=== PATIENT | female | born 1935 | race Caucasian/White ===

== ENCOUNTER 2018-11-04 15:39 | Observation (INO) | payer MEDICARE, MEDICAID ==
[2018-11-04] MEDS ORDERED: SIMVASTATIN 10 MG PO SCH (20:45)
[2018-11-04] MEDS ORDERED: ROPINIROLE HCL 0.25 MG PO SCH (21:15)
[2018-11-05 07:57] VITALS: BP 127/68
[2018-11-05] MEDS ORDERED: ASPIRIN 325 MG PO SCH (08:00)
[2018-11-05] MEDS ORDERED: CARTIA XT 120 MG PO SCH (08:00)
--- NOTE | 2018-11-05 09:02 | CT ---
DATE OF SERVICE: 11/04/2018 CLINICAL DATA: Mental Status Change Unenhanced brain CT: Multislice acquisition through the brain without IV contrast was performed. Comparison is made to a prior exam dated 04/18/2013 There is diffuse cerebral atrophy. There are periventricular lucencies bilaterally consistent with small vessel ischemic change. There is a subtle lucency in the left basal ganglia not present on the prior CT suspicious for a acute/subacute infarct. No masses or mass effect. No intracranial hemorrhage. No osseous abnormalities. No other significant interval changes from the prior. MTDD
--- NOTE | 2018-11-05 13:04 | PCM.DCSUM1 ---
Discharge Summary - Hospital Course HPI Initial Comments: Mental status change Brief History: Patient admitted 11/04/18 per social welfare clerk request due to patien being a possible vulnerable adult. Mental status change was reported by social welfare clerk and there was concern of patient being safe in the home. Patient had left burner on. After evaluation, patient does not appear to be cognitivley impaired. Patient will be discharged to home. building services coordinator contacted and notified of patient's discharge. Diagnosis: Stroke: No Modified Curtis Scale: No Symptoms at All Modified Curtis Scale Score: 0 - Discharge Data Discharge Date: 11/06/18 Discharge Disposition: Home, Self-Care 01 Condition: Good - Patient Summary/Data Consults: Consultations 11/04/18 15:54 OT Evaluation and Treatment [CONS] Routine Please Evaluate and Treat. OT Reason for Consult: ADL's This query below is only for informational purposes and is not editable. PT Evaluation and Treatment [CONS] Routine Please Evaluate and Treat. PT Reason for Consult: Balance This query below is only for informational purposes and is not editable. - Patient Instructions Diet: Regular Diet as Tolerated Showering/Bathing: May Shower - Discharge Plan Home Medications: Home Meds Aspirin 325 mg PO DAILY 04/23/13 [History] Omeprazole 20 mg PO ACBREAKFAST 04/23/13 [History] Pindolol 10 mg PO BID 04/23/13 [History] fentaNYL [Duragesic] 50 mcg TD Q72H 04/23/13 [History] FLUoxetine [PROzac] 10 mg PO BID 07/07/14 [History] Diltiazem HCl [Diltiazem 12Hr ER] 120 mg PO DAILY 11/04/18 [History] Melatonin 5 mg PO BEDTIME 11/04/18 [History] Simvastatin 10 mg PO QPM 11/04/18 [History] rOPINIRole HCl [Requip] 0.25 mg PO DAILY 11/04/18 [History] Patient Handouts: Fire Safety - Discharge Summary/Plan Comment DC Time >30 min.: No - Patient Data Vitals - Most Recent: Last Vital Signs Temp 97.1 F 11/05/18 07:55 Pulse 68 11/05/18 07:55 Resp 16 11/05/18 07:55 BP 127/68 11/05/18 07:55 Pulse Ox 98 11/05/18 07:55 Weight - Most Recent: 110 lb Lab Results - Last 24 hrs: Laboratory Results - last 24 hr 11/04/18 11/04/18 11/04/18 Range/Units 16:19 16:19 19:11 WBC 8.0 (4.0-11.0) K/uL RBC 4.50 (3.80-5.80) M/uL Hgb 13.4 (11.5-16.5) g/dL Hct 40.2 (37.0-47.0) % MCV 89 (76-96) fL MCH 29.8 (27.0-32.0) pg MCHC 33.3 (31.0-35.0) g/dL RDW 12.6 (11.0-16.0) % Plt Count 300 (150-500) K/uL MPV 9.5 (6.0-10.0) fL Neut % (Auto) 73.5 H (45.0-70.0) % Lymph % (Auto) 16.3 L (20.0-40.0) % [place] % (Auto) 7.6 (3.0-10.0) % Eos % (Auto) 2.0 (1.0-5.0) % Baso % (Auto) 0.6 H (0.0-0.5) % Neut # (Auto) 5.91 (2.00-7.50) K/uL Lymph # (Auto) 1.31 L (1.50-4.00) K/uL [place] # (Auto) 0.61 (0.20-0.80) K/uL Eos # (Auto) 0.16 (0.04-0.40) K/uL Baso # (Auto) 0.05 (0.02-0.10) K/uL Sodium 139 (136-145) mmol/L Potassium 4.3 (3.5-5.1) mmol/L Chloride 102 (98-107) mmol/L Carbon Dioxide 26.8 (21.0-32.0) mmol/L Anion Gap 14.5 (5.0-15.0) mmol/L BUN 12 (8-26) mg/dL Creatinine 0.54 L (0.55-1.02) mg/dL Est Cr Clr Drug Dosing TNP Estimated GFR (MDRD) > 60 (>60) MLS/MIN BUN/Creatinine Ratio 22.2 (6-25) Glucose 117 H (74-100) mg/dL Calcium 8.5 (8.5-10.1) mg/dL Total Bilirubin 0.5 (0.0-1.0) mg/dL AST 23 (15-37) U/L ALT 22 (12-78) U/L Alkaline Phosphatase 76 (46-116) U/L Total Protein 6.6 (6.4-8.2) g/dL Albumin 3.5 (3.4-5.0) g/dL Globulin 3.1 (2.2-4.2) g/dL Albumin/Globulin Ratio 1.1 (0.8-2.0) TSH, Ultra Sensitive 0.793 D (0.358-3.740) uIU/mL Urine Color Yellow Urine Appearance Clear (CLEAR) Urine pH 5.5 (5.0-8.0) Ur Specific [place] 1.025 (1.003-1.030) Urine Protein Negative (NEGATIVE) mg/dL Urine Glucose (UA) Negative (NEGATIVE) mg/dL Urine Ketones Negative (NEGATIVE) mg/dL Urine Occult Blood Negative (NEGATIVE) Urine Nitrite Negative (NEGATIVE) Urine Bilirubin Negative (NEGATIVE) Urine Urobilinogen 0.2 (0.2-1.0) E.U./dL Ur Leukocyte Esterase Negative (NEGATIVE) Urine RBC Not seen /HPF Urine WBC 0-5 H /HPF Ur Squamous Epith Cells Few /HPF DELIO Results - Last 24 hrs: Microbiology 11/04/18 16:37 MRSA Culture - Final Nares, Unspecified NO MRSA ISOLATED Med Orders - Current: Current Medications Aspirin [Aspirin] 325 Mg Enteric Coated Pt Own 325 mg PO DAILY [facility] Last Admin: 11/05/18 07:40 Dose: 325 mg Cartia Xt 120 MgPt (Own) 120 mg PO DAILY [facility] Last Admin: 11/05/18 07:40 Dose: 120 mg (Fluoxetine [Prozac] (10 Mg)*Pt Own Med*) 10 mg PO BID [facility] Last Admin: 11/05/18 07:42 Dose: 10 mg (Melatonin [ Melatonin] 5 Mg)*Pt Own Med* 5 mg PO BEDTIME [facility] Last Admin: 11/04/18 20:51 Dose: 5 mg (Omeprazole [ Omeprazole] 20 Mg)* Pt Own Med* 20 mg PO ACBREAKFAST [facility] Last Admin: 11/05/18 07:20 Dose: 20 mg (Pindolol [Pindolol] (10 Mg)*Pt Own Med*) 10 mg PO BID [facility] Last Admin: 11/05/18 07:41 Dose: 10 mg Ropinirole Hcl [ Requip] 0.25 MgPt Own 0.25 mg PO BEDTIME [facility] Last Admin: 11/04/18 21:00 Dose: 0.25 mg (Simvastatin [ Simvastatin] 10 Mg)* Pt Own Med* 10 mg PO QPM [facility] Last Admin: 11/04/18 20:50 Dose: 10 mg
== END 2018-11-05 13:10 | disposition home or self-care (01) ==
LOC: LB.MS 15:39 → UNDOADMOB 15:39 → LB.MS 15:54
PROVIDERS: ADMIT Nurse Practitioner Family; ATTEND Nurse Practitioner Family
DX: R41.82 Altered mental status, unspecified (principal); Z88.5 Allergy status to narcotic agent; Z88.0 Allergy status to penicillin; Z79.51 Long term (current) use of inhaled steroids; Z79.82 Long term (current) use of aspirin; Z79.899 Other long term (current) drug therapy
CPT/HCPCS: 36415; 70450; 80053; 81001; 84443; 85025; 87070; A9270; G0378

== ENCOUNTER 2018-11-13 13:19 | Inpatient (IN) | payer MEDICARE, MEDICAID ==
--- NOTE | 2018-11-13 14:38 | EDM.PDOC ---
ED HPI GENERAL MEDICAL PROBLEM - General Chief Complaint: Behavioral/Psych Stated Complaint: CONFUSION Time Seen by Provider: 11/13/18 14:15 Source of Information: Reports: Patient, RN, Other (Sarai BENNETT) - History of Present Illness INITIAL COMMENTS - FREE TEXT/NARRATIVE: 83 yr female presents with the county Sarai BENNETT. Pt quit taking her Fentanyl about 5 days ago. She was concerned about taking the strong pain medicine. Her sister told her it is a strong medicine and she shouldn't be taking it. She does take flonase about daily. States she doesn't have her medications set- up and does place them in the room to take them daily. Pt states she is having pain to the right shoulder and would like to have another injection for the pain. States she is seeing hallucinations, people in her apartment, lying in her closet. States they are mean and will spray things in her eyes. States they don't talk to her. DONALD is concerned of her safety in her home and would like to determine if there is any health concerns that could be causing the hallucinations. If no health concerns, then possible termite exterminator care would be needed. - Related Data Allergies Allergy/AdvReac Type Severity Reaction Status Date / Time latex Allergy Unknown Hives Verified 11/13/18 14:02 Penicillins Allergy Cannot Verified 11/13/18 14:02 Remember meperidine HCl [From Demerol] AdvReac Nausea Verified 11/13/18 14:02 tramadol AdvReac Nausea and Verified 11/13/18 14:02 Vomiting Home Meds: Home Meds Aspirin 325 mg PO BID 04/23/13 [History] Omeprazole 20 mg PO ACBREAKFAST 04/23/13 [History] Pindolol 10 mg PO BID 04/23/13 [History] fentaNYL [Duragesic] 50 mcg TD Q72H 04/23/13 [History] FLUoxetine [PROzac] 10 mg PO BID 07/07/14 [History] Diltiazem HCl [Diltiazem 12Hr ER] 120 mg PO DAILY 11/04/18 [History] Melatonin 5 mg PO BEDTIME 11/04/18 [History] Simvastatin 10 mg PO QPM 11/04/18 [History] rOPINIRole HCl [Requip] 0.25 mg PO DAILY 11/04/18 [History] Fluticasone Propionate [Flonase] 1 spray NASBOTH QPM 11/13/18 [History] Mv-Min/Iron/Folic/Calcium/Vitk [Women's Multivitamin Tablet] 1 each PO DAILY [History] diphenhydrAMINE [Benadryl] 25 mg PO Q6H PRN 11/13/18 [History] Past Medical History HEENT History: Reports: Impaired Vision Cardiovascular History: Reports: High Cholesterol, Hypertension, Other (See Below) Other Cardiovascular History: Right carotid stenosis Musculoskeletal History: Reports: Back Pain, Chronic, Osteoarthritis Neurological History: Reports: Headaches, Chronic, Other (See Below) 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 Psychiatric History: Reports: Depression - Past Surgical History HEENT Surgical History: Reports: Visual Other HEENT Surgeries/Procedures: wears glasses Neurological Surgical History: Reports: None Social & Family History - Family History Family Medical History: Noncontributory - Caffeine Use Caffeine Use: Reports: Coffee - Living Situation & Occupation Living situation: Reports: , Other Occupation: Retired ED ROS GENERAL - Review of Systems Review Of Systems: See Below Constitutional: Reports: No Symptoms HEENT: Reports: Vision Change Respiratory: Reports: No Symptoms Cardiovascular: Reports: No Symptoms GI/Abdominal: Reports: No Symptoms : Reports: No Symptoms Musculoskeletal: Reports: Neck Pain, Shoulder Pain Skin: Reports: No Symptoms Neurological: Reports: Confusion. Denies: Dizziness, Headache Psychiatric: Reports: Anxiety, Hallucinations Hematologic/Lymphatic: Reports: No Symptoms Immunologic: Reports: No Symptoms ED EXAM, GENERAL - Physical Exam Exam: See Below Exam Limited By: No Limitations General Appearance: Alert, No Apparent Distress Ears: Hearing Loss Throat/Mouth: Normal Voice, No Airway Compromise, Other (lost bottom denture) Head: Atraumatic, Normocephalic Neck: Supple, Non-Tender Respiratory/Chest: Lungs Clear, Normal Breath Sounds Cardiovascular: Regular Rate, Rhythm, No Edema GI/Abdominal: Normal Bowel Sounds, Soft, Non-Tender, No Distention Extremities: Normal Inspection, Non-Tender, No Pedal Edema Neurological: Alert, Oriented, Normal Cognition Psychiatric: Normal Affect, Normal Mood Skin Exam: Warm, Dry, Normal Color Lymphatic: No Adenopathy Course - Vital Signs Last Recorded V/S: Last Vital Signs Temp 98.1 F 11/13/18 16:47 Pulse 58 L 11/13/18 16:47 Resp 18 04/24/19 16:47 BP 139/68 11/13/18 16:47 Pulse Ox 99 11/13/18 16:47 - Orders/Labs/Meds Orders: Medication Orders Sodium Chloride (Normal Saline) 1,000 mls @ 500 mls/hr IV ASDIRECTED [facility] Stop: 11/13/18 18:29 Last Admin: 11/13/18 16:44 Dose: 500 mls/hr Non-Formulary Medication (Aspirin [Aspirin]) 325 mg PO BID [facility] Non-Formulary Medication (Diltiazem Hcl [Diltiazem 12hr Er]) 120 mg PO DAILY [facility] Non-Formulary Medication (Diphenhydramine [Benadryl]) 25 mg PO Q6H PRN PRN Reason: Allergies Non-Formulary Medication (Fentanyl [Duragesic]) 25 mcg TD Q72H [facility] Non-Formulary Medication (Fluoxetine [Prozac]) 10 mg PO DAILY [facility] Non-Formulary Medication (Fluticasone Propionate [Flonase]) 1 spray NASBOTH QPM [facility] Non-Formulary Medication (Melatonin [Melatonin]) 5 mg PO BEDTIME [facility] Non-Formulary Medication (Mv-Min/Iron/Folic/Calcium/Vitk [Women's Multivitamin Tablet]) 1 each PO DAILY [facility] Non-Formulary Medication (Omeprazole [Omeprazole]) 20 mg PO ACBREAKFAST [facility] Non-Formulary Medication (Pindolol [Pindolol]) 10 mg PO BID [facility] Non-Formulary Medication (Ropinirole Hcl [Requip]) 0.25 mg PO DAILY [facility] Non-Formulary Medication (Simvastatin [Simvastatin]) 10 mg PO QPM [facility] Sodium Chloride (Saline Flush) 10 ml FLUSH ASDIRECTED PRN PRN Reason: Keep Vein Open Labs: Laboratory Tests 11/13/18 11/13/18 11/13/18 Range/Units 14:35 14:35 15:02 WBC 6.7 (4.0-11.0) K/uL RBC 4.46 (3.80-5.80) M/uL Hgb 13.3 (11.5-16.5) g/dL Hct 39.8 (37.0-47.0) % MCV 89 (76-96) fL MCH 29.8 (27.0-32.0) pg MCHC 33.4 (31.0-35.0) g/dL RDW 12.6 (11.0-16.0) % Plt Count 292 (150-500) K/uL MPV 9.8 (6.0-10.0) fL Neut % (Auto) 70.8 H (45.0-70.0) % Lymph % (Auto) 17.7 L (20.0-40.0) % [place] % (Auto) 8.6 (3.0-10.0) % Eos % (Auto) 2.2 (1.0-5.0) % Baso % (Auto) 0.7 H (0.0-0.5) % Neut # (Auto) 4.76 (2.00-7.50) K/uL Lymph # (Auto) 1.19 L (1.50-4.00) K/uL [place] # (Auto) 0.58 (0.20-0.80) K/uL Eos # (Auto) 0.15 (0.04-0.40) K/uL Baso # (Auto) 0.05 (0.02-0.10) K/uL Sodium 140 (136-145) mmol/L Potassium 4.0 (3.5-5.1) mmol/L Chloride 101 (98-107) mmol/L Carbon Dioxide 28.5 (21.0-32.0) mmol/L Anion Gap 14.5 (5.0-15.0) mmol/L BUN 11 (8-26) mg/dL Creatinine 0.60 (0.55-1.02) mg/dL Est Cr Clr Drug Dosing TNP Estimated GFR (MDRD) > 60 (>60) MLS/MIN BUN/Creatinine Ratio 18.3 (6-25) Glucose 140 H (74-100) mg/dL Calcium 8.7 (8.5-10.1) mg/dL Total Bilirubin 0.6 (0.0-1.0) mg/dL AST 27 (15-37) U/L ALT 34 (12-78) U/L Alkaline Phosphatase 84 (46-116) U/L Total Protein 6.8 (6.4-8.2) g/dL Albumin 3.6 (3.4-5.0) g/dL Globulin 3.2 (2.2-4.2) g/dL Albumin/Globulin Ratio 1.1 (0.8-2.0) Urine Color Yellow Urine Appearance Clear (CLEAR) Urine pH 6.0 (5.0-8.0) Ur Specific [place] 1.015 (1.003-1.030) Urine Protein Negative (NEGATIVE) mg/dL Urine Glucose (UA) Negative (NEGATIVE) mg/dL Urine Ketones Negative (NEGATIVE) mg/dL Urine Occult Blood Negative (NEGATIVE) Urine Nitrite Negative (NEGATIVE) Urine Bilirubin Negative (NEGATIVE) Urine Urobilinogen 0.2 (0.2-1.0) E.U./dL Ur Leukocyte Esterase Negative (NEGATIVE) Urine RBC Not seen /HPF Urine WBC Not seen /HPF Ur Squamous Epith Cells Few /HPF Urine Bacteria Not seen /HPF Meds: Medications Generic Name Dose Route Start Last Admin Trade Name Freq PRN Reason Stop Dose Admin Sodium Chloride 1,000 mls @ 500 mls/hr 11/13/18 16:30 11/13/18 16:44 Normal Saline IV 11/13/18 18:29 500 mls/hr ASDIRECTED [facility] Administration Non-Formulary Medication 325 mg 11/13/18 20:00 Aspirin [Aspirin] PO BID [facility] Non-Formulary Medication 120 mg 11/14/18 08:00 Diltiazem Hcl [Diltiazem 12hr Er] PO DAILY [facility] Non-Formulary Medication 25 mg 11/13/18 16:27 Diphenhydramine [Benadryl] PO Q6H PRN Allergies Non-Formulary Medication 25 mcg 11/13/18 16:30 Fentanyl [Duragesic] TD Q72H [facility] Non-Formulary Medication 10 mg 11/14/18 08:00 Fluoxetine [Prozac] PO DAILY [facility] Non-Formulary Medication 1 spray 11/13/18 20:00 Fluticasone Propionate [Flonase] NASBOTH QPM [facility] Non-Formulary Medication 5 mg 11/13/18 20:00 Melatonin [Melatonin] PO BEDTIME [facility] Non-Formulary Medication 1 each 11/14/18 08:00 Mv-Min/Iron/Folic/Calcium/Vitk [Women's Multivitamin Tablet] PO DAILY [facility] Non-Formulary Medication 20 mg 11/14/18 07:00 Omeprazole [Omeprazole] PO ACBREAKFAST [facility] Non-Formulary Medication 10 mg 11/13/18 20:00 Pindolol [Pindolol] PO BID [facility] Non-Formulary Medication 0.25 mg 11/13/18 20:00 Ropinirole Hcl [Requip] PO DAILY [facility] Non-Formulary Medication 10 mg 11/13/18 20:00 Simvastatin [Simvastatin] PO QPM [facility] Sodium Chloride 10 ml 11/13/18 16:27 Saline Flush FLUSH ASDIRECTED PRN Keep Vein Open - Re-Assessments/Exams Free Text/Narrative Re-Assessment/Exam: 11/13/18 16:57 JANIS BENNETT has brought in documentation of [employer] manager of pt calling for assist and misplacing items throughout the apartment complex and hallucinations and calling law enforcement to check on residence. Another documentation of homemakers finding environmental concerns of burnt pots/pans and pt ingesting possibly contaminated, old food/fluids. Pt has misplaced her dentures and can' t find them. SW is concerned pt isn't taking her medication correctly and refusing to have assist with her medications. There is a sugar like substance in her bottle of pills. Pt reports seeing people in her apartment, that aren't there and they don't talk to her, but do spray fluid into her eyes and they don' t stop when asked. Another child sleeps in the closet and makes their bed and she has seen cubs in the cupboard. Pt recently quit taking her Fentanyl patch for at least 5 days. States he sister told her it was a bad medication. The dose for 50 mcg every 3 days. DONALD notes that staff have told her that pt will sometimes have 3 patches on. Pt states she is trying to use up the medicine in the patch. Departure - Departure Time of Disposition: 14:15 Disposition: Refer to Observation Condition: Good Clinical Impression: Shoulder pain, right, Hallucinations, Confusion - Discharge Information *PRESCRIPTION DRUG MONITORING PROGRAM REVIEWED*: Not Applicable *COPY OF PRESCRIPTION DRUG MONITORING REPORT IN PATIENT EJ: Not Applicable - Problem List & Annotations (1) Confusion SNOMED Code(s): 664852660 Code(s): R41.0 - DISORIENTATION, UNSPECIFIED Status: Acute Current Visit : Yes (2) Hallucinations SNOMED Code(s): 3903119 Code(s): R44.3 - HALLUCINATIONS, UNSPECIFIED Status: Acute Current Visit : Yes (3) Shoulder pain, right SNOMED Code(s): 24034616, 69549577 Code(s): M25.511 - PAIN IN RIGHT SHOULDER Status: Acute Current Visit: Yes - Problem List Review Problem List Initiated/Reviewed/Updated: Yes - Assessment/Plan Plan: Will place on observation for this shoulder pain, neck pain, confusion, and hallucinations. will decrease Fentanyl patch to 25mcg, change every 3 day Will decrease Prozac to daily from bid. Continue other medications from home. IV Nacl, fluid bolus of 1 liter. Will monitor for any hallucinations, confusion, possible DT from no Fentanyl patch for 5 days. Monitor pain. Comfort measures as needed.
[2018-11-13] MEDS ORDERED: diphenhydrAMINE 25 MG Cap **OWN MED PO PRN (16:27)
[2018-11-13] MEDS ORDERED: Sodium Chloride 0.9% 10 ML Syringe FLUSH PRN (16:27)
[2018-11-13] MEDS ORDERED: Sodium Chloride 0.9% 1,000 ML IV SCH (16:30)
[2018-11-13] MEDS: FENTANYL 25 MCG TD SCH ×2 (18:41→18:58)
[2018-11-13] MEDS ORDERED: FENTANYL 25 MCG/HR TRDERM SCH (19:00)
[2018-11-13] MEDS ORDERED: Non-Formulary Medication 1 Each (Simvastatin [Simvastatin] 10 MG) PO SCH (20:00)
[2018-11-13] MEDS ORDERED: PINDOLOL 10 MG PO SCH (20:00)
[2018-11-13] MEDS ORDERED: Non-Formulary Medication 1 Each (Melatonin [Melatonin] 5 MG) PO SCH (20:00)
[2018-11-13] MEDS ORDERED: Non-Formulary Medication 1 Each (Fluticasone Propionate [Flonase] 1 SPRAY) NASBOTH SCH (20:00)
[2018-11-13] MEDS ORDERED: Non-Formulary Medication 1 Each (Aspirin [Aspirin] 325 MG) PO SCH (20:00)
[2018-11-13] MEDS ORDERED: ROPINIROLE HCL 0.25 MG PO SCH (20:00)
[2018-11-13] MEDS: Aspirin 325 MG Tab.EC **OWN MED PO SCH (21:08)
[2018-11-13] MEDS: PINDOLOL 10 MG PO SCH (21:09)
[2018-11-13] MEDS: MELATONIN 5 MG PO SCH (21:11)
[2018-11-13] MEDS: ROPINIROLE 0.25 MG PO SCH (21:12)
[2018-11-13] MEDS: Simvastatin 10 MG Tab **OWN MED PO SCH (21:12)
[2018-11-14] MEDS ORDERED: Non-Formulary Medication 1 Each (Omeprazole [Omeprazole] 20 MG) PO SCH (07:00)
[2018-11-14] MEDS ORDERED: DILTIAZEM HCL 120 MG PO SCH (08:00)
[2018-11-14] MEDS ORDERED: VITK PO SCH (08:00)
[2018-11-14] MEDS ORDERED: [UNRECOGNIZED DRUG - OTHER] PO SCH (08:00)
[2018-11-14] MEDS ORDERED: MV MIN PO SCH (08:00)
[2018-11-14] MEDS ORDERED: CALCIUM PO SCH (08:00)
[2018-11-14] MEDS ORDERED: FOLIC PO SCH (08:00)
[2018-11-14] MEDS ORDERED: FLUOXETINE 10 MG PO SCH (08:00)
[2018-11-14] MEDS ORDERED: IRON PO SCH (08:00)
[2018-11-14] MEDS: DILTIAZEM 120 MG PO SCH (08:16)
[2018-11-14] MEDS: FLUOXETINE 10 MG PO SCH (08:17)
[2018-11-14] MEDS: PINDOLOL 10 MG PO SCH ×2 (08:17→20:05)
[2018-11-14] MEDS: Aspirin 325 MG Tab.EC **OWN MED PO SCH ×2 (08:17→19:52)
--- NOTE | 2018-11-14 08:42 | PCM.SN ---
- Free Text/Narrative Note: Pt continues with hallucinations and restless during night and little sleep. Pt is calm and appropriate to talk to. She has several concerns with her apartment and bills and her cat, clothing needs. Consult for PT/OT to evaluate and treat and assist with discharge planning. SW consult for hospital SW to assist with discharge planning.
[2018-11-14] MEDS: MELATONIN 5 MG PO SCH (19:53)
[2018-11-14] MEDS: ROPINIROLE 0.25 MG PO SCH (19:54)
[2018-11-14] MEDS: Simvastatin 10 MG Tab **OWN MED PO SCH (19:54)
[2018-11-15] MEDS: Aspirin 325 MG Tab.EC **OWN MED PO SCH (08:01)
[2018-11-15] MEDS: FLUOXETINE 10 MG PO SCH (08:02)
[2018-11-15] MEDS: DILTIAZEM 120 MG PO SCH (09:00)
[2018-11-15] MEDS: PINDOLOL 10 MG PO SCH (09:00)
--- NOTE | 2018-11-15 12:21 | PCM.HP ---
H&P History of Present Illness - General Date of Service: 11/15/18 Admit Problem/Dx: Admission Diagnosis/Problem Admission Diagnosis/Problem Hallucinations Source of Information: Patient, Old Records, Provider, RN, RN Notes Reviewed History Limitations: Reports: Other (Concerns of dementia, confusion) - History of Present Illness Initial Comments - Free Text/Narative: This is a 83yo F who was placed in observation for multiple concerns. She has been having hallucinations for the past month. She see children and other figures and speaks with them. There are no aggressive tendencies and she has noticed herself that this has been going on. There is some concern that this may be due to her Fentanyl and although she did stop her 75mcg patch for 5 days there was not much improvement. When she was admitted to observation she was restarted on 25mcg. Patient states she does still have hallucinations but they do seem better. Patient plan was to be transferred to [facility] but per their admissions nurse they feel that she does not qualify and that it would be 'fraud ' if they admitted her into inpatient psychiatric services as they do not feel she is psychotic. Patient has been seen by social worker health services many times and has been admitted into observation a few times for similar concerns. There are concerns that her living quarters are unkempt and that food is left for days or longer and she continues to eat those food that appear unsuitable or rotten. The concern is that her judgement is off and she may not be able to make independent decisions herself. She lives alone and does not have family nearby. Her closest relative is her sister who is in [place]. Onset of Symptoms: Reports: Gradual Duration of Symptoms: Reports: Week(s):, Getting Worse Location: Reports: Generalized Right Shoulder Pain Score (Numeric/FACES): 4 - Related Data Allergies/Adverse Reactions: Allergies Allergy/AdvReac Type Severity Reaction Status Date / Time latex Allergy Unknown Hives Verified 11/13/18 14:02 Penicillins Allergy Cannot Verified 11/13/18 14:02 Remember meperidine HCl [From Demerol] AdvReac Nausea Verified 11/13/18 14:02 tramadol AdvReac Nausea and Verified 11/13/18 14:02 Vomiting Home Medications: Home Meds Aspirin 325 mg PO BID 04/23/13 [History] Omeprazole 20 mg PO ACBREAKFAST 10/02/13 [History] Pindolol 10 mg PO BID 04/23/13 [History] fentaNYL [Duragesic] 50 mcg TD Q72H 04/23/13 [History] FLUoxetine [PROzac] 10 mg PO BID 07/07/14 [History] Diltiazem HCl [Diltiazem 12Hr ER] 120 mg PO DAILY 11/04/18 [History] Melatonin 5 mg PO BEDTIME 11/04/18 [History] Simvastatin 10 mg PO QPM 11/04/18 [History] rOPINIRole HCl [Requip] 0.25 mg PO DAILY 11/04/18 [History] Fluticasone Propionate [Flonase] 1 spray NASBOTH QPM 11/13/18 [History] Mv-Min/Iron/Folic/Calcium/Vitk [Women's Multivitamin Tablet] 1 each PO DAILY [History] diphenhydrAMINE [Benadryl] 25 mg PO Q6H PRN 11/13/18 [History] Past Medical History HEENT History: Reports: Impaired Vision Cardiovascular History: Reports: High Cholesterol, Hypertension, Other (See Below) Other Cardiovascular History: Right carotid stenosis Musculoskeletal History: Reports: Back Pain, Chronic, Osteoarthritis Neurological History: Reports: Headaches, Chronic, Other (See Below) 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 Exam - Exam Exam: See Below - Vital Signs Vital Signs: Last Vital Signs Temp 37.0 C 11/15/18 08:45 Pulse 62 11/15/18 09:00 Resp 18 11/15/18 08:45 BP 142/76 H 11/15/18 09:00 Pulse Ox 99 11/15/18 08:45 Weight: 50.077 kg - Exam General: Cooperative HEENT: PERRLA, Conjunctiva Clear, EOMI Neck: Supple, Trachea Midline Lungs: Clear to Auscultation, Normal Respiratory Effort Cardiovascular: Regular Rate, Regular Rhythm GI/Abdominal Exam: Normal Bowel Sounds Back Exam: Other (kyphosis/scoliosis) Extremities: Normal Inspection - Patient Data Result Diagrams: 11/13/18 14:35 11/13/18 14:35 Bony Results Last 24 hrs: Microbiology 11/13/18 Unknown MRSA Surveillance Culture - Final Nasal, Unspecified NO MRSA ISOLATED *Q Meaningful Use (ADM) - VTE Risk Assess *Q Other 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 - Problem List (1) Weakness SNOMED Code(s): 01608469 ICD Code: R53.1 - WEAKNESS Status: Acute Current Visit: Yes (2) Confusion SNOMED Code(s): 118621394 ICD Code: R41.0 - DISORIENTATION, UNSPECIFIED Status: Acute Current Visit : Yes (3) Hallucinations SNOMED Code(s): 1257851 ICD Code: R44.3 - HALLUCINATIONS, UNSPECIFIED Status: Acute Current Visit : Yes (4) Shoulder pain, right SNOMED Code(s): 88127547, 03010358 ICD Code: M25.511 - PAIN IN RIGHT SHOULDER Status: Acute Current Visit: Yes Problem List Initiated/Reviewed/Updated: Yes Orders Last 24hrs: Active Orders 24 hr Category Date Time Status Patient Status [ADT] Routine ADT 11/15/18 12:12 Ordered Oxygen Therapy [RC] PRN Care 11/15/18 12:12 Ordered VTE/DVT Education [RC] Per Unit Routine Care 11/15/18 12:12 Ordered Vital Signs [RC] Q4H Care 11/15/18 12:12 Ordered Medication Orders Aspirin (Ecotrin) 325 mg PO BID [facility] Last Admin: 11/15/18 08:01 Dose: 325 mg Admin: 11/14/18 19:52 Dose: 325 mg Admin: 11/14/18 08:17 Dose: 325 mg Admin: 11/13/18 21:08 Dose: 325 mg Diltiazem HCl (Cardizem Cd) 120 mg PO DAILY [facility] Last Admin: 11/15/18 09:00 Dose: 120 mg Admin: 11/14/18 08:16 Dose: 120 mg Diphenhydramine HCl (Benadryl) 25 mg PO Q6H PRN PRN Reason: Allergies Last Admin: 11/13/18 23:48 Dose: 25 mg Fentanyl (Duragesic) 25 mcg TRDERM Q72H [facility] Last Admin: 11/13/18 18:41 Dose: 25 mcg Fluoxetine HCl (Prozac) 10 mg PO DAILY [facility] Last Admin: 11/15/18 08:02 Dose: 10 mg Admin: 11/14/18 08:17 Dose: 10 mg Fluticasone Propionate (Flonase) 0 gm NASBOTH QPM [facility] Last Admin: 11/14/18 19:52 Dose: 1 spray Admin: 11/13/18 21:08 Dose: 1 spray Non-Formulary Medication (Mv-Min/Iron/Folic/Calcium/Vitk [Women's Multivitamin Tablet]) 1 each PO DAILY [facility] Non-Formulary Medication (Omeprazole [Omeprazole]) 20 mg PO ACBREAKFAST [facility] Melatonin 5mg Tab * (*Own Med) 0 each PO BEDTIME [facility] Last Admin: 11/14/18 19:53 Dose: 1 each Admin: 11/13/18 21:11 Dose: 1 each Pindolol (Pindolol) 10 mg PO BID [facility] Last Admin: 11/15/18 09:00 Dose: 10 mg Admin: 11/14/18 20:05 Dose: 10 mg Admin: 11/14/18 08:17 Dose: 10 mg Admin: 11/13/18 21:09 Dose: 10 mg Ropinirole HCl (Requip) 0.25 mg PO BEDTIME [facility] Last Admin: 11/14/18 19:54 Dose: 0.25 mg Admin: 11/13/18 21:12 Dose: 0.25 mg Simvastatin (Zocor) 10 mg PO QPM [facility] Last Admin: 11/14/18 19:54 Dose: 10 mg Admin: 11/13/18 21:12 Dose: 10 mg Assessment/Plan Comment:: Patient admitted for treatment of hallucinations, PT/OT strengthening and evaluation/management. We will consult for further placement as well.
[2018-11-15] MEDS: QUEtiapine 25 MG Tab PO SCH (20:36)
[2018-11-15] MEDS: Simvastatin 10 MG Tab PO SCH (20:38)
[2018-11-15] MEDS: Aspirin 325 MG Tab.EC PO SCH (20:39)
[2018-11-15] MEDS: rOPINIRole 0.25 MG Tab PO SCH (20:39)
[2018-11-15] MEDS: Pindolol 10 MG Tab PO SCH (20:58)
[2018-11-15] MEDS: MELATONIN 5 MG PO SCH (20:59)
[2018-11-16] MEDS: Diltiazem 120 MG Cap.CD PO SCH (08:07)
[2018-11-16] MEDS: Omeprazole 20 MG Cap.CR PO SCH (08:08)
[2018-11-16] MEDS: Multivitamins with Iron/Calcium/Folic Acid/Minerals Tab PO SCH (08:08)
[2018-11-16] MEDS: FLUoxetine 10 MG Cap PO SCH (08:08)
[2018-11-16] MEDS: Aspirin 325 MG Tab.EC PO SCH ×2 (08:09→19:31)
[2018-11-16] MEDS: Pindolol 10 MG Tab PO SCH ×2 (08:10→19:32)
--- NOTE | 2018-11-16 10:51 | PN ---
DATE OF VISIT: 11/16/2018 SUBJECTIVE: She is currently in the hospital with problems with hallucinations. She has had these hallucinations for about 6 weeks. She has had episodes of forgetfulness as well. There was an attempt to have her placed in a facility at [facility] yesterday, but they did not accept her. Therefore, the patient was started on Seroquel 25 mg at bedtime, first dose was last evening. Nursing staff tells me that she seems to be doing somewhat better. She still has moments of frustration. She is able to get around with standby assist using a cane. She recently scored 20/30 on the mini-mental exam. Nursing staff has no other acute concerns. When entering the room today, the patient was sleeping quietly in her chair. She awoke quickly to verbal stimuli. She is smiley and pleasant. She has no complaints of anything and states that she feels fine today. OBJECTIVE: VITAL SIGNS: Reviewed. Blood pressure is 133/73. LUNGS: Clear. CARDIAC: Heart sounds are distinct without murmurs. SKIN: Warm and dry. ASSESSMENT AND PLAN: We will monitor the patient. We did discuss the possibility of increasing her Seroquel to 25 mg, but she seems to be doing okay right now. Nursing staff will monitor and if things change, I would increase her Seroquel to b.i.d. dosing. CRS/MODL /[id number] MTDD
[2018-11-16] MEDS: QUEtiapine 25 MG Tab PO SCH (19:31)
[2018-11-16] MEDS: rOPINIRole 0.25 MG Tab PO SCH (19:31)
[2018-11-16] MEDS: Simvastatin 10 MG Tab PO SCH (19:32)
[2018-11-16] MEDS: MELATONIN 5 MG PO SCH (19:35)
[2018-11-17] MEDS ORDERED: Acetaminophen 325 MG Tab PO ONE (01:00)
[2018-11-17] MEDS ORDERED: Acetaminophen 500 MG Tab ONE (01:04)
[2018-11-17] MEDS: Omeprazole 20 MG Cap.CR PO SCH (08:45)
[2018-11-17] MEDS: Diltiazem 120 MG Cap.CD PO SCH (08:46)
[2018-11-17] MEDS: Pindolol 10 MG Tab PO SCH ×2 (08:47→20:32)
[2018-11-17] MEDS: Aspirin 325 MG Tab.EC PO SCH ×2 (08:47→20:29)
[2018-11-17] MEDS: FLUoxetine 10 MG Cap PO SCH (08:48)
[2018-11-17] MEDS: Multivitamins with Iron/Calcium/Folic Acid/Minerals Tab PO SCH (08:48)
[2018-11-17] MEDS: Acetaminophen 325 MG Tab PO PRN ×3 (08:51→20:37)
--- NOTE | 2018-11-17 12:55 | PN ---
DATE OF VISIT: 11/17/2018 SUBJECTIVE: The patient has been here for a couple of days with problems with hallucinations. She was started on Seroquel 25 mg at bedtime 2 evenings ago. Nursing staff states that she went through the night quite well. She slept mostly after midnight. She did get Tylenol last evening for shoulder pain. The patient has been doing good this morning. There have not been any reports of hallucinations recently. The patient is concerned about possibly having a carotid artery cleaned out on Sunday in [place]. Nursing staff is unaware of this. Upon entering the room, the patient is sitting in her chair. She is awake. She is smiley and pleasant in nature. She states that she has some shoulder discomfort, but the Tylenol seems to help. 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 OBJECTIVE: GENERAL: The patient is awake and alert, in no obvious distress. LUNGS: Clear with slightly reduced air exchange throughout the lung [place]. CARDIAC: Heart sounds are distinct. I do not hear any murmurs. SKIN: Warm and dry. ASSESSMENT AND PLAN: At this point, I advised the patient that I will pass this on to Dr. Diaz tomorrow morning about her possible endarterectomy procedure. We will keep her medications at the same dose. Yesterday, we were discussing the possibility of increasing the Seroquel to b.i.d., but she is doing well on the current dose, therefore, we will not make any changes. CRS/MODL /[id number]
[2018-11-17] MEDS: MELATONIN 5 MG PO SCH (20:33)
[2018-11-17] MEDS: rOPINIRole 0.25 MG Tab PO SCH (20:34)
[2018-11-17] MEDS: QUEtiapine 25 MG Tab PO SCH (20:35)
[2018-11-17] MEDS: Simvastatin 10 MG Tab PO SCH (20:35)
[2018-11-17] MEDS: diphenhydrAMINE 25 MG Cap PO PRN (20:36)
[2018-11-18] MEDS: Omeprazole 20 MG Cap.CR PO SCH (07:53)
[2018-11-18] MEDS: FLUoxetine 10 MG Cap PO SCH (07:56)
[2018-11-18] MEDS: Multivitamins with Iron/Calcium/Folic Acid/Minerals Tab PO SCH (07:56)
[2018-11-18] MEDS: Aspirin 325 MG Tab.EC PO SCH ×2 (07:56→20:20)
[2018-11-18] MEDS: Diltiazem 120 MG Cap.CD PO SCH (08:10)
[2018-11-18] MEDS: Pindolol 10 MG Tab PO SCH ×2 (08:11→20:23)
[2018-11-18] MEDS: Acetaminophen 325 MG Tab PO PRN ×2 (15:08→22:05)
--- NOTE | 2018-11-18 17:03 | PCM.PN ---
- General Info Date of Service: 11/18/18 Subjective Update: Patient states she is doing better and feels that the voices and visual hallucinations are not as prominent. Patient denies any other concerns today. Functional Status: Reports: Tolerating Diet - Review of Systems General: Reports: Weakness HEENT: Reports: Glasses Pulmonary: Reports: No Symptoms Cardiovascular: Reports: No Symptoms Gastrointestinal: Reports: No Symptoms Genitourinary: Reports: No Symptoms Musculoskeletal: Reports: No Symptoms Skin: Reports: No Symptoms Neurological: Reports: Weakness Psychiatric: Reports: Hallucinations - Patient Data Vitals - Most Recent: Last Vital Signs Temp 36.6 C 11/18/18 08:00 Pulse 62 11/18/18 08:11 Resp 18 11/18/18 08:00 BP 140/74 11/18/18 08:11 Pulse Ox 98 11/18/18 08:00 Weight - Most Recent: 50.077 kg Med Orders - Current: Current Medications Acetaminophen (Tylenol) 650 mg PO Q4H PRN PRN Reason: Pain Last Admin: 11/18/18 15:08 Dose: 650 mg Aspirin (Ecotrin) 325 mg PO BID [facility] Last Admin: 11/18/18 07:56 Dose: 325 mg Diltiazem HCl (Cardizem Cd) 120 mg PO DAILY [facility] Last Admin: 11/18/18 08:10 Dose: 120 mg Diphenhydramine HCl (Benadryl) 25 mg PO Q6H PRN PRN Reason: Allergies Last Admin: 11/17/18 20:36 Dose: 25 mg Fentanyl (Duragesic) 25 mcg TRDERM Q72H [facility] Last Admin: 11/16/18 19:29 Dose: 25 mcg Fluoxetine HCl (Prozac) 10 mg PO DAILY [facility] Last Admin: 11/18/18 07:56 Dose: 10 mg Fluticasone Propionate (Flonase) 0 gm NASBOTH QPM [facility] Last Admin: 11/17/18 20:30 Dose: 1 spray Multivitamins/Minerals (Thera M Plus) 1 tab PO DAILY [facility] Last Admin: 11/18/18 07:56 Dose: 1 tab Omeprazole (Omeprazole) 20 mg PO ACBREAKFAST [facility] Last Admin: 11/18/18 07:53 Dose: 20 mg Melatonin 5mg Tab * (*Own Med) 0 each PO BEDTIME [facility] Last Admin: 11/17/18 20:33 Dose: 1 each Pindolol (Pindolol) 10 mg PO BID [facility] Last Admin: 11/18/18 08:11 Dose: 10 mg Quetiapine Fumarate (Seroquel) 25 mg PO BEDTIME [facility] Last Admin: 11/17/18 20:35 Dose: 25 mg Ropinirole HCl (Requip) 0.25 mg PO BEDTIME [facility] Last Admin: 11/17/18 20:34 Dose: 0.25 mg Senna/Docusate Sodium (Senna Plus) 1 tab PO BEDTIME PRN PRN Reason: Constipation Last Admin: 11/16/18 21:09 Dose: 1 tab Simvastatin (Zocor) 10 mg PO QPM [facility] Last Admin: 11/17/18 20:35 Dose: 10 mg Discontinued Medications Acetaminophen (Tylenol Extra Strength) Confirm Administered Dose 1,000 mg .ROUTE .STK-MED ONE Stop: 11/17/18 01:05 Last Admin: 11/17/18 07:04 Dose: Not Given Acetaminophen (Tylenol) 1,000 mg PO NOW ONE Stop: 11/17/18 01:01 Last Admin: 11/17/18 01:00 Dose: 1,000 mg Aspirin (Ecotrin) 325 mg PO BID [facility] Last Admin: 11/15/18 08:01 Dose: 325 mg Diltiazem HCl (Cardizem Cd) 120 mg PO DAILY [facility] Last Admin: 11/15/18 09:00 Dose: 120 mg Diphenhydramine HCl (Benadryl) 25 mg PO Q6H PRN PRN Reason: Allergies Last Admin: 11/13/18 23:48 Dose: 25 mg Fentanyl (Duragesic) 25 mcg TRDERM Q72H [facility] Last Admin: 11/13/18 18:41 Dose: 25 mcg Fluoxetine HCl (Prozac) 10 mg PO DAILY [facility] Last Admin: 11/15/18 08:02 Dose: 10 mg Fluticasone Propionate (Flonase) 0 gm NASBOTH QPM [facility] Last Admin: 11/14/18 19:52 Dose: 1 spray Sodium Chloride (Normal Saline) 1,000 mls @ 500 mls/hr IV ASDIRECTED [facility] Stop: 11/13/18 18:29 Last Admin: 11/13/18 16:44 Dose: 500 mls/hr Non-Formulary Medication (Aspirin [Aspirin]) 325 mg PO BID [facility] Non-Formulary Medication (Diltiazem Hcl [Diltiazem 12hr Er]) 120 mg PO DAILY [facility] Non-Formulary Medication (Fentanyl [Duragesic]) 25 mcg TD Q72H [facility] Last Admin: 11/13/18 18:58 Dose: Not Given Non-Formulary Medication (Fluoxetine [Prozac]) 10 mg PO DAILY [facility] Non-Formulary Medication (Fluticasone Propionate [Flonase]) 1 spray NASBOTH QPM [facility] Non-Formulary Medication (Melatonin [Melatonin]) 5 mg PO BEDTIME [facility] Non-Formulary Medication (Omeprazole [Omeprazole]) 20 mg PO ACBREAKFAST [facility] Non-Formulary Medication (Pindolol [Pindolol]) 10 mg PO BID [facility] Non-Formulary Medication (Ropinirole Hcl [Requip]) 0.25 mg PO DAILY [facility] Non-Formulary Medication (Simvastatin [Simvastatin]) 10 mg PO QPM [facility] Pindolol (Pindolol) 10 mg PO BID [facility] Last Admin: 11/15/18 09:00 Dose: 10 mg Ropinirole HCl (Requip) 0.25 mg PO BEDTIME [facility] Last Admin: 11/14/18 19:54 Dose: 0.25 mg Simvastatin (Zocor) 10 mg PO QPM [facility] Last Admin: 11/14/18 19:54 Dose: 10 mg Sodium Chloride (Saline Flush) 10 ml FLUSH ASDIRECTED PRN PRN Reason: Keep Vein Open - Exam General: Alert, Cooperative, No Acute Distress HEENT: Pupils Equal, Pupils Reactive, EOMI Neck: Supple Lungs: Clear to Auscultation, Normal Respiratory Effort Cardiovascular: Regular Rate, Regular Rhythm GI/Abdominal Exam: Normal Bowel Sounds Extremities: Normal Inspection Peripheral Pulses: 2+: Dorsalis Pedis (L), Dorsalis Pedis (R) Skin: Warm, Dry, Intact Neurological: No New Focal Deficit Psy/Mental Status: Alert, Normal Affect, Normal Mood, Hallucinations - Problem List & Annotations (1) Weakness SNOMED Code(s): 48915496 Code(s): R53.1 - WEAKNESS Status: Acute Current Visit: Yes (2) Confusion SNOMED Code(s): 889521251 Code(s): R41.0 - DISORIENTATION, UNSPECIFIED Status: Acute Current Visit : Yes (3) Hallucinations SNOMED Code(s): 5485063 Code(s): R44.3 - HALLUCINATIONS, UNSPECIFIED Status: Acute Current Visit : Yes (4) Shoulder pain, right SNOMED Code(s): 03601024, 83113087 Code(s): M25.511 - PAIN IN RIGHT SHOULDER Status: Acute Current Visit: Yes - Problem List Review Problem List Initiated/Reviewed/Updated: Yes - Plan Plan:: Patient admitted for treatment of hallucinations, PT/OT strengthening and evaluation/management. We will consult for further placement as well. Patient will be increased to Seroquel BID for treatment of hallucinations. Patient would like to try to alleviate all hallucinations if possible. Patient to be monitored for any other symptoms and recheck in am.
[2018-11-18] MEDS: Simvastatin 10 MG Tab PO SCH (20:24)
[2018-11-18] MEDS: MELATONIN 5 MG PO SCH (22:01)
[2018-11-18] MEDS: rOPINIRole 0.25 MG Tab PO SCH (22:02)
[2018-11-18] MEDS: QUEtiapine 25 MG Tab PO SCH (22:02)
[2018-11-18] MEDS: diphenhydrAMINE 25 MG Cap PO PRN (22:06)
[2018-11-19] MEDS: Omeprazole 20 MG Cap.CR PO SCH (08:03)
[2018-11-19] MEDS: Diltiazem 120 MG Cap.CD PO SCH (08:03)
[2018-11-19] MEDS: FLUoxetine 10 MG Cap PO SCH (08:03)
[2018-11-19] MEDS: Multivitamins with Iron/Calcium/Folic Acid/Minerals Tab PO SCH (08:03)
[2018-11-19] MEDS: QUEtiapine 25 MG Tab PO SCH (08:03)
[2018-11-19] MEDS: Aspirin 325 MG Tab.EC PO SCH (08:03)
[2018-11-19 08:04] VITALS: BP 140/79
[2018-11-19] MEDS: Pindolol 10 MG Tab PO SCH (08:04)
--- NOTE | 2018-11-19 13:37 | PCM.DCSUM1 ---
Discharge Summary - Discharge Data Discharge Date: 11/19/18 Discharge Disposition: DC/Tfer W/I Hosp To [facility] Condition: Good - Discharge Diagnosis/Problem(s) (1) Weakness SNOMED Code(s): 14265405 ICD Code: R53.1 - WEAKNESS Status: Acute Current Visit: Yes (2) Confusion SNOMED Code(s): 093448633 ICD Code: R41.0 - DISORIENTATION, UNSPECIFIED Status: Acute Current Visit : Yes (3) Hallucinations SNOMED Code(s): 8610504 ICD Code: R44.3 - HALLUCINATIONS, UNSPECIFIED Status: Acute Current Visit : Yes (4) Shoulder pain, right SNOMED Code(s): 94760161, 73451395 ICD Code: M25.511 - PAIN IN RIGHT SHOULDER Status: Acute Current Visit: Yes - Patient Summary/Data Consults: Consultations 11/14/18 08:33 Consult to Occupational Therapy [OT Evaluation and Treatment] [CONS] Routine Please Evaluate and Treat. OT Reason for Consult: evaluate and treat Special Instructions: Mini mental and safety evaluation, strengthening and exercise This query below is only for informational purposes and is not editable. Admission Diagnosis/Problem: Shoulder pain 11/14/18 08:35 Consult to Physical Therapy [PT Evaluation and Treatment] [CONS] Routine Please Evaluate and Treat. PT Reason for Consult: evaluate and treat Special Instructions: strengthening and exercise This query below is only for informational purposes and is not editable. Admission Diagnosis/Problem: Shoulder pain 11/14/18 08:36 Consult to Case Management/Control Manager [CONS] Routine Comment: Physician Instructions: Service(s) to be Consulted: Control Manager Reason for Consult: assist with placement, discharge planning Case Management Specialty/Control Manager: Bank Vault Custodian Special Instructions: Hospital SW consult requested - Patient Instructions Diet: Usual Diet as Tolerated Activity: As Tolerated Driving: Do Not Drive - Discharge Plan *PRESCRIPTION DRUG MONITORING PROGRAM REVIEWED*: Not Applicable *COPY OF PRESCRIPTION DRUG MONITORING REPORT IN PATIENT EJ: Not Applicable Home Medications: Home Meds Omeprazole 20 mg PO ACBREAKFAST 04/23/13 [History] Pindolol 10 mg PO BID 04/23/13 [History] fentaNYL [Duragesic] 25 mcg TD Q72H 04/23/13 [History] FLUoxetine [PROzac] 10 mg PO BID 07/07/14 [History] Diltiazem HCl [Diltiazem 12Hr ER] 120 mg PO DAILY 11/04/18 [History] Melatonin 5 mg PO BEDTIME 11/04/18 [History] Simvastatin 10 mg PO QPM 11/04/18 [History] rOPINIRole HCl [Requip] 0.25 mg PO DAILY 11/04/18 [History] Fluticasone Propionate [Flonase] 1 spray NASBOTH QPM 11/13/18 [History] Mv-Min/Iron/Folic/Calcium/Vitk [Women's Multivitamin Tablet] 1 each PO DAILY [History] diphenhydrAMINE [Benadryl] 25 mg PO Q6H PRN 11/13/18 [History] Acetaminophen [Tylenol Arthritis] 650 mg PO Q4H PRN 11/18/18 [History] QUEtiapine Fumarate [Seroquel] 25 mg PO BEDTIME 11/18/18 [History] Sennosides/Docusate Sodium [Senna-Docusate Sodium Tablet] 1 each PO BEDTIME PRN 11/18/18 [History] Acetaminophen [Tylenol] 650 mg PO Q4H PRN tablet 11/19/18 [Rx] Aspirin [Ecotrin] 325 mg PO BID tab.ec 11/19/18 [Rx] QUEtiapine [SEROquel] 25 mg PO BID tablet 11/19/18 [Rx] Forms: ED Department Discharge Referrals: PCP,None [Primary Care Provider] - - Discharge Summary/Plan Comment DC Time >30 min.: Yes Discharge Summary/Plan Comment: Counseled on rehabilitation for weakness. Discussed close monitoring for Hallucinations and management. Patient will require placement as she is not safe for home. Continue current adjustment of Seroquel at 25mg bid and monitor for side effects. We will adjust accordingly. - Patient Data Vitals - Most Recent: Last Vital Signs Temp 36.6 C 11/19/18 08:00 Pulse 60 11/19/18 08:04 Resp 18 11/19/18 08:00 BP 140/79 11/19/18 08:04 Pulse Ox 100 11/19/18 08:00 Weight - Most Recent: 50.077 kg Med Orders - Current: Current Medications Acetaminophen (Tylenol) 650 mg PO Q4H PRN PRN Reason: Pain Last Admin: 11/18/18 22:05 Dose: 650 mg Aspirin (Ecotrin) 325 mg PO BID [facility] Last Admin: 11/19/18 08:03 Dose: 325 mg Diltiazem HCl (Cardizem Cd) 120 mg PO DAILY [facility] Last Admin: 11/19/18 08:03 Dose: 120 mg Diphenhydramine HCl (Benadryl) 25 mg PO Q6H PRN PRN Reason: Allergies Last Admin: 11/18/18 22:06 Dose: 25 mg Fentanyl (Duragesic) 25 mcg TRDERM Q72H [facility] Last Admin: 11/16/18 19:29 Dose: 25 mcg Fluoxetine HCl (Prozac) 10 mg PO DAILY [facility] Last Admin: 11/19/18 08:03 Dose: 10 mg Fluticasone Propionate (Flonase) 0 gm NASBOTH QPM [facility] Last Admin: 11/18/18 20:21 Dose: 1 spray Multivitamins/Minerals (Thera M Plus) 1 tab PO DAILY [facility] Last Admin: 11/19/18 08:03 Dose: 1 tab Omeprazole (Omeprazole) 20 mg PO ACBREAKFAST [facility] Last Admin: 11/19/18 08:03 Dose: 20 mg Melatonin 5mg Tab * (*Own Med) 0 each PO BEDTIME [facility] Last Admin: 11/18/18 22:01 Dose: 1 each Pindolol (Pindolol) 10 mg PO BID [facility] Last Admin: 11/19/18 08:04 Dose: 10 mg Quetiapine Fumarate (Seroquel) 25 mg PO BID [facility] Last Admin: 11/19/18 08:03 Dose: 25 mg Ropinirole HCl (Requip) 0.25 mg PO BEDTIME [facility] Last Admin: 11/18/18 22:02 Dose: 0.25 mg Senna/Docusate Sodium (Senna Plus) 1 tab PO BEDTIME PRN PRN Reason: Constipation Last Admin: 11/16/18 21:09 Dose: 1 tab Simvastatin (Zocor) 10 mg PO QPM [facility] Last Admin: 11/18/18 20:24 Dose: 10 mg Discontinued Medications Acetaminophen (Tylenol Extra Strength) Confirm Administered Dose 1,000 mg .ROUTE .STK-MED ONE Stop: 11/17/18 01:05 Last Admin: 11/17/18 07:04 Dose: Not Given Acetaminophen (Tylenol) 1,000 mg PO NOW ONE Stop: 04/28/19 01:01 Last Admin: 11/17/18 01:00 Dose: 1,000 mg Aspirin (Ecotrin) 325 mg PO BID [facility] Last Admin: 11/15/18 08:01 Dose: 325 mg Diltiazem HCl (Cardizem Cd) 120 mg PO DAILY [facility] Last Admin: 11/15/18 09:00 Dose: 120 mg Diphenhydramine HCl (Benadryl) 25 mg PO Q6H PRN PRN Reason: Allergies Last Admin: 11/13/18 23:48 Dose: 25 mg Fentanyl (Duragesic) 25 mcg TRDERM Q72H [facility] Last Admin: 11/13/18 18:41 Dose: 25 mcg Fluoxetine HCl (Prozac) 10 mg PO DAILY [facility] Last Admin: 11/15/18 08:02 Dose: 10 mg Fluticasone Propionate (Flonase) 0 gm NASBOTH QPM [facility] Last Admin: 11/14/18 19:52 Dose: 1 spray Sodium Chloride (Normal Saline) 1,000 mls @ 500 mls/hr IV ASDIRECTED [facility] Stop: 11/13/18 18:29 Last Admin: 11/13/18 16:44 Dose: 500 mls/hr Non-Formulary Medication (Aspirin [Aspirin]) 325 mg PO BID [facility] Non-Formulary Medication (Diltiazem Hcl [Diltiazem 12hr Er]) 120 mg PO DAILY [facility] Non-Formulary Medication (Fentanyl [Duragesic]) 25 mcg TD Q72H [facility] Last Admin: 11/13/18 18:58 Dose: Not Given Non-Formulary Medication (Fluoxetine [Prozac]) 10 mg PO DAILY [facility] Non-Formulary Medication (Fluticasone Propionate [Flonase]) 1 spray NASBOTH QPM [facility] Non-Formulary Medication (Melatonin [Melatonin]) 5 mg PO BEDTIME [facility] Non-Formulary Medication (Omeprazole [Omeprazole]) 20 mg PO ACBREAKFAST [facility] Non-Formulary Medication (Pindolol [Pindolol]) 10 mg PO BID [facility] Non-Formulary Medication (Ropinirole Hcl [Requip]) 0.25 mg PO DAILY [facility] Non-Formulary Medication (Simvastatin [Simvastatin]) 10 mg PO QPM [facility] Pindolol (Pindolol) 10 mg PO BID [facility] Last Admin: 11/15/18 09:00 Dose: 10 mg Quetiapine Fumarate (Seroquel) 25 mg PO BEDTIME [facility] Last Admin: 11/17/18 20:35 Dose: 25 mg Ropinirole HCl (Requip) 0.25 mg PO BEDTIME [facility] Last Admin: 11/14/18 19:54 Dose: 0.25 mg Simvastatin (Zocor) 10 mg PO QPM [facility] Last Admin: 11/14/18 19:54 Dose: 10 mg Sodium Chloride (Saline Flush) 10 ml FLUSH ASDIRECTED PRN PRN Reason: Keep Vein Open
== END 2018-11-19 13:36 | disposition swing bed (61) | DRG 880 ==
LOC: LB.ED 13:19 → LB.MS 15:30 → UNDOADMOB 15:30 → LB.MS 16:23 → OBSVTOIN 11-15 12:11
PROVIDERS: ADMIT Nurse Practitioner Family; ATTEND Nurse Practitioner Family
DX: R44.0 Auditory hallucinations (principal); R44.1 Visual hallucinations; R41.0 Disorientation, unspecified; R53.1 Weakness; M25.511 Pain in right shoulder; H54.7 Unspecified visual loss; E78.00 Pure hypercholesterolemia, unspecified; I10 Essential (primary) hypertension; I65.21 Occlusion and stenosis of right carotid artery; M54.9 Dorsalgia, unspecified; M19.90 Unspecified osteoarthritis, unspecified site; F32.9 Major depressive disorder, single episode, unspecified; G89.29 Other chronic pain; R51 Headache; F41.9 Anxiety disorder, unspecified; M54.2 Cervicalgia; T40.4X6A Underdosing of other synthetic narcotics, initial encounter; Z91.128 Patient's intentional underdosing of medication regimen for other reason; Z79.82 Long term (current) use of aspirin; Z88.0 Allergy status to penicillin; Z88.8 Allergy status to other drugs, medicaments and biological substances; Z86.73 Personal history of transient ischemic attack (TIA), and cerebral infarction without residual deficits; Z91.040 Latex allergy status; Z79.899 Other long term (current) drug therapy
CPT/HCPCS: 36415; 80053; 81001; 85025; 96360; 96361; 97110-GP; 97161-GP; 97165-GO; 97530-GO; 97530-GP; 97535-GO; 99284-25; A9270-GY; J7030

== ENCOUNTER 2018-11-18 13:18 | Inpatient (IN) | payer MEDICARE, MEDICAID ==
[2018-11-19] MEDS ORDERED: Tuberculin, PPD 5 Units/0.1 ML 1 ML MDV IDERM ONE (13:37)
[2018-11-19] MEDS ORDERED: Acetaminophen 650 MG Tab.ER PO PRN (13:38)
--- NOTE | 2018-11-19 13:44 | PCM.HP ---
H&P History of Present Illness - General Date of Service: 11/19/18 Admit Problem/Dx: Admission Diagnosis/Problem Admission Diagnosis/Problem Weakness Source of Information: Patient, Old Records, RN, RN Notes Reviewed History Limitations: Reports: No Limitations - History of Present Illness Initial Comments - Free Text/Narative: This is an 83yo F placed in swing bed for strengthening and hallucination management and care. She has had hallucinations for the past year but later corrected saying it has been present for the past month. She states the recent start of Seroquel has been helping a little. She does feel very weak but overall in good spirits without concerns. She has been to the ER and in the hospital multiple times for the same concerns as well as health concerns. There is concern that the patient is eating foods that are days old or longer (they have been sitting out on the counter for days). She is having difficulty doing the regular daily activities and will be evaluated further by PT/OT. Onset of Symptoms: Reports: Gradual Duration of Symptoms: Reports: Week(s):, Getting Worse Location: Reports: Generalized Right Shoulder Pain Score (Numeric/FACES): 6 - Related Data Allergies/Adverse Reactions: Allergies Allergy/AdvReac Type Severity Reaction Status Date / Time latex Allergy Unknown Hives Verified 11/18/18 14:57 Penicillins Allergy Cannot Verified 11/18/18 14:57 Remember meperidine HCl [From Demerol] AdvReac Nausea Verified 11/18/18 14:57 tramadol AdvReac Nausea and Verified 11/18/18 14:57 Vomiting Home Medications: Home Meds Omeprazole 20 mg PO ACBREAKFAST 04/23/13 [History] Pindolol 10 mg PO BID 04/23/13 [History] Diltiazem HCl [Diltiazem 12Hr ER] 120 mg PO DAILY 11/04/18 [History] Melatonin 5 mg PO BEDTIME 11/04/18 [History] Simvastatin 10 mg PO QPM 11/04/18 [History] rOPINIRole HCl [Requip] 0.25 mg PO DAILY 11/04/18 [History] Fluticasone Propionate [Flonase] 1 spray NASBOTH QPM 11/13/18 [History] Mv-Min/Iron/Folic/Calcium/Vitk [Women's Multivitamin Tablet] 1 each PO DAILY [History] diphenhydrAMINE [Benadryl] 25 mg PO Q6H PRN 11/13/18 [History] Sennosides/Docusate Sodium [Senna-Docusate Sodium Tablet] 1 each PO BEDTIME PRN 11/18/18 [History] Acetaminophen [Tylenol] 650 mg PO Q4H PRN tablet 11/19/18 [Rx] Aspirin [Ecotrin] 325 mg PO BID tab.ec 11/19/18 [Rx] Acetaminophen [Tylenol] 650 mg PO Q4H PRN tablet 11/27/18 [Rx] Aspirin [Ecotrin] 325 mg PO BID tab.ec 11/27/18 [Rx] FLUoxetine [PROzac] 10 mg PO DAILY #60 tablet 11/27/18 [Rx] QUEtiapine [SEROquel] 25 mg PO BID #120 tablet 11/27/18 [Rx] fentaNYL [Duragesic] 12 mcg TRDERM Q72H #10 patch 11/27/18 [Rx] rOPINIRole [Requip] 0.25 mg PO BEDTIME tablet 11/27/18 [Rx] Past Medical History HEENT History: Reports: Impaired Vision Cardiovascular History: Reports: High Cholesterol, Hypertension, Other (See Below) Other Cardiovascular History: Right carotid stenosis Musculoskeletal History: Reports: Back Pain, Chronic, Osteoarthritis Neurological History: Reports: Headaches, Chronic, Other (See Below) 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 Exam - Exam Exam: See Below - Exam General: Alert, Oriented, Cooperative HEENT: PERRLA, Conjunctiva Clear, EACs Clear, EOMI Neck: Supple, Trachea Midline Lungs: Clear to Auscultation, Normal Respiratory Effort Cardiovascular: Regular Rate, Regular Rhythm GI/Abdominal Exam: Normal Bowel Sounds Back Exam: Other (history of scoliosis and kyphosis) Extremities: Normal Inspection Skin: Warm, Dry, Intact Neuro Extensive - Mental Status: Alert, Oriented x3, Normal Mood/Affect, Normal Cognition, Memory Intact Neuro Extensive - Motor, Sensory, Reflexes: CN II-XII Intact, Normal Gait, Normal Reflexes Psychiatric: Hallucinations - Problem List (1) Confusion SNOMED Code(s): 343972175 ICD Code: R41.0 - DISORIENTATION, UNSPECIFIED Status: Suspected Priority : High (2) Hallucinations SNOMED Code(s): 3081106 ICD Code: R44.3 - HALLUCINATIONS, UNSPECIFIED Status: Acute Priority: High (3) Weakness SNOMED Code(s): 72851456 ICD Code: R53.1 - WEAKNESS Status: Chronic Priority: High Problem List Initiated/Reviewed/Updated: Yes Orders Last 24hrs: Active Orders 24 hr Category Date Time Status Patient Status [ADT] Routine ADT 11/19/18 13:37 Active Consult to Miller Apprentice [CONS] Routine Cons 11/19/18 13:37 Active Consult to Home Health [CONS] Routine Cons 11/19/18 13:37 Active Consult to Infection Prevention [CONS] Routine Cons 11/19/18 13:37 Active Consult to Wound Care Services [CONS] Routine Cons 11/19/18 13:37 Active OT Evaluation and Treatment [CONS] Routine Cons 11/19/18 13:37 Active PT Evaluation and Treatment [CONS] Routine Cons 11/19/18 13:37 Active Acetaminophen [Tylenol Arthritis Pain] Med 11/19/18 13:38 Ordered 650 mg PO Q4H PRN Diltiazem HCl [Diltiazem 12Hr ER] Med 11/20/18 08:00 Ordered 120 mg PO DAILY Docusate Sodium/Sennosides [Senna Plus] Med 11/19/18 13:38 Ordered DOSE tab PO BEDTIME PRN FLUoxetine [PROzac] Med 11/19/18 20:00 Ordered 10 mg PO BID Fluticasone Propionate [Flonase] Med 11/19/18 20:00 Ordered 1 spray NASBOTH QPM Melatonin [Melatonin] Med 11/19/18 20:00 Ordered 5 mg PO BEDTIME Mv-Min/Iron/Folic/Calcium/Vitk [Women's Multivitamin Med 11/20/18 08:00 Ordered Tablet] 1 each PO DAILY Omeprazole Med 11/20/18 07:00 Ordered 20 mg PO ACBREAKFAST Pindolol Med 11/19/18 20:00 Ordered 10 mg PO BID QUEtiapine [SEROquel] Med 11/19/18 20:00 Ordered 25 mg PO BID Simvastatin [Zocor] Med 11/19/18 20:00 Ordered 10 mg PO QPM Tuberculin, PPD [Aplisol] Med 11/19/18 13:37 Once 5 unit IDERM ONETIME ONE diphenhydrAMINE [Benadryl] Med 11/19/18 13:38 Ordered 25 mg PO Q6H PRN rOPINIRole [Requip] Med 11/20/18 08:00 Ordered 0.25 mg PO DAILY Medication Orders Acetaminophen (Tylenol Arthritis Pain) 650 mg PO Q4H PRN PRN Reason: Pain Diphenhydramine HCl (Benadryl) 25 mg PO Q6H PRN PRN Reason: Allergies Fluticasone Propionate (Flonase) gm NASBOTH QPM [facility] Non-Formulary Medication (Diltiazem Hcl [Diltiazem 12hr Er]) 120 mg PO DAILY [facility] Non-Formulary Medication (Fluoxetine [Prozac]) 10 mg PO BID [facility] Non-Formulary Medication (Melatonin [Melatonin]) 5 mg PO BEDTIME [facility] Non-Formulary Medication (Mv-Min/Iron/Folic/Calcium/Vitk [Women's Multivitamin Tablet]) 1 each PO DAILY [facility] Omeprazole (Omeprazole) 20 mg PO ACBREAKFAST [facility] Pindolol (Pindolol) 10 mg PO BID [facility] Senna/Docusate Sodium (Senna Plus) tab PO BEDTIME PRN PRN Reason: Constipation Tuberculin PPD (Aplisol) 5 unit IDERM ONETIME [facility] Stop: 11/19/18 13:38 Assessment/Plan Comment:: Patient to be admitted for swing bed admission and further close management of hallucinations and monitoring of symptoms. Patient will continue PT/OT as well. We will f/u medication dosing and effectiveness in the next few days.
[2018-11-19] MEDS ORDERED: MELATONIN 5 MG PO SCH (20:00)
[2018-11-19] MEDS: Melatonin 3 MG Tab PO SCH (20:57)
[2018-11-19] MEDS: Simvastatin 10 MG Tab PO SCH (20:58)
[2018-11-19] MEDS: Aspirin 325 MG Tab.EC PO SCH (20:58)
[2018-11-19] MEDS: QUEtiapine 25 MG Tab PO SCH (20:58)
[2018-11-19] MEDS: diphenhydrAMINE 25 MG Cap PO PRN (20:58)
[2018-11-19] MEDS: Fluticasone Propionate Nasal Spray 16 GM Bottle NASBOTH SCH (20:59)
[2018-11-19] MEDS: Pindolol 10 MG Tab PO SCH (21:00)
[2018-11-19] MEDS: fentaNYL 12 MCG/HR Transdermal Patch TRDERM SCH (21:19)
[2018-11-20] MEDS: Multivitamins with Iron/Calcium/Folic Acid/Minerals Tab PO SCH (07:43)
[2018-11-20] MEDS: Omeprazole 20 MG Cap.CR PO SCH (07:43)
[2018-11-20] MEDS: QUEtiapine 25 MG Tab PO SCH ×2 (07:43→20:55)
[2018-11-20] MEDS: Diltiazem 120 MG Cap.CD PO SCH (07:43)
[2018-11-20] MEDS: Pindolol 10 MG Tab PO SCH ×2 (07:44→20:58)
[2018-11-20] MEDS: Aspirin 325 MG Tab.EC PO SCH ×2 (07:44→20:56)
[2018-11-20] MEDS: FLUoxetine 10 MG Cap PO SCH (07:44)
[2018-11-20] MEDS ORDERED: rOPINIRole 0.25 MG Tab PO SCH ×2 (08:00→20:00)
[2018-11-20] MEDS: Melatonin 3 MG Tab PO SCH (20:55)
[2018-11-20] MEDS: Simvastatin 10 MG Tab PO SCH (20:55)
[2018-11-20] MEDS: rOPINIRole 0.25 MG Tab PO SCH (20:57)
[2018-11-20] MEDS: Fluticasone Propionate Nasal Spray 16 GM Bottle NASBOTH SCH (20:58)
[2018-11-21] MEDS: Aspirin 325 MG Tab.EC PO SCH ×2 (09:20→21:34)
[2018-11-21] MEDS: Multivitamins with Iron/Calcium/Folic Acid/Minerals Tab PO SCH (09:20)
[2018-11-21] MEDS: Omeprazole 20 MG Cap.CR PO SCH (09:20)
[2018-11-21] MEDS: QUEtiapine 25 MG Tab PO SCH ×2 (09:21→21:35)
[2018-11-21] MEDS: FLUoxetine 10 MG Cap PO SCH (09:21)
[2018-11-21] MEDS: Diltiazem 120 MG Cap.CD PO SCH (09:21)
[2018-11-21] MEDS: Pindolol 10 MG Tab PO SCH ×2 (09:24→21:35)
[2018-11-21] MEDS ORDERED: Acetaminophen 325 MG Tab PO PRN (09:40)
[2018-11-21] MEDS ORDERED: Aspirin 325 MG Tab.EC PO SCH (20:00)
[2018-11-21] MEDS: Acetaminophen 325 MG Tab PO PRN (21:33)
[2018-11-21] MEDS: Simvastatin 10 MG Tab PO SCH (21:34)
[2018-11-21] MEDS: Melatonin 3 MG Tab PO SCH (21:34)
[2018-11-21] MEDS: rOPINIRole 0.25 MG Tab PO SCH (21:34)
[2018-11-21] MEDS: Fluticasone Propionate Nasal Spray 16 GM Bottle NASBOTH SCH (21:34)
[2018-11-22] MEDS: Omeprazole 20 MG Cap.CR PO SCH (06:21)
[2018-11-22] MEDS: Diltiazem 120 MG Cap.CD PO SCH (07:24)
[2018-11-22] MEDS: Pindolol 10 MG Tab PO SCH ×2 (07:24→23:16)
[2018-11-22] MEDS: Aspirin 325 MG Tab.EC PO SCH ×2 (07:24→23:06)
[2018-11-22] MEDS: QUEtiapine 25 MG Tab PO SCH ×2 (07:25→23:05)
[2018-11-22] MEDS: Multivitamins with Iron/Calcium/Folic Acid/Minerals Tab PO SCH (07:25)
[2018-11-22] MEDS: FLUoxetine 10 MG Cap PO SCH (07:27)
[2018-11-22] MEDS: Acetaminophen 325 MG Tab PO PRN (12:50)
[2018-11-22] MEDS: Melatonin 3 MG Tab PO SCH (23:05)
[2018-11-22] MEDS: rOPINIRole 0.25 MG Tab PO SCH (23:06)
[2018-11-22] MEDS: Simvastatin 10 MG Tab PO SCH (23:06)
[2018-11-22] MEDS: Fluticasone Propionate Nasal Spray 16 GM Bottle NASBOTH SCH (23:07)
[2018-11-22] MEDS: Remove Patch*FENTANYL TRDERM SCH (23:16)
[2018-11-22] MEDS: fentaNYL 12 MCG/HR Transdermal Patch TRDERM SCH (23:17)
[2018-11-23] MEDS: Diltiazem 120 MG Cap.CD PO SCH (09:21)
[2018-11-23] MEDS: QUEtiapine 25 MG Tab PO SCH ×2 (09:22→22:09)
[2018-11-23] MEDS: Multivitamins with Iron/Calcium/Folic Acid/Minerals Tab PO SCH (09:22)
[2018-11-23] MEDS: Aspirin 325 MG Tab.EC PO SCH ×2 (09:23→22:07)
[2018-11-23] MEDS: FLUoxetine 10 MG Cap PO SCH (09:25)
[2018-11-23] MEDS: Pindolol 10 MG Tab PO SCH ×2 (09:28→22:08)
[2018-11-23] MEDS: Omeprazole 20 MG Cap.CR PO SCH (09:32)
--- NOTE | 2018-11-23 17:47 | PCM.SN ---
- Free Text/Narrative Note: Discussion with patient regarding care and safety. Patient adamantly refuses for consideration of care center. She also refuses consideration of assisted living. Discussed the benefits of both and that I do not feel that she is safe at home alone. Patient states she will try at home and then if she cannot do it then she will consider the assisted living center. Discussed in detail the options of care center and assisted living and safety. Patient understands the risks and continues to refuse going to the care center or assisted living.
[2018-11-23] MEDS: Acetaminophen 325 MG Tab PO PRN (19:29)
[2018-11-23] MEDS: rOPINIRole 0.25 MG Tab PO SCH (22:07)
[2018-11-23] MEDS: Simvastatin 10 MG Tab PO SCH (22:08)
[2018-11-23] MEDS: Melatonin 3 MG Tab PO SCH (22:09)
[2018-11-23] MEDS: Fluticasone Propionate Nasal Spray 16 GM Bottle NASBOTH SCH (22:14)
[2018-11-24] MEDS: Acetaminophen 325 MG Tab PO PRN ×2 (05:40→21:59)
[2018-11-24] MEDS: Omeprazole 20 MG Cap.CR PO SCH ×2 (05:41→07:00)
[2018-11-24] MEDS: Diltiazem 120 MG Cap.CD PO SCH (07:30)
[2018-11-24] MEDS: Aspirin 325 MG Tab.EC PO SCH ×2 (07:31→22:00)
[2018-11-24] MEDS: Pindolol 10 MG Tab PO SCH ×2 (07:31→22:01)
[2018-11-24] MEDS: FLUoxetine 10 MG Cap PO SCH (07:32)
[2018-11-24] MEDS: QUEtiapine 25 MG Tab PO SCH ×2 (07:32→21:59)
[2018-11-24] MEDS: Multivitamins with Iron/Calcium/Folic Acid/Minerals Tab PO SCH (07:33)
[2018-11-24] MEDS: Melatonin 3 MG Tab PO SCH (21:59)
[2018-11-24] MEDS: rOPINIRole 0.25 MG Tab PO SCH (21:59)
[2018-11-24] MEDS: Simvastatin 10 MG Tab PO SCH (21:59)
[2018-11-24] MEDS: Fluticasone Propionate Nasal Spray 16 GM Bottle NASBOTH SCH (22:00)
[2018-11-25] MEDS: Omeprazole 20 MG Cap.CR PO SCH (06:00)
[2018-11-25] MEDS: Pindolol 10 MG Tab PO SCH ×2 (07:33→20:04)
[2018-11-25] MEDS: QUEtiapine 25 MG Tab PO SCH ×2 (07:34→20:00)
[2018-11-25] MEDS: Aspirin 325 MG Tab.EC PO SCH ×2 (07:34→19:57)
[2018-11-25] MEDS: FLUoxetine 10 MG Cap PO SCH (07:34)
[2018-11-25] MEDS: Multivitamins with Iron/Calcium/Folic Acid/Minerals Tab PO SCH (07:34)
[2018-11-25] MEDS: Diltiazem 120 MG Cap.CD PO SCH (07:34)
[2018-11-25] MEDS: Acetaminophen 325 MG Tab PO PRN ×2 (07:36→19:58)
[2018-11-25] MEDS: Simvastatin 10 MG Tab PO SCH (19:58)
[2018-11-25] MEDS: rOPINIRole 0.25 MG Tab PO SCH (19:58)
[2018-11-25] MEDS: diphenhydrAMINE 25 MG Cap PO PRN (20:00)
[2018-11-25] MEDS: Melatonin 3 MG Tab PO SCH (20:00)
[2018-11-25] MEDS: Fluticasone Propionate Nasal Spray 16 GM Bottle NASBOTH SCH (20:02)
[2018-11-25] MEDS: Remove Patch*FENTANYL TRDERM SCH (20:03)
[2018-11-25] MEDS: fentaNYL 12 MCG/HR Transdermal Patch TRDERM SCH (20:07)
[2018-11-26] MEDS: Diltiazem 120 MG Cap.CD PO SCH (07:48)
[2018-11-26] MEDS: Omeprazole 20 MG Cap.CR PO SCH ×2 (07:53→19:45)
[2018-11-26] MEDS: Aspirin 325 MG Tab.EC PO SCH ×2 (07:54→20:55)
[2018-11-26] MEDS: Pindolol 10 MG Tab PO SCH ×2 (07:54→20:55)
[2018-11-26] MEDS: FLUoxetine 10 MG Cap PO SCH (07:55)
[2018-11-26] MEDS: Multivitamins with Iron/Calcium/Folic Acid/Minerals Tab PO SCH (07:55)
[2018-11-26] MEDS: QUEtiapine 25 MG Tab PO SCH ×2 (07:56→20:55)
[2018-11-26] MEDS: Acetaminophen 325 MG Tab PO PRN (16:39)
[2018-11-26] MEDS: Melatonin 3 MG Tab PO SCH (20:55)
[2018-11-26] MEDS: Simvastatin 10 MG Tab PO SCH (20:55)
[2018-11-26] MEDS: rOPINIRole 0.25 MG Tab PO SCH (20:56)
[2018-11-26] MEDS: Fluticasone Propionate Nasal Spray 16 GM Bottle NASBOTH SCH (20:56)
[2018-11-26] MEDS: diphenhydrAMINE 25 MG Cap PO PRN (23:45)
[2018-11-27] MEDS: Pindolol 10 MG Tab PO SCH (07:58)
[2018-11-27] MEDS: FLUoxetine 10 MG Cap PO SCH (07:59)
[2018-11-27] MEDS: Multivitamins with Iron/Calcium/Folic Acid/Minerals Tab PO SCH (07:59)
[2018-11-27] MEDS: QUEtiapine 25 MG Tab PO SCH (07:59)
[2018-11-27] MEDS: Omeprazole 20 MG Cap.CR PO SCH (07:59)
[2018-11-27] MEDS: Aspirin 325 MG Tab.EC PO SCH (07:59)
[2018-11-27] MEDS: Diltiazem 120 MG Cap.CD PO SCH (07:59)
[2018-11-27 08:01] VITALS: BP 161/82
--- NOTE | 2018-11-27 14:49 | PCM.DCSUM1 ---
Discharge Summary - Discharge Data Discharge Date: 11/27/18 Discharge Disposition: Home, Self-Care 01 Condition: Good - Discharge Diagnosis/Problem(s) (1) Confusion SNOMED Code(s): 712164690 ICD Code: R41.0 - DISORIENTATION, UNSPECIFIED Status: Suspected Priority : High (2) Hallucinations SNOMED Code(s): 6923445 ICD Code: R44.3 - HALLUCINATIONS, UNSPECIFIED Status: Acute Priority: High (3) Weakness SNOMED Code(s): 91301145 ICD Code: R53.1 - WEAKNESS Status: Chronic Priority: High - Patient Summary/Data Consults: Consultations 11/19/18 13:37 Consult to Technical Advisor [CONS] Routine Comment: Physician Instructions: Quantity: Consult to Home Health [CONS] Routine Comment: Physician Instructions: Consult to Infection Prevention [CONS] Routine Comment: Physician Instructions: Consult to Wound Care Services [CONS] Routine Comment: Physician Instructions: OT Evaluation and Treatment [CONS] Routine Please Evaluate and Treat. OT Reason for Consult: ADL's This query below is only for informational purposes and is not editable. Admission Diagnosis/Problem: Weakness PT Evaluation and Treatment [CONS] Routine Please Evaluate and Treat. PT Reason for Consult: Ambulation This query below is only for informational purposes and is not editable. Admission Diagnosis/Problem: Weakness - Patient Instructions Diet: Usual Diet as Tolerated Driving: Do Not Drive Showering/Bathing: May Shower - Discharge Plan Prescriptions/Med Rec: fentaNYL [Duragesic] 12 mcg TRDERM Q72H #10 patch FLUoxetine [PROzac] 10 mg PO DAILY #60 tablet QUEtiapine [SEROquel] 25 mg PO BID #120 tablet Home Medications: Home Meds Omeprazole 20 mg PO ACBREAKFAST 04/23/13 [History] Pindolol 10 mg PO BID 04/23/13 [History] Diltiazem HCl [Diltiazem 12Hr ER] 120 mg PO DAILY 11/04/18 [History] Melatonin 5 mg PO BEDTIME 11/04/18 [History] Simvastatin 10 mg PO QPM 11/04/18 [History] rOPINIRole HCl [Requip] 0.25 mg PO DAILY 11/04/18 [History] Fluticasone Propionate [Flonase] 1 spray NASBOTH QPM 11/13/18 [History] Mv-Min/Iron/Folic/Calcium/Vitk [Women's Multivitamin Tablet] 1 each PO DAILY [History] diphenhydrAMINE [Benadryl] 25 mg PO Q6H PRN 11/13/18 [History] Sennosides/Docusate Sodium [Senna-Docusate Sodium Tablet] 1 each PO BEDTIME PRN 11/18/18 [History] Acetaminophen [Tylenol] 650 mg PO Q4H PRN tablet 11/19/18 [Rx] Aspirin [Ecotrin] 325 mg PO BID tab.ec 11/19/18 [Rx] Acetaminophen [Tylenol] 650 mg PO Q4H PRN tablet 11/27/18 [Rx] Aspirin [Ecotrin] 325 mg PO BID tab.ec 11/27/18 [Rx] FLUoxetine [PROzac] 10 mg PO DAILY #60 tablet 11/27/18 [Rx] QUEtiapine [SEROquel] 25 mg PO BID #120 tablet 11/27/18 [Rx] fentaNYL [Duragesic] 12 mcg TRDERM Q72H #10 patch 11/27/18 [Rx] rOPINIRole [Requip] 0.25 mg PO BEDTIME tablet 11/27/18 [Rx] Patient Handouts: Fall Prevention in the Home, Adult, [id number], Quetiapine tablets, What You Need to Know About Personal Safety, Adult - Discharge Summary/Plan Comment DC Time >30 min.: Yes Discharge Summary/Plan Comment: Counseled on home care, discussion of care center vs assisted living. Patient refuses either and would only accept follow up from outreach and education social worker or home health for checks. She states if she is unable to care for herself again she will consider the care center. Patient follow up setup and f/u in clinic the next week. Patient has seen improvement with hallucinations both visual and auditory with the use of seroquel. She denies any side effects and agrees with continuing this medication. Patient Fentanyl adjusted to 12mcg daily. Patient to continue on prozac daily from BID. - Patient Data Vitals - Most Recent: Last Vital Signs Temp 36.9 C 11/27/18 08:00 Pulse 65 11/27/18 08:00 Resp 12 11/26/18 10:00 BP 161/82 H 11/27/18 08:00 Pulse Ox 98 11/27/18 08:00 Weight - Most Recent: 50.349 kg Med Orders - Current: Current Medications Discontinued Medications Acetaminophen (Tylenol Arthritis Pain) 650 mg PO Q4H PRN PRN Reason: Pain Acetaminophen (Tylenol) 650 mg PO Q4H PRN PRN Reason: Pain Last Admin: 11/26/18 16:39 Dose: 650 mg Acetaminophen (Tylenol) 650 mg PO Q4H PRN PRN Reason: Pain Aspirin (Ecotrin) 325 mg PO BID [facility] Last Admin: 11/27/18 07:59 Dose: 325 mg Aspirin (Ecotrin) 325 mg PO BID [facility] Diltiazem HCl (Cardizem Cd) 120 mg PO DAILY [facility] Last Admin: 11/27/18 07:59 Dose: 120 mg Diphenhydramine HCl (Benadryl) 25 mg PO Q6H PRN PRN Reason: Allergies Last Admin: 11/26/18 23:45 Dose: 25 mg Fentanyl (Duragesic) 12 mcg TRDERM Q72H [facility] Last Admin: 11/25/18 20:07 Dose: 12 mcg Fluoxetine HCl (Prozac) 10 mg PO DAILY [facility] Last Admin: 11/27/18 07:59 Dose: 10 mg Fluticasone Propionate (Flonase) 0 gm NASBOTH QPM [facility] Last Admin: 11/26/18 20:56 Dose: 1 spray Melatonin (Melatonin) 6 mg PO BEDTIME [facility] Last Admin: 11/26/18 20:55 Dose: 6 mg Miscellaneous Information (Remove Patch) 1 ea TRDERM Q72H [facility] Last Admin: 11/25/18 20:03 Dose: 1 ea Multivitamins/Minerals (Thera M Plus) 1 tab PO DAILY [facility] Last Admin: 11/27/18 07:59 Dose: 1 tab Melatonin 5 Mg (Own Med) 0 mg PO BEDTIME [facility] Omeprazole (Omeprazole) 20 mg PO ACBREAKFAST [facility] Last Admin: 11/27/18 07:59 Dose: 20 mg Pindolol (Pindolol) 10 mg PO BID [facility] Last Admin: 11/27/18 07:58 Dose: 10 mg Quetiapine Fumarate (Seroquel) 25 mg PO BID [facility] Last Admin: 11/27/18 07:59 Dose: 25 mg Ropinirole HCl (Requip) 0.25 mg PO BEDTIME [facility] Ropinirole HCl (Requip) 0.25 mg PO BEDTIME [facility] Last Admin: 11/26/18 20:56 Dose: 0.25 mg Senna/Docusate Sodium (Senna Plus) 1 tab PO BEDTIME PRN PRN Reason: Constipation Simvastatin (Zocor) 10 mg PO QPM [facility] Last Admin: 11/26/18 20:55 Dose: 10 mg Tuberculin PPD (Aplisol) 5 unit IDERM ONETIME ONE Stop: 11/19/18 13:38 Last Admin: 11/19/18 17:59 Dose: 5 unit Tuberculin PPD (Aplisol) 5 unit IDERM ONETIME ONE Stop: 12/03/18 13:11
[2018-12-03] MEDS ORDERED: Tuberculin, PPD 5 Units/0.1 ML 1 ML MDV IDERM ONE (13:10)
== END 2018-11-27 12:35 | disposition home or self-care (01) | DRG 948 ==
LOC: LB.MS 11-19 13:37
PROVIDERS: ADMIT Family Medicine; ATTEND Family Medicine
DX: R53.1 Weakness (principal); R44.0 Auditory hallucinations; Z66 Do not resuscitate; R44.1 Visual hallucinations; I10 Essential (primary) hypertension; R41.0 Disorientation, unspecified; T43.595D Adverse effect of other antipsychotics and neuroleptics, subsequent encounter; F32.9 Major depressive disorder, single episode, unspecified; M19.90 Unspecified osteoarthritis, unspecified site; M54.9 Dorsalgia, unspecified; G89.29 Other chronic pain; H54.7 Unspecified visual loss; Z79.82 Long term (current) use of aspirin; Z91.040 Latex allergy status; Z88.0 Allergy status to penicillin; Z88.8 Allergy status to other drugs, medicaments and biological substances; Z11.1 Encounter for screening for respiratory tuberculosis; R51 Headache
CPT/HCPCS: 86580; 97110-GP; 97116-GP; 97164-GP; 97530-GO; 97530-GP; 97535-GO; A9270-GY

== ENCOUNTER 2018-12-06 13:12 | Inpatient (IN) | payer MEDICARE, MEDICAID ==
--- NOTE | 2018-12-06 14:44 | EDM.PDOC ---
ED HPI GENERAL MEDICAL PROBLEM - General Time Seen by Provider: 12/06/18 13:45 Source of Information: Reports: Patient, Other (derrick worker well service and Home health nurse) History Limitations: Reports: No Limitations - History of Present Illness INITIAL COMMENTS - FREE TEXT/NARRATIVE: Pt is a 83 year old female who presents to the emergency room with her social service assistant and home health nurse. Apparently patient has been having hallucinations for past 2 months. Pt claims that there are several people that she can see in her room. The figures whisper and talk to each other, but she cannot understand them. It happens every day and all the time. Pt claims that they follow her to her doctors visits and also other places she visit. Sometimes she can hear the figures whisper behind her, and when she turns to see, there is no one there. Pt claims that they do not tell hurt to hurt herself or others. According to social service assistant. pt has been getting paranoid and wakes up at night and turns off the fire alarm. Also call police and wakes up other residents of the apparent. According to home health nurse, pt's home is a mess, there are things scattered everywhere in the house. Also patient is not eating well or cooking her meals. Appears to be very disorganized. Pt was seen for the same problem 2 wks ago and was started on seroquel 25mg BID , and the home health nurse claims that it has not made any difference in her behavior. And her hallucinations have been getting worse. Onset: Other Duration: Week(s): (2 months), Getting Worse Severity: Severe Improves with: Reports: None Worsens with: Reports: None Associated Symptoms: Denies: Confusion, Chest Pain, Cough, Diaphoresis, Fever/ Chills, Headaches, Loss of Appetite, Malaise, Nausea/Vomiting, Rash, Seizure, Shortness of Breath, Syncope, Weakness - Related Data Allergies Allergy/AdvReac Type Severity Reaction Status Date / Time latex Allergy Unknown Hives Verified 11/18/18 14:57 Penicillins Allergy Cannot Verified 11/18/18 14:57 Remember meperidine HCl [From Demerol] AdvReac Nausea Verified 11/18/18 14:57 tramadol AdvReac Nausea and Verified 11/18/18 14:57 Vomiting Home Meds: Home Meds Pindolol 10 mg PO BID 10/02/13 [History] Diltiazem HCl [Diltiazem 12Hr ER] 120 mg PO DAILY 11/04/18 [History] Fluticasone Propionate [Flonase] 1 spray NASBOTH QPM 11/13/18 [History] Mv-Min/Iron/Folic/Calcium/Vitk [Women's Multivitamin Tablet] 1 each PO DAILY [History] FLUoxetine [PROzac] 10 mg PO DAILY #60 tablet 11/27/18 [Rx] QUEtiapine [SEROquel] 25 mg PO BID #120 tablet 11/27/18 [Rx] rOPINIRole [Requip] 0.25 mg PO BEDTIME tablet 11/27/18 [Rx] Acetaminophen [Acetaminophen Extra Strength] 500 mg PO Q4HR PRN 12/06/18 [ History] Aspirin [Halfprin] 81 mg PO DAILY 12/06/18 [History] Cyanocobalamin (Vitamin B-12) [Vitamin B-12] 1,000 mcg PO DAILY 12/06/18 [ History] Melatonin 3 mg PO BEDTIME 12/06/18 [History] Omeprazole 20 mg PO DAILY PRN 12/06/18 [History] atorvaSTATin [Lipitor] 40 mg PO BEDTIME 12/06/18 [History] Past Medical History HEENT History: Reports: Impaired Vision Cardiovascular History: Reports: High Cholesterol, Hypertension, Other (See Below) Other Cardiovascular History: Right carotid stenosis Musculoskeletal History: Reports: Back Pain, Chronic, Osteoarthritis Neurological History: Reports: Headaches, Chronic, Other (See Below) 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 Psychiatric History: Reports: Depression - Past Surgical History HEENT Surgical History: Reports: Visual Other HEENT Surgeries/Procedures: wears glasses Neurological Surgical History: Reports: None Social & Family History - Family History Family Medical History: Noncontributory - Caffeine Use Caffeine Use: Reports: Coffee - Living Situation & Occupation Living situation: Reports: , Other Occupation: Retired ED ROS GENERAL - Review of Systems Review Of Systems: See Below Constitutional: Denies: Fever, Chills, Malaise, Weakness HEENT: Denies: Rhinitis, Throat Pain Respiratory: Denies: Cough, Sputum Cardiovascular: Denies: Chest Pain, Lightheadedness GI/Abdominal: Denies: Nausea, Vomiting : Denies: Dysuria, Frequency Musculoskeletal: Denies: Joint Pain, Joint Swelling Skin: Denies: Jaundice, Pruritis, Rash, Erythema Neurological: Denies: Confusion, Headache, Numbness, Tingling, Weakness Psychiatric: Reports: Depression, Hallucinations. Denies: Agitation, Anxiety, Confusion, Cravings, Homicidal Ideation, Suicidal Ideation ED EXAM, GENERAL - Physical Exam Exam: See Below Exam Limited By: No Limitations General Appearance: Alert, No Apparent Distress, Thin Eye Exam: Bilateral Eye: EOMI, PERRL Ears: Normal External Exam, Normal Canal, Hearing Grossly Normal, Normal TMs Ear Exam: Bilateral Ear: Auricle Normal, Canal Normal, TM normal Nose: Normal Inspection, Normal Mucosa, No Blood Throat/Mouth: Normal Inspection, Normal Lips, Normal Teeth, Normal Gums, Normal Oropharynx, Normal Voice, No Airway Compromise Head: Atraumatic, Normocephalic Neck: Normal Inspection, Supple, Non-Tender, Full Range of Motion Respiratory/Chest: No Respiratory Distress, Lungs Clear, Normal Breath Sounds, No Accessory Muscle Use, Chest Non-Tender Cardiovascular: Normal Peripheral Pulses, Regular Rate, Rhythm, No Edema, No Gallop, No JVD, No Murmur, No Rub Extremities: Normal Inspection, Normal Range of Motion, Non-Tender, Normal Capillary Refill, No Pedal Edema Neurological: Alert, Oriented, CN II-XII Intact, Normal Cognition, Normal Gait, Normal Reflexes, No Motor/Sensory Deficits Psychiatric: Normal Mood, Other (pt describes her visual and auditory episdoes very clearly in the emergency room.). No: Anxious, Depressed Mood, Flat Affect , Tearful Course - Vital Signs Text/Narrative:: 83 year old female who has had psychotic episodes with deterioration in her general conditions over the past 2 months. She has been having visual and auditory hallucinations. She has been very disorganized and shabby at home. Has been frequently calling the law enforcement and social service to help her. The symptoms have progressive got worse. Her CBC, CMP, TSH, UA and Urine drug screen are negative. CT head show age related white matter loss. I have contacted Dr. Ly( psychiatrist in [place]) and discussed with him. Pt needs inpatient care per him. Apparently we have tried calling [facility], [facility], [facility], [facility], [facility], [facility], [facility] and [facility]. Also the reports have been faxed to the facilities, we have not heard back form any of the facilities. I have discussed with Dr. Ly and his recommendation was to stop Seroquel and start her on Haldol 5mg twice daily for her hallucination. Plan is to admit patient for observation, and will continue to try for placement. Last Recorded V/S: Last Vital Signs Temp 98 F 12/06/18 14:51 Pulse 85 12/06/18 14:51 Resp 16 12/06/18 14:51 BP 149/82 H 12/06/18 14:51 Pulse Ox 100 12/06/18 14:51 - Orders/Labs/Meds Orders: Active Orders 24 hr Category Date Time Status Head wo Cont [CT] Stat Exams 12/06/18 14:42 Taken Labs: Laboratory Tests 12/06/18 12/06/18 12/06/18 Range/Units 14:12 14:20 14:20 WBC 8.3 D (4.0-11.0) K/uL RBC 4.40 (3.80-5.80) M/uL Hgb 12.9 (11.5-16.5) g/dL Hct 39.8 (37.0-47.0) % MCV 91 (76-96) fL MCH 29.3 (27.0-32.0) pg MCHC 32.4 (31.0-35.0) g/dL RDW 13.4 (11.0-16.0) % Plt Count 248 (150-500) K/uL MPV 9.7 (6.0-10.0) fL Neut % (Auto) 81.1 H (45.0-70.0) % Lymph % (Auto) 9.0 L (20.0-40.0) % [place] % (Auto) 8.0 (3.0-10.0) % Eos % (Auto) 1.4 (1.0-5.0) % Baso % (Auto) 0.5 (0.0-0.5) % Neut # (Auto) 6.73 (2.00-7.50) K/uL Lymph # (Auto) 0.75 L (1.50-4.00) K/uL [place] # (Auto) 0.66 (0.20-0.80) K/uL Eos # (Auto) 0.12 (0.04-0.40) K/uL Baso # (Auto) 0.04 (0.02-0.10) K/uL Sodium 139 (136-145) mmol/L Potassium 3.8 (3.5-5.1) mmol/L Chloride 103 (98-107) mmol/L Carbon Dioxide 27.3 (21.0-32.0) mmol/L Anion Gap 12.5 (5.0-15.0) mmol/L BUN 17 D (8-26) mg/dL Creatinine 0.53 L (0.55-1.02) mg/dL Est Cr Clr Drug Dosing TNP Estimated GFR (MDRD) > 60 (>60) MLS/MIN BUN/Creatinine Ratio 32.1 H (6-25) Glucose 97 D (74-100) mg/dL Calcium 8.3 L (8.5-10.1) mg/dL Total Bilirubin 0.7 (0.0-1.0) mg/dL AST 20 (15-37) U/L ALT 22 (12-78) U/L Alkaline Phosphatase 78 (46-116) U/L Total Protein 6.7 (6.4-8.2) g/dL Albumin 3.5 (3.4-5.0) g/dL Globulin 3.2 (2.2-4.2) g/dL Albumin/Globulin Ratio 1.1 (0.8-2.0) TSH, Ultra Sensitive (0.358-3.740) uIU/mL Urine Color Yellow Urine Appearance Clear (CLEAR) Urine pH 7.0 (5.0-8.0) Ur Specific [place] 1.015 (1.003-1.030) Urine Protein Negative (NEGATIVE) mg/dL Urine Glucose (UA) Negative (NEGATIVE) mg/dL Urine Ketones Negative (NEGATIVE) mg/dL Urine Occult Blood Negative (NEGATIVE) Urine Nitrite Negative (NEGATIVE) Urine Bilirubin Negative (NEGATIVE) Urine Urobilinogen 0.2 (0.2-1.0) E.U./dL Ur Leukocyte Esterase Negative (NEGATIVE) Urine RBC Not seen /HPF Urine WBC Not seen /HPF Ur Squamous Epith Cells Few /HPF Urine Opiates Screen (NEGATIVE) Ur Oxycodone Screen (NEGATIVE) Urine Methadone Screen (NEGATIVE) Ur Barbiturates Screen (NEGATIVE) Ur Tricyclics Screen (NEGATIVE) Ur Phencyclidine Scrn (NEGATIVE) Ur Amphetamine Screen (NEGATIVE) U Methamphetamines Scrn (NEGATIVE) Urine MDMA Screen (NEGATIVE) U Benzodiazepines Scrn (NEGATIVE) U Cocaine Metab Screen (NEGATIVE) U Marijuana (THC) Screen (NEGATIVE) 12/06/18 12/06/18 Range/Units 14:20 15:35 WBC (4.0-11.0) K/uL RBC (3.80-5.80) M/uL Hgb (11.5-16.5) g/dL Hct (37.0-47.0) % MCV (76-96) fL MCH (27.0-32.0) pg MCHC (31.0-35.0) g/dL RDW (11.0-16.0) % Plt Count (150-500) K/uL MPV (6.0-10.0) fL Neut % (Auto) (45.0-70.0) % Lymph % (Auto) (20.0-40.0) % [place] % (Auto) (3.0-10.0) % Eos % (Auto) (1.0-5.0) % Baso % (Auto) (0.0-0.5) % Neut # (Auto) (2.00-7.50) K/uL Lymph # (Auto) (1.50-4.00) K/uL [place] # (Auto) (0.20-0.80) K/uL Eos # (Auto) (0.04-0.40) K/uL Baso # (Auto) (0.02-0.10) K/uL Sodium (136-145) mmol/L Potassium (3.5-5.1) mmol/L Chloride (98-107) mmol/L Carbon Dioxide (21.0-32.0) mmol/L Anion Gap (5.0-15.0) mmol/L BUN (8-26) mg/dL Creatinine (0.55-1.02) mg/dL Est Cr Clr Drug Dosing Estimated GFR (MDRD) (>60) MLS/MIN BUN/Creatinine Ratio (6-25) Glucose (74-100) mg/dL Calcium (8.5-10.1) mg/dL Total Bilirubin (0.0-1.0) mg/dL AST (15-37) U/L ALT (12-78) U/L Alkaline Phosphatase (46-116) U/L Total Protein (6.4-8.2) g/dL Albumin (3.4-5.0) g/dL Globulin (2.2-4.2) g/dL Albumin/Globulin Ratio (0.8-2.0) TSH, Ultra Sensitive 1.000 (0.358-3.740) uIU/mL Urine Color Urine Appearance (CLEAR) Urine pH (5.0-8.0) Ur Specific [place] (1.003-1.030) Urine Protein (NEGATIVE) mg/dL Urine Glucose (UA) (NEGATIVE) mg/dL Urine Ketones (NEGATIVE) mg/dL Urine Occult Blood (NEGATIVE) Urine Nitrite (NEGATIVE) Urine Bilirubin (NEGATIVE) Urine Urobilinogen (0.2-1.0) E.U./dL Ur Leukocyte Esterase (NEGATIVE) Urine RBC /HPF Urine WBC /HPF Ur Squamous Epith Cells /HPF Urine Opiates Screen Negative (NEGATIVE) Ur Oxycodone Screen Negative (NEGATIVE) Urine Methadone Screen Negative (NEGATIVE) Ur Barbiturates Screen Negative (NEGATIVE) Ur Tricyclics Screen Negative (NEGATIVE) Ur Phencyclidine Scrn Negative (NEGATIVE) Ur Amphetamine Screen Negative (NEGATIVE) U Methamphetamines Scrn Negative (NEGATIVE) Urine MDMA Screen Negative (NEGATIVE) U Benzodiazepines Scrn Negative (NEGATIVE) U Cocaine Metab Screen Negative (NEGATIVE) U Marijuana (THC) Screen Negative (NEGATIVE) Departure - Departure Time of Disposition: 20:10 Disposition: Refer to Observation Condition: Fair Clinical Impression: Hallucinations - Discharge Information *PRESCRIPTION DRUG MONITORING PROGRAM REVIEWED*: Not Applicable *COPY OF PRESCRIPTION DRUG MONITORING REPORT IN PATIENT EJ: Not Applicable - Problem List & Annotations (1) Hallucinations SNOMED Code(s): 9949576 Code(s): R44.3 - HALLUCINATIONS, UNSPECIFIED Status: Acute Priority: High Current Visit: Yes - Problem List Review Problem List Initiated/Reviewed/Updated: Yes - My Orders Last 24 Hours: My Active Orders 12/06/18 14:42 Head wo Cont [CT] Stat - Assessment/Plan Last 24 Hours: My Active Orders 12/06/18 14:42 Head wo Cont [CT] Stat Assessment:: Hallucination visual and auditory Plan: 83 year old female who has had psychotic episodes with deterioration in her general conditions over the past 2 months. She has been having visual and auditory hallucinations. She has been very disorganized and shabby at home. Has been frequently calling the law enforcement and social service to help her. The symptoms have progressive got worse. Her CBC, CMP, TSH, UA and Urine drug screen are negative. CT head show age related white matter loss. I have contacted Dr. Ly( psychiatrist in [place]) and discussed with him. Pt needs inpatient care per him. Apparently we have tried calling [facility], [facility], [facility], [facility], [place], [facility], [facility] and [place]. Also the reports have been faxed to the facilities, we have not heard back form any of the facilities. I have discussed with Dr. Ly and his recommendation was to stop Seroquel and start her on Haldol 5mg twice daily for her hallucination. Plan is to admit patient for observation, and will continue to try for placement.
[2018-12-06] MEDS ORDERED: Omeprazole 20 MG Cap.CR PO PRN (20:49)
[2018-12-06] MEDS: Haloperidol 1 MG Tab PO SCH (21:47)
[2018-12-07] MEDS: Acetaminophen 500 MG Tab PO PRN (03:51)
[2018-12-07] MEDS ORDERED: Haloperidol 1 MG Tab PO SCH (08:00)
[2018-12-07] MEDS: FLUOXETINE 10 MG PO SCH (14:52)
[2018-12-07] MEDS: Cyanocobalamin (Vitamin B12) 1,000 MCG Tab PO SCH (14:52)
[2018-12-07] MEDS: DILTIAZEM HCL 120 MG PO SCH (14:52)
[2018-12-07] MEDS: Aspirin 81 MG Tab.EC PO SCH (14:54)
[2018-12-07] MEDS: IRON PO SCH (14:55)
[2018-12-07] MEDS: CALCIUM PO SCH (14:55)
[2018-12-07] MEDS: FOLIC PO SCH (14:55)
[2018-12-07] MEDS: VITK PO SCH (14:55)
[2018-12-07] MEDS: MV MIN PO SCH (14:55)
[2018-12-07] MEDS: [UNRECOGNIZED DRUG - OTHER] PO SCH (14:55)
[2018-12-07] MEDS: Pindolol 10 MG Tab PO SCH ×2 (14:57→21:43)
[2018-12-07] MEDS: Haloperidol 1 MG Tab PO SCH ×2 (15:00→21:37)
[2018-12-07] MEDS ORDERED: Haloperidol 0.5 MG Tab ONE ×2 (15:00→21:20)
[2018-12-07] MEDS: rOPINIRole 0.25 MG Tab PO SCH (21:37)
[2018-12-07] MEDS: atorvaSTATin 40 MG Tab PO SCH (21:42)
[2018-12-07] MEDS: Melatonin 3 MG Tab PO SCH (21:43)
[2018-12-07] MEDS: Fluticasone Propionate Nasal Spray 16 GM Bottle NASBOTH SCH (21:44)
[2018-12-08] MEDS: DILTIAZEM HCL 120 MG PO SCH (09:06)
[2018-12-08] MEDS: FLUOXETINE 10 MG PO SCH (09:06)
[2018-12-08] MEDS: VITK PO SCH (09:07)
[2018-12-08] MEDS: CALCIUM PO SCH (09:07)
[2018-12-08] MEDS: FOLIC PO SCH (09:07)
[2018-12-08] MEDS: IRON PO SCH (09:07)
[2018-12-08] MEDS: Aspirin 81 MG Tab.EC PO SCH (09:07)
[2018-12-08] MEDS: MV MIN PO SCH (09:07)
[2018-12-08] MEDS: [UNRECOGNIZED DRUG - OTHER] PO SCH (09:07)
[2018-12-08] MEDS: Pindolol 10 MG Tab PO SCH ×2 (09:08→20:52)
[2018-12-08] MEDS: Haloperidol 1 MG Tab PO SCH ×4 (09:13→20:52)
[2018-12-08] MEDS: Cyanocobalamin (Vitamin B12) 1,000 MCG Tab PO SCH (09:15)
[2018-12-08] MEDS: Acetaminophen 500 MG Tab PO PRN (09:16)
--- NOTE | 2018-12-08 10:46 | PCM.PN ---
- General Info Date of Service: 12/07/18 Subjective Update: Pt has been feeding well , has had one dose of haldol 5mg last evening. Pt is alert and oriented. Claims that she could not sleep last night at all. Was agitated. Pt still has been seeing figure in her room and they continue to whisper to her. Per staff, patient is very pleasant and does not get aggressive and agitation much. - Review of Systems General: Denies: Fever, Weakness HEENT: Denies: Sinus Congestion, Sore Throat Pulmonary: Denies: Sputum, Hemoptysis Cardiovascular: Denies: Chest Pain, Lightheadedness Gastrointestinal: Denies: Nausea, Vomiting Genitourinary: Denies: Burning, Urgency, Retention Musculoskeletal: Denies: Joint Pain, Joint Swelling Neurological: Denies: Confusion, Dizziness, Headache, Numbness, Tingling Psychiatric: Reports: Depression, Hallucinations. Denies: Confusion, Anxiety, Cravings, Suicidal Ideation - Patient Data Vitals - Most Recent: Last Vital Signs Temp 98.9 F 12/07/18 18:57 Pulse 72 12/08/18 09:08 Resp 17 12/07/18 18:57 BP 132/74 12/08/18 09:08 Pulse Ox 100 12/07/18 12:44 Weight - Most Recent: 51.71 kg Med Orders - Current: Current Medications Acetaminophen (Tylenol Extra Strength) 500 mg PO Q4HR PRN PRN Reason: Pain Last Admin: 12/08/18 09:16 Dose: 500 mg Aspirin (Halfprin) 81 mg PO DAILY [facility] Last Admin: 12/08/18 09:07 Dose: 81 mg Atorvastatin Calcium (Lipitor) 40 mg PO BEDTIME [facility] Last Admin: 12/07/18 21:42 Dose: 40 mg Cyanocobalamin (Vitamin B12) 1,000 mcg PO DAILY [facility] Last Admin: 12/08/18 09:15 Dose: 1,000 mcg Fluticasone Propionate (Flonase) 0 gm NASBOTH QPM [facility] Last Admin: 12/07/18 21:44 Dose: Not Given Haloperidol (Haldol) 5 mg PO Q12HR [facility] Last Admin: 12/08/18 09:13 Dose: 5 mg Melatonin (Melatonin) 3 mg PO BEDTIME [facility] Last Admin: 12/07/18 21:43 Dose: 3 mg Non-Formulary Medication (Diltiazem Hcl [Diltiazem 12hr Er]) 120 mg PO DAILY [facility] Last Admin: 12/08/18 09:06 Dose: 120 mg Non-Formulary Medication (Fluoxetine [Prozac]) 10 mg PO DAILY [facility] Last Admin: 12/08/18 09:06 Dose: 10 mg Non-Formulary Medication (Mv-Min/Iron/Folic/Calcium/Vitk [Women's Multivitamin Tablet]) 1 each PO DAILY [facility] Last Admin: 12/08/18 09:07 Dose: 1 each Omeprazole (Omeprazole) 20 mg PO DAILY PRN PRN Reason: Gas Pindolol (Pindolol) 10 mg PO BID [facility] Last Admin: 12/08/18 09:08 Dose: 10 mg Ropinirole HCl (Requip) 0.25 mg PO BEDTIME [facility] Last Admin: 12/07/18 21:37 Dose: 0.25 mg Discontinued Medications Haloperidol (Haldol) 5 mg PO Q12HR [facility] Haloperidol (Haldol) Confirm Administered Dose 5 mg .ROUTE .STK-MED ONE Stop: 12/07/18 15:01 Last Admin: 12/07/18 15:04 Dose: Not Given Haloperidol (Haldol) Confirm Administered Dose 5 mg .ROUTE .STK-MED ONE Stop: 12/07/18 21:21 Last Admin: 12/07/18 21:44 Dose: Not Given - Exam General: Alert, Oriented, Cooperative HEENT: Pupils Equal, Pupils Reactive, EOMI, Mucous Membr. Moist/[place] Neck: Supple Lungs: Clear to Auscultation, Normal Respiratory Effort Cardiovascular: Regular Rate, Regular Rhythm GI/Abdominal Exam: Normal Bowel Sounds, Soft, Non-Tender, No Organomegaly, No Distention, No Abnormal Bruit, No Mass, Pelvis Stable Neurological: No New Focal Deficit Psy/Mental Status: Alert, Normal Mood, Hallucinations. No: Anxious, Depressed, Suicidal Ideation, Homicidal Ideation - Problem List & Annotations (1) Hallucinations SNOMED Code(s): 5866566 Code(s): R44.3 - HALLUCINATIONS, UNSPECIFIED Status: Acute Priority: High Current Visit: Yes - Problem List Review Problem List Initiated/Reviewed/Updated: Yes - My Orders Last 24 Hours: My Active Orders 12/07/18 20:00 Fluticasone Propionate [Flonase] 0 gm NASBOTH QPM Melatonin 3 mg PO BEDTIME atorvaSTATin [Lipitor] 40 mg PO BEDTIME rOPINIRole [Requip] 0.25 mg PO BEDTIME - Assessment Assessment:: Visual and auditory hallucinations - Plan Plan:: Apparently pt has only had one dose of haldol now. Has not had any changes in her psychotic symptoms. Has not slept well. Has been feeding well. Very co- operative with staff. We have tried every possible psych facility in the area. Some facility do not accept geriatric patients, some place have no beds and some places ask for neuro evaluation. Will continue to monitor and try some more psych facilities . will continue to try for inpatient psych placement and continue haldol for now.
--- NOTE | 2018-12-08 10:55 | CRLCT ---
DATE OF SERVICE: 12/06/18 CLINICAL DATA: hallucinations UNENHANCED BRAIN CT: Multi slice acquisition through the brain without IV contrast was performed. Comparison is made to a prior exam dated 11/04/2018. There is diffuse cerebral atrophy. There are periventricular lucencies bilaterally, consistent with small vessel ischemic change. No masses or mass effect. No intracranial hemorrhage. No evidence of acute or subacute infarct. No change from the prior exam. IMPRESSION: No acute intracranial abnormalities. [id number] [facility]
--- NOTE | 2018-12-08 16:23 | PCM.PN ---
- General Info Date of Service: 12/08/18 Subjective Update: Pt claims she cannot sleep well at night. She blames it on her haldol. Pt claims she can still see the figure in her room, she points to them standing in group of 4 and whispering. She cannot understand what they say. She has been feeding well. No sedation from Haldol. No extrapyramidal symptoms noted. Functional Status: Reports: Tolerating Diet, Ambulating, Urinating - Review of Systems General: Denies: Weakness, Fatigue, Malaise HEENT: Denies: Ear Pain, Sore Throat Pulmonary: Denies: Cough, Sputum Cardiovascular: Denies: Chest Pain, Lightheadedness Gastrointestinal: Denies: Abdominal Pain, Nausea, Vomiting Genitourinary: Denies: Frequency, Urgency Musculoskeletal: Denies: Joint Pain, Joint Swelling Skin: Denies: Bruising, Pruritis, Rash Neurological: Denies: Confusion, Dizziness, Headache Psychiatric: Reports: Depression, Hallucinations. Denies: Confusion, Anxiety, Agitation, Cravings, Suicidal Ideation, Homicidal Ideation - Patient Data Vitals - Most Recent: Last Vital Signs Temp 98.1 F 12/08/18 12:00 Pulse 72 12/08/18 12:00 Resp 17 12/08/18 12:00 BP 132/74 12/08/18 12:00 Pulse Ox 100 12/08/18 12:00 Weight - Most Recent: 51.71 kg Bony Results Last 24 Hours: Microbiology 12/07/18 Unknown MRSA Surveillance Culture - Final Nose, Unspecified NO MRSA ISOLATED Med Orders - Current: Current Medications Acetaminophen (Tylenol Extra Strength) 500 mg PO Q4HR PRN PRN Reason: Pain Last Admin: 12/08/18 09:16 Dose: 500 mg Aspirin (Halfprin) 81 mg PO DAILY [facility] Last Admin: 12/08/18 09:07 Dose: 81 mg Atorvastatin Calcium (Lipitor) 40 mg PO BEDTIME [facility] Last Admin: 12/07/18 21:42 Dose: 40 mg Cyanocobalamin (Vitamin B12) 1,000 mcg PO DAILY [facility] Last Admin: 12/08/18 09:15 Dose: 1,000 mcg Fluticasone Propionate (Flonase) 0 gm NASBOTH QPM [facility] Last Admin: 12/07/18 21:44 Dose: Not Given Haloperidol (Haldol) 10 mg PO Q12HR [facility] Last Admin: 12/08/18 11:55 Dose: Not Given Melatonin (Melatonin) 3 mg PO BEDTIME [facility] Last Admin: 12/07/18 21:43 Dose: 3 mg Non-Formulary Medication (Diltiazem Hcl [Diltiazem 12hr Er]) 120 mg PO DAILY [facility] Last Admin: 12/08/18 09:06 Dose: 120 mg Non-Formulary Medication (Fluoxetine [Prozac]) 10 mg PO DAILY [facility] Last Admin: 12/08/18 09:06 Dose: 10 mg Non-Formulary Medication (Mv-Min/Iron/Folic/Calcium/Vitk [Women's Multivitamin Tablet]) 1 each PO DAILY [facility] Last Admin: 12/08/18 09:07 Dose: 1 each Omeprazole (Omeprazole) 20 mg PO DAILY PRN PRN Reason: Gas Pindolol (Pindolol) 10 mg PO BID [facility] Last Admin: 12/08/18 09:08 Dose: 10 mg Ropinirole HCl (Requip) 0.25 mg PO BEDTIME [facility] Last Admin: 12/07/18 21:37 Dose: 0.25 mg Discontinued Medications Haloperidol (Haldol) 5 mg PO Q12HR [facility] Haloperidol (Haldol) 5 mg PO Q12HR [facility] Last Admin: 12/08/18 11:00 Dose: 5 mg Haloperidol (Haldol) Confirm Administered Dose 5 mg .ROUTE .STK-MED ONE Stop: 12/07/18 15:01 Last Admin: 12/07/18 15:04 Dose: Not Given Haloperidol (Haldol) Confirm Administered Dose 5 mg .ROUTE .STK-MED ONE Stop: 12/07/18 21:21 Last Admin: 12/07/18 21:44 Dose: Not Given - Exam General: Alert, Oriented HEENT: Pupils Equal, Pupils Reactive, EOMI, Mucous Membr. Moist/[place] Neck: Supple Lungs: Clear to Auscultation, Normal Respiratory Effort Cardiovascular: Regular Rate, Regular Rhythm GI/Abdominal Exam: Normal Bowel Sounds, Soft, Non-Tender, No Organomegaly, No Distention, No Abnormal Bruit, No Mass, Pelvis Stable Psy/Mental Status: Alert, Normal Mood, Hallucinations. No: Anxious, Suicidal Ideation, Homicidal Ideation, Withdrawal Symptoms - Problem List & Annotations (1) Hallucinations SNOMED Code(s): 4121261 Code(s): R44.3 - HALLUCINATIONS, UNSPECIFIED Status: Acute Priority: High Current Visit: Yes - Problem List Review Problem List Initiated/Reviewed/Updated: Yes - My Orders Last 24 Hours: My Active Orders 12/07/18 20:00 Fluticasone Propionate [Flonase] 0 gm NASBOTH QPM Melatonin 3 mg PO BEDTIME atorvaSTATin [Lipitor] 40 mg PO BEDTIME rOPINIRole [Requip] 0.25 mg PO BEDTIME 12/08/18 10:00 Haloperidol [Haldol] 10 mg PO Q12HR - Assessment Assessment:: Visual and auditory hallucinations - Plan Plan:: Apparently pt has only had one dose of haldol now. Has not had any changes in her psychotic symptoms. Has not slept well. Has been feeding well. Very co- operative with staff. We have tried every possible psych facility in the area. Some facility do not accept geriatric patients, some place have no beds and some places ask for neuro evaluation. Will continue to monitor and try some more psych facilities . will continue to try for inpatient psych placement and continue haldol for now. 12/08/18 : pt hs been on 3 doses of haldol. She still claims has difficulty falling asleep. Still continues to have visual and auditory hallucinations. Have tried most of the inpatient psych facilities and not able to get patient in. I did contact Dr. Ly again, His recommendation was to increase Haldol to 10mg BID and monitor for extrapyramidal symptoms and also to keep the patient well hydrated. Dr. Ly will do telepsych consult tomorrow morning.
[2018-12-08] MEDS ORDERED: Haloperidol 0.5 MG Tab ONE (19:18)
[2018-12-08] MEDS: atorvaSTATin 40 MG Tab PO SCH (20:50)
[2018-12-08] MEDS: Melatonin 3 MG Tab PO SCH (20:52)
[2018-12-08] MEDS: rOPINIRole 0.25 MG Tab PO SCH (20:52)
[2018-12-08] MEDS: Fluticasone Propionate Nasal Spray 16 GM Bottle NASBOTH SCH (20:54)
[2018-12-09] MEDS: DILTIAZEM HCL 120 MG PO SCH (08:10)
[2018-12-09] MEDS: VITK PO SCH (08:11)
[2018-12-09] MEDS: IRON PO SCH (08:11)
[2018-12-09] MEDS: FLUOXETINE 10 MG PO SCH (08:11)
[2018-12-09] MEDS: [UNRECOGNIZED DRUG - OTHER] PO SCH (08:11)
[2018-12-09] MEDS: Aspirin 81 MG Tab.EC PO SCH (08:11)
[2018-12-09] MEDS: FOLIC PO SCH (08:11)
[2018-12-09] MEDS: MV MIN PO SCH (08:11)
[2018-12-09] MEDS: Pindolol 10 MG Tab PO SCH ×2 (08:11→20:16)
[2018-12-09] MEDS: CALCIUM PO SCH (08:11)
[2018-12-09] MEDS: Cyanocobalamin (Vitamin B12) 1,000 MCG Tab PO SCH (08:12)
[2018-12-09] MEDS: Haloperidol 1 MG Tab PO SCH ×2 (08:29→20:14)
--- NOTE | 2018-12-09 16:27 | PCM.PN ---
- General Info Date of Service: 12/09/18 Subjective Update: Pt has been slightly drowsy, but she ahs been arousable and also has been feeding well and answers verbal commands appropriately. Pt claims that she still has been seeing the figures in the room, but they do not talk much now and are just standing. Has been on haldol 10mg BID. Has been eating and drinking well.Pt did sleep well last night. Functional Status: Reports: Tolerating Diet, Ambulating, Urinating - Review of Systems General: Denies: Fever, Weakness HEENT: Denies: Headaches, Sore Throat, Rhinitis Pulmonary: Denies: Cough, Sputum Cardiovascular: Denies: Chest Pain, Lightheadedness Gastrointestinal: Denies: Abdominal Pain, Nausea, Vomiting Genitourinary: Denies: Frequency, Urgency, Retention Musculoskeletal: Denies: Joint Pain, Joint Swelling Neurological: Denies: Confusion, Dizziness, Headache Psychiatric: Reports: Hallucinations. Denies: Confusion, Depression, Mood Lability, Agitation, Suicidal Ideation - Patient Data Vitals - Most Recent: Last Vital Signs Temp 97.3 F 12/09/18 08:00 Pulse 73 12/09/18 08:11 Resp 18 12/09/18 08:00 BP 140/83 12/09/18 08:11 Pulse Ox 99 12/09/18 08:00 Weight - Most Recent: 52.06 kg Med Orders - Current: Current Medications Acetaminophen (Tylenol Extra Strength) 500 mg PO Q4HR PRN PRN Reason: Pain Last Admin: 12/08/18 09:16 Dose: 500 mg Aspirin (Halfprin) 81 mg PO DAILY REPLACED BY [facility] Last Admin: 12/09/18 08:11 Dose: 81 mg Atorvastatin Calcium (Lipitor) 40 mg PO BEDTIME REPLACED BY [facility] Last Admin: 12/08/18 20:50 Dose: 40 mg Cyanocobalamin (Vitamin B12) 1,000 mcg PO DAILY REPLACED BY [facility] Last Admin: 12/09/18 08:12 Dose: 1,000 mcg Fluticasone Propionate (Flonase) 0 gm NASBOTH QPM REPLACED BY [facility] Last Admin: 12/08/18 20:54 Dose: Not Given Haloperidol (Haldol) 5 mg PO QAM ONE Stop: 12/10/18 08:01 Melatonin (Melatonin) 3 mg PO BEDTIME REPLACED BY [facility] Last Admin: 12/08/18 20:52 Dose: 3 mg Non-Formulary Medication (Diltiazem Hcl [Diltiazem 12hr Er]) 120 mg PO DAILY REPLACED BY [facility] Last Admin: 12/09/18 08:10 Dose: 120 mg Non-Formulary Medication (Fluoxetine [Prozac]) 10 mg PO DAILY REPLACED BY [facility] Last Admin: 12/09/18 08:11 Dose: 10 mg Non-Formulary Medication (Mv-Min/Iron/Folic/Calcium/Vitk [Women's Multivitamin Tablet]) 1 each PO DAILY REPLACED BY [facility] Last Admin: 12/09/18 08:11 Dose: 1 each Haloperidol 5mg (Tablets) 2 each PO BID REPLACED BY [facility] Omeprazole (Omeprazole) 20 mg PO DAILY PRN PRN Reason: Gas Pindolol (Pindolol) 10 mg PO BID REPLACED BY [facility] Last Admin: 12/09/18 08:11 Dose: 10 mg Ropinirole HCl (Requip) 0.25 mg PO BEDTIME REPLACED BY [facility] Last Admin: 12/08/18 20:52 Dose: 0.25 mg Discontinued Medications Haloperidol (Haldol) 5 mg PO Q12HR REPLACED BY [facility] Haloperidol (Haldol) 5 mg PO Q12HR REPLACED BY [facility] Last Admin: 12/08/18 11:00 Dose: 5 mg Haloperidol (Haldol) Confirm Administered Dose 5 mg .ROUTE .STK-MED ONE Stop: 12/07/18 15:01 Last Admin: 12/07/18 15:04 Dose: Not Given Haloperidol (Haldol) Confirm Administered Dose 5 mg .ROUTE .STK-MED ONE Stop: 12/07/18 21:21 Last Admin: 12/07/18 21:44 Dose: Not Given Haloperidol (Haldol) 10 mg PO Q12HR REPLACED BY [facility] Last Admin: 12/09/18 08:29 Dose: 10 mg Haloperidol (Haldol) Confirm Administered Dose 10 mg .ROUTE .STK-MED ONE Stop: 12/08/18 19:19 Last Admin: 12/08/18 20:51 Dose: 10 mg - Exam General: Alert, Oriented HEENT: Pupils Equal, Pupils Reactive, EOMI, Mucous Membr. Moist/[place] Neck: Supple Lungs: Clear to Auscultation, Normal Respiratory Effort Cardiovascular: Regular Rate, Regular Rhythm Extremities: Normal Inspection, Normal Range of Motion, Non-Tender, No Pedal Edema, Normal Capillary Refill Neurological: No New Focal Deficit Psy/Mental Status: Alert, Normal Mood, Hallucinations. No: Depressed, Agitated , Suicidal Ideation, Homicidal Ideation - Problem List & Annotations (1) Hallucinations SNOMED Code(s): 5986443 Code(s): R44.3 - HALLUCINATIONS, UNSPECIFIED Status: Acute Priority: High Current Visit: Yes - Problem List Review Problem List Initiated/Reviewed/Updated: Yes - My Orders Last 24 Hours: My Active Orders 12/09/18 16:18 Patient Status [ADT] Routine 12/09/18 20:00 Haloperidol [Haldol] 15 mg PO BEDTIME Non-Formulary Medication [NF Drug] 2 each PO BID 12/10/18 08:00 Haloperidol [Haldol] 5 mg PO QAM ONE - Assessment Assessment:: Visual and auditory hallucinations - Plan Plan:: Apparently pt has only had one dose of haldol now. Has not had any changes in her psychotic symptoms. Has not slept well. Has been feeding well. Very co- operative with staff. We have tried every possible psych facility in the area. Some facility do not accept geriatric patients, some place have no beds and some places ask for neuro evaluation. Will continue to monitor and try some more psych facilities . will continue to try for inpatient psych placement and continue haldol for now. 12/08/18 : pt hs been on 3 doses of haldol. She still claims has difficulty falling asleep. Still continues to have visual and auditory hallucinations. Have tried most of the inpatient psych facilities and not able to get patient in. I did contact Dr. Ly again, His recommendation was to increase Haldol to 10mg BID and monitor for extrapyramidal symptoms and also to keep the patient well hydrated. Dr. Ly will do telepsych consult tomorrow morning. 12/09/18 Pt appears a little sedated today, but she has been eating her meals and also has shahla watching television. She still continue to have hallucination, but better. Pt did have Telepsych evaluation done by Dr. Ly. does feel Haldol is helping with her psychosis. Plan is to have Haldol 5mg in the morning and 15mg at bedtime starting tonight and monitor her behavior. His recommendation was to continue to find a inpatient psych facility to accept patient, meanwhile will try to manage her here until we have placement. will have consult this . I have changed patient to full admit. changed her Haldol dosing. Will reassess in am.
[2018-12-09] MEDS: HALOPERIDOL 5 MG PO SCH (20:14)
[2018-12-09] MEDS: Melatonin 3 MG Tab PO SCH (20:15)
[2018-12-09] MEDS: atorvaSTATin 40 MG Tab PO SCH (20:15)
[2018-12-09] MEDS: rOPINIRole 0.25 MG Tab PO SCH (20:16)
[2018-12-09] MEDS: Fluticasone Propionate Nasal Spray 16 GM Bottle NASBOTH SCH (20:19)
[2018-12-10] MEDS ORDERED: Haloperidol 1 MG Tab PO ONE (08:00)
[2018-12-10] MEDS: DILTIAZEM HCL 120 MG PO SCH (08:26)
[2018-12-10] MEDS: FLUOXETINE 10 MG PO SCH (08:27)
[2018-12-10] MEDS: Haloperidol 1 MG Tab PO SCH ×2 (08:27→20:57)
[2018-12-10] MEDS: FOLIC PO SCH (08:28)
[2018-12-10] MEDS: Cyanocobalamin (Vitamin B12) 1,000 MCG Tab PO SCH (08:28)
[2018-12-10] MEDS: IRON PO SCH (08:28)
[2018-12-10] MEDS: MV MIN PO SCH (08:28)
[2018-12-10] MEDS: Pindolol 10 MG Tab PO SCH ×2 (08:28→20:58)
[2018-12-10] MEDS: [UNRECOGNIZED DRUG - OTHER] PO SCH (08:28)
[2018-12-10] MEDS: VITK PO SCH (08:28)
[2018-12-10] MEDS: Aspirin 81 MG Tab.EC PO SCH (08:28)
[2018-12-10] MEDS: CALCIUM PO SCH (08:28)
[2018-12-10] MEDS: Fluticasone Propionate Nasal Spray 16 GM Bottle NASBOTH SCH (20:56)
[2018-12-10] MEDS: Melatonin 3 MG Tab PO SCH (20:56)
[2018-12-10] MEDS: atorvaSTATin 40 MG Tab PO SCH (20:57)
[2018-12-10] MEDS: rOPINIRole 0.25 MG Tab PO SCH (20:59)
--- NOTE | 2018-12-10 21:18 | PCM.PN ---
- General Info Date of Service: 12/10/18 Subjective Update: Pt did lseep well last . She is alert and oriented. answers questions appropriately. She claims that she still sees the figure but they dont whisper much. She does feels tired and sleepy. has been feeding well. Pt is on haldol 5mg in am and 15mg at bedtime. Functional Status: Reports: Tolerating Diet, Ambulating, Urinating - Review of Systems General: Denies: Fever, Weakness, Malaise HEENT: Denies: Sinus Congestion, Rhinitis Pulmonary: Denies: Sputum, Hemoptysis Cardiovascular: Denies: Chest Pain, Lightheadedness Gastrointestinal: Denies: Abdominal Pain, Nausea, Vomiting Genitourinary: Denies: Dysuria, Frequency Musculoskeletal: Denies: Joint Pain, Joint Swelling Skin: Denies: Bruising, Pruritis, Rash Neurological: Denies: Confusion, Dizziness, Headache, Numbness Psychiatric: Reports: Hallucinations. Denies: Confusion, Depression, Mood Lability, Suicidal Ideation - Patient Data Vitals - Most Recent: Last Vital Signs Temp 97.8 F 12/10/18 09:00 Pulse 70 12/10/18 20:58 Resp 18 12/10/18 09:00 BP 108/62 12/10/18 20:58 Pulse Ox 98 12/10/18 09:00 Weight - Most Recent: 52.163 kg Med Orders - Current: Current Medications Acetaminophen (Tylenol Extra Strength) 500 mg PO Q4HR PRN PRN Reason: Pain Last Admin: 12/08/18 09:16 Dose: 500 mg Aspirin (Halfprin) 81 mg PO DAILY [facility] Last Admin: 12/10/18 08:28 Dose: 81 mg Atorvastatin Calcium (Lipitor) 40 mg PO BEDTIME [facility] Last Admin: 12/10/18 20:57 Dose: 40 mg Cyanocobalamin (Vitamin B12) 1,000 mcg PO DAILY [facility] Last Admin: 12/10/18 08:28 Dose: 1,000 mcg Fluticasone Propionate (Flonase) 0 gm NASBOTH QPM [facility] Last Admin: 12/10/18 20:56 Dose: 1 spray Haloperidol (Haldol) 15 mg PO BEDTIME [facility] Last Admin: 12/10/18 20:57 Dose: 15 mg Haloperidol (Haldol) 5 mg PO QAM [facility] Last Admin: 12/10/18 08:27 Dose: 5 mg Melatonin (Melatonin) 3 mg PO BEDTIME [facility] Last Admin: 12/10/18 20:56 Dose: 3 mg Non-Formulary Medication (Diltiazem Hcl [Diltiazem 12hr Er]) 120 mg PO DAILY [facility] Last Admin: 12/10/18 08:26 Dose: 120 mg Non-Formulary Medication (Fluoxetine [Prozac]) 10 mg PO DAILY [facility] Last Admin: 12/10/18 08:27 Dose: 10 mg Non-Formulary Medication (Mv-Min/Iron/Folic/Calcium/Vitk [Women's Multivitamin Tablet]) 1 each PO DAILY [facility] Last Admin: 12/10/18 08:28 Dose: 1 each Omeprazole (Omeprazole) 20 mg PO DAILY PRN PRN Reason: Gas Pindolol (Pindolol) 10 mg PO BID [facility] Last Admin: 12/10/18 20:58 Dose: 10 mg Ropinirole HCl (Requip) 0.25 mg PO BEDTIME [facility] Last Admin: 12/10/18 20:59 Dose: 0.25 mg Discontinued Medications Haloperidol (Haldol) 5 mg PO Q12HR [facility] Haloperidol (Haldol) 5 mg PO Q12HR [facility] Last Admin: 12/08/18 11:00 Dose: 5 mg Haloperidol (Haldol) Confirm Administered Dose 5 mg .ROUTE .STK-MED ONE Stop: 12/07/18 15:01 Last Admin: 12/07/18 15:04 Dose: Not Given Haloperidol (Haldol) Confirm Administered Dose 5 mg .ROUTE .STK-MED ONE Stop: 12/07/18 21:21 Last Admin: 12/07/18 21:44 Dose: Not Given Haloperidol (Haldol) 10 mg PO Q12HR [facility] Last Admin: 12/09/18 08:29 Dose: 10 mg Haloperidol (Haldol) Confirm Administered Dose 10 mg .ROUTE .STK-MED ONE Stop: 12/08/18 19:19 Last Admin: 12/08/18 20:51 Dose: 10 mg Haloperidol (Haldol) 5 mg PO QAM ONE Stop: 12/10/18 08:01 Haloperidol 5mg (Tablets) 2 each PO BID [facility] Last Admin: 12/09/18 20:14 Dose: 2 each - Exam General: Alert, Oriented HEENT: Pupils Equal, Pupils Reactive, EOMI, Mucous Membr. Moist/[place] Neck: Supple Lungs: Clear to Auscultation, Normal Respiratory Effort Cardiovascular: Regular Rate, Regular Rhythm Extremities: Normal Inspection, Normal Range of Motion, Non-Tender, No Pedal Edema, Normal Capillary Refill Neurological: No New Focal Deficit Psy/Mental Status: Alert, Normal Mood, Hallucinations - Problem List & Annotations (1) Hallucinations SNOMED Code(s): 1556331 Code(s): R44.3 - HALLUCINATIONS, UNSPECIFIED Status: Acute Priority: High Current Visit: Yes - Problem List Review Problem List Initiated/Reviewed/Updated: Yes - My Orders Last 24 Hours: My Active Orders 12/10/18 08:00 Haloperidol [Haldol] 5 mg PO QAM - Assessment Assessment:: Visual and auditory hallucinations - Plan Plan:: Apparently pt has only had one dose of haldol now. Has not had any changes in her psychotic symptoms. Has not slept well. Has been feeding well. Very co- operative with staff. We have tried every possible psych facility in the area. Some facility do not accept geriatric patients, some place have no beds and some places ask for neuro evaluation. Will continue to monitor and try some more psych facilities . will continue to try for inpatient psych placement and continue haldol for now. 12/08/18 : pt hs been on 3 doses of haldol. She still claims has difficulty falling asleep. Still continues to have visual and auditory hallucinations. Have tried most of the inpatient psych facilities and not able to get patient in. I did contact Dr. Ly again, His recommendation was to increase Haldol to 10mg BID and monitor for extrapyramidal symptoms and also to keep the patient well hydrated. Dr. Ly will do telepsych consult tomorrow morning. 12/09/18 Pt appears a little sedated today, but she has been eating her meals and also has shahla watching television. She still continue to have hallucination, but better. Pt did have Telepsych evaluation done by Dr. Ly. does feel Haldol is helping with her psychosis. Plan is to have Haldol 5mg in the morning and 15mg at bedtime starting tonight and monitor her behavior. His recommendation was to continue to find a inpatient psych facility to accept patient, meanwhile will try to manage her here until we have placement. will have consult this . I have changed patient to full admit. changed her Haldol dosing. Will reassess in am. 12/10/18 Pt appears slightly sedated, but she is awake , has taken a walk and does feed herself. she still sees figures. But not bothering her . Pt is very coherent in her taught process and speech. I did go over patient recent lab work one at [facility]. She does have 99% right carotid stenosis, and has patent left carotid. She has been scheduled for right carotid endarterectomy. I am starting to think that her hallucinations might have some organic cause. This might be related to some ischemic changes from the decreased blood flow to the frontal lobe. This is my assumption, will discuss it with Dr. Gates in the morning and see if we can have the surgery scheduled with her on going hallucinations.
[2018-12-11] MEDS: Acetaminophen 500 MG Tab PO PRN (07:04)
--- NOTE | 2018-12-11 08:08 | CONS ---
DATE OF CONSULTATION: 12/09/2018 Site where the services are provided to are [facility] in [place], [place]. Site where the services are provided from, our offices in [facility]. Length of service for this 60-minute inpatient telemedicine event is 60 minutes. IDENTIFICATION: The patient is an 83-year-old female, who was admitted to the inpatient med/surg unit at [facility] in [place], [place]. She is seen for psychiatric evaluation per the request of staff attending, Dr. Doe, and his treatment team. CHIEF COMPLAINT: "They call it hallucinations. It was not getting any better. It was getting worse." HISTORY OF PRESENT ILLNESS: The patient is an 83-year-old female, who was admitted to the inpatient med/surg unit at [facility] in [place], [place], on December 06, 2018, secondary to increased hallucinations and paranoia that had been going on for 2 months. Evidently, the patient had been starting to see people in her house, and it was pretty disturbing for her to the point where she actually has not been able to care for herself effectively. She was brought in and treated and then discharged, but then she came in again this weekend and situation had deteriorated, and when staff had tried to find a bed for the patient for the purposes of transferring her to inpatient psychiatry, they were unsuccessful in this endeavor and, therefore, elected to admit the patient to the med/surg unit at their facility. On interview, the patient is alert and oriented x3, but she is endorsing visual and auditory hallucinations, as well as some tactile hallucinations where she was primarily "seeing people" who have been disturbing her at her house and now also a little bit at the hospital, noting "they are there", when I asked if they are at the hospital bothering her. She denies that she is suicidal or homicidal. She denies any illicit substance use or excessive alcohol abuse complicating her clinical picture. She denies any previous issues with these types of events prior to about 2 months ago, but she does note "I tend to worry over things" in general. She does endorse history of anxiety and has possible depression too. She does want these psychotic events to go away, and she reports that she would feel much better if that was the case, but again is ciera for safety while on the unit. She states she has been having trouble sleeping, but "once I get to sleep" the people that she sees generally leave her alone, but when she wakes up, "they are usually there" pretty quickly. She states that she had a stroke recently, and it is consistent with about the time she started having these events. Otherwise, she states she has been pretty healthy overall. MEDICATIONS AT THE TIME OF ADMISSION: Seroquel to help with the psychotic symptoms; however, this medication is ineffective apparently and so she was started on Haldol on admission and staff is reporting this medication seems to be having a somewhat positive effect as she is complaining less about the hallucinations as she has been on the unit and the Haldol has been raised, so she is currently at 10 mg b.i.d. after being started at 5 b.i.d. over the weekend. ALLERGIES: 1. LATEX. 2. PENICILLIN. 3. DEMEROL. 4. TRAMADOL. PAST MEDICAL HISTORY: 1. Status post stroke. 2. 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 REVIEW OF SYSTEMS: Aside from neuro and ocular, all other major organ systems are negative at this point in time for acute difficulties or complications. FAMILY PSYCHIATRIC AND CD HISTORY: The patient denies. PAST PSYCHIATRIC AND CD HISTORY: The patient denies any previous psychiatric hospitalizations or chemical dependency treatments. She denies any previous suicide attempts, self injurious behaviors, or eating disorder history. She does not report any previous psychiatric medication history prior to the Seroquel. SOCIAL HISTORY: The patient was born and raised in [place], [place]. She is the second of 4 siblings, having 3 other sisters, 2 of whom are . She lives by herself in an apartment in [place]. She had been x1 for about 59 years, but her back in 2012 secondary to liver cancer. The couple had no children. The patient has no biological children. 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 Again, she is living by herself in [place]. She does try to stay active, when she is feeling better, and will go out to such activities as Bible study, and she is an [employer] L[employer]. MENTAL STATUS EXAM: The patient is an 83-year-old, pleasant white female in no apparent distress. Speech is regular in rate and rhythm. The patient is cognitively oriented x3. Psychomotor activities are within normal limits. There are no abnormal motor movements or tics observed. Gait and station are not observed, as the patient is seated for the purposes of the inpatient psychiatric consultation. Mood is anxious and "worried" over the psychotic issues. Affect is cooperative overall for the purposes of the inpatient telemedicine event. There is no behavioral or stated evidence of acute suicidal or homicidal ideation. Thought processes are significant for visual hallucinations, [id number] auditory hallucinations, and tactile hallucinations, as well as paranoid themes. Thought processes are organized. There are no acute manic symptoms or loose associations evident. Judgment and insight do appear impaired secondary to the patient's frequency and intensity of the psychotic symptoms. Motivation for help is good. Vitals, 128/73, 66, 18, and 98 degrees. IMPRESSION: [place] I: 1. Psychosis, not otherwise specified, F29. 2. Rule out delusional disorder secondary to neurological event, such as the stroke the patient may have had a few months ago. [place] II: None. [place] III: 1. Status post stroke earlier in 2019. 2. Issues with vision in right eye. [place] IV: Severe. [place] V: 55. PLAN: 1. Discontinue Seroquel, as staff has already done, as this medication appears ineffective. 2. Would continue the Haldol and change dosing and time from 10 mg b.i.d. to 5 mg q.a.m. and 15 mg at bedtime to minimize daytime sedation, as the patient is complaining of a little bit of grogginess throughout the day at this point in time. 3. Pastoral guidance if this service is available at the facility, while the patient remains inpatient status. 4. Would recommend continuing the patient on inpatient status at this point in time, given the severity and frequency of her psychotic symptoms. The patient certainly meets the criteria for inpatient admission. I think it is justifiable to keep her on the inpatient status at the [facility] until her psychotic symptoms can resolve or would be much better controlled, especially as staff has tried to transfer this patient to inpatient psychiatric facilities, and there are no facilities that are available at this point in time. Also, it appears justifiable, as the patient is calm and cooperative and is not posing imminent danger to others or even to herself in the controlled setting. She is volunteering that she does want to get better; however, it would be unwise to discharge her back to the community at this point in time, given the severity, intensity, and frequency of her psychotic symptoms, which are preventing her from caring for herself in a private setting. 5. We will continue to follow up with the patient on an as-needed basis while she remains on the inpatient med/surg unit at [facility] in [place], [place]. 6. We will follow up with the patient sooner if there are any complications in the interim. 7. Crisis plan is in place. ELLIE/KAR /[id number]
[2018-12-11] MEDS ORDERED: Diltiazem 120 MG Cap.CD ONE (08:30)
[2018-12-11] MEDS: Pindolol 10 MG Tab PO SCH ×2 (08:36→22:06)
[2018-12-11] MEDS: Aspirin 81 MG Tab.EC PO SCH (08:36)
[2018-12-11] MEDS: Cyanocobalamin (Vitamin B12) 1,000 MCG Tab PO SCH (08:36)
[2018-12-11] MEDS: DILTIAZEM HCL 120 MG PO SCH (08:36)
[2018-12-11] MEDS: FLUOXETINE 10 MG PO SCH (08:37)
[2018-12-11] MEDS: FOLIC PO SCH (08:38)
[2018-12-11] MEDS: MV MIN PO SCH (08:38)
[2018-12-11] MEDS: CALCIUM PO SCH (08:38)
[2018-12-11] MEDS: VITK PO SCH (08:38)
[2018-12-11] MEDS: IRON PO SCH (08:38)
[2018-12-11] MEDS: [UNRECOGNIZED DRUG - OTHER] PO SCH (08:38)
[2018-12-11] MEDS: Haloperidol 1 MG Tab PO SCH (10:24)
--- NOTE | 2018-12-11 17:22 | PCM.PN ---
- General Info Date of Service: 12/11/18 Subjective Update: Pt is alert and claims that she has been tired today morning. Pt claims that feel sleepy. She still sees the figure, but calims they are quite. HAs been feeding well. Functional Status: Reports: Pain Controlled, Tolerating Diet, Ambulating, Urinating - Review of Systems General: Denies: Fever, Weakness HEENT: Denies: Headaches, Sinus Congestion Pulmonary: Denies: Shortness of Breath, Cough, Sputum Cardiovascular: Denies: Chest Pain, Palpitations Gastrointestinal: Denies: Abdominal Pain, Nausea, Vomiting Genitourinary: Denies: Dysuria, Burning Skin: Denies: Bruising, Pruritis, Rash Neurological: Denies: Dizziness, Headache, Numbness, Tingling Psychiatric: Reports: Hallucinations. Denies: Confusion, Depression, Suicidal Ideation - Patient Data Vitals - Most Recent: Last Vital Signs Temp 97.9 F 12/11/18 09:00 Pulse 79 12/11/18 09:00 Resp 16 12/11/18 09:00 BP 128/61 12/11/18 09:00 Pulse Ox 99 12/11/18 09:00 Weight - Most Recent: 52.163 kg Med Orders - Current: Current Medications Acetaminophen (Tylenol Extra Strength) 500 mg PO Q4HR PRN PRN Reason: Pain Last Admin: 12/11/18 07:04 Dose: 500 mg Aspirin (Halfprin) 81 mg PO DAILY [facility] Last Admin: 12/11/18 08:36 Dose: 81 mg Atorvastatin Calcium (Lipitor) 40 mg PO BEDTIME [facility] Last Admin: 12/10/18 20:57 Dose: 40 mg Cyanocobalamin (Vitamin B12) 1,000 mcg PO DAILY [facility] Last Admin: 12/11/18 08:36 Dose: 1,000 mcg Diltiazem HCl (Cardizem Cd) 120 mg PO DAILY [facility] Fluoxetine HCl (Prozac) 10 mg PO DAILY [facility] Fluticasone Propionate (Flonase) 0 gm NASBOTH QPM [facility] Last Admin: 12/10/18 20:56 Dose: 1 spray Melatonin (Melatonin) 3 mg PO BEDTIME [facility] Last Admin: 12/10/18 20:56 Dose: 3 mg Multivitamins/Minerals (Thera M Plus) 1 tab PO DAILY [facility] Halperidol 5mg (Tablets) 1 each PO DAILY [facility] Halperidol 5mg (Tablets) 3 each PO BEDTIME [facility] Omeprazole (Omeprazole) 20 mg PO DAILY PRN PRN Reason: Gas Pindolol (Pindolol) 10 mg PO BID [facility] Last Admin: 12/11/18 08:36 Dose: 10 mg Ropinirole HCl (Requip) 0.25 mg PO BEDTIME [facility] Last Admin: 12/10/18 20:59 Dose: 0.25 mg Discontinued Medications Diltiazem HCl (Cardizem Cd) Confirm Administered Dose 120 mg .ROUTE .[employer] ONE Stop: 12/11/18 08:31 Last Admin: 12/11/18 08:38 Dose: Not Given Haloperidol (Haldol) 5 mg PO Q12HR [facility] Haloperidol (Haldol) 5 mg PO Q12HR [facility] Last Admin: 12/08/18 11:00 Dose: 5 mg Haloperidol (Haldol) Confirm Administered Dose 5 mg .ROUTE .[employer] ONE Stop: 12/07/18 15:01 Last Admin: 12/07/18 15:04 Dose: Not Given Haloperidol (Haldol) Confirm Administered Dose 5 mg .ROUTE .[employer]-MED ONE Stop: 12/07/18 21:21 Last Admin: 12/07/18 21:44 Dose: Not Given Haloperidol (Haldol) 10 mg PO Q12HR [facility] Last Admin: 12/09/18 08:29 Dose: 10 mg Haloperidol (Haldol) Confirm Administered Dose 10 mg .ROUTE .[employer] ONE Stop: 12/08/18 19:19 Last Admin: 12/08/18 20:51 Dose: 10 mg Haloperidol (Haldol) 5 mg PO QAM ONE Stop: 12/10/18 08:01 Haloperidol (Haldol) 15 mg PO BEDTIME [facility] Last Admin: 12/10/18 20:57 Dose: 15 mg Haloperidol (Haldol) 5 mg PO QAM [facility] Last Admin: 12/11/18 10:24 Dose: Not Given Non-Formulary Medication (Diltiazem Hcl [Diltiazem 12hr Er]) 120 mg PO DAILY [facility] Last Admin: 12/11/18 08:36 Dose: 120 mg Non-Formulary Medication (Fluoxetine [Prozac]) 10 mg PO DAILY [facility] Last Admin: 12/11/18 08:37 Dose: 10 mg Non-Formulary Medication (Mv-Min/Iron/Folic/Calcium/Vitk [Women's Multivitamin Tablet]) 1 each PO DAILY [facility] Last Admin: 12/11/18 08:38 Dose: 1 each Haloperidol 5mg (Tablets) 2 each PO BID [facility] Last Admin: 12/09/18 20:14 Dose: 2 each - Exam General: Alert, Oriented HEENT: Pupils Equal, Pupils Reactive, EOMI, Mucous Membr. Moist/[place] Neck: Supple Lungs: Clear to Auscultation, Normal Respiratory Effort Cardiovascular: Regular Rate, Regular Rhythm Extremities: Normal Inspection, Normal Range of Motion, Non-Tender, No Pedal Edema, Normal Capillary Refill Skin: Warm, Intact Psy/Mental Status: Alert, Normal Mood, Hallucinations - Problem List & Annotations (1) Hallucinations SNOMED Code(s): 7857048 Code(s): R44.3 - HALLUCINATIONS, UNSPECIFIED Status: Acute Priority: High Current Visit: Yes - Problem List Review Problem List Initiated/Reviewed/Updated: Yes - My Orders Last 24 Hours: My Active Orders 12/11/18 20:00 Non-Formulary Medication [NF Drug] 3 each PO BEDTIME 12/12/18 08:00 Diltiazem [Cardizem CD] 120 mg PO DAILY FLUoxetine [PROzac] 10 mg PO DAILY Multivitamins w-Iron/Ca/FA/Min [Thera M Plus] 1 tab PO DAILY Non-Formulary Medication [NF Drug] 1 each PO DAILY - Assessment Assessment:: Visual and auditory hallucinations - Plan Plan:: Apparently pt has only had one dose of haldol now. Has not had any changes in her psychotic symptoms. Has not slept well. Has been feeding well. Very co- operative with staff. We have tried every possible psych facility in the area. Some facility do not accept geriatric patients, some place have no beds and some places ask for neuro evaluation. Will continue to monitor and try some more psych facilities . will continue to try for inpatient psych placement and continue haldol for now. 12/08/18 : pt hs been on 3 doses of haldol. She still claims has difficulty falling asleep. Still continues to have visual and auditory hallucinations. Have tried most of the inpatient psych facilities and not able to get patient in. I did contact Dr. Ly again, His recommendation was to increase Haldol to 10mg BID and monitor for extrapyramidal symptoms and also to keep the patient well hydrated. Dr. Ly will do telepsych consult tomorrow morning. 12/09/18 Pt appears a little sedated today, but she has been eating her meals and also has shahla watching television. She still continue to have hallucination, but better. Pt did have Telepsych evaluation done by Dr. Ly. does feel Haldol is helping with her psychosis. Plan is to have Haldol 5mg in the morning and 15mg at bedtime starting tonight and monitor her behavior. His recommendation was to continue to find a inpatient psych facility to accept patient, meanwhile will try to manage her here until we have placement. will have consult this . I have changed patient to full admit. changed her Haldol dosing. Will reassess in am. 12/10/18 Pt appears slightly sedated, but she is awake , has taken a walk and does feed herself. she still sees figures. But not bothering her . Pt is very coherent in her taught process and speech. I did go over patient recent lab work one at [facility]. She does have 99% right carotid stenosis, and has patent left carotid. She has been scheduled for right carotid endarterectomy. I am starting to think that her hallucinations might have some organic cause. This might be related to some ischemic changes from the decreased blood flow to the frontal lobe. This is my assumption, will discuss it with Dr. Gates in the morning and see if we can have the surgery scheduled with her on going hallucinations. 12/11/18 Pt appears stable. She si very groggy today morning. We did hold her morning dose. If she gets alert through the day and walk and improves will give her evening dose. I tired Dr. Gates, and left message for him. Will contact Dr. Rendon her surgeon in [place].
[2018-12-11] MEDS ORDERED: HALOPERIDOL 5 MG PO SCH (20:00)
[2018-12-11] MEDS: Melatonin 3 MG Tab PO SCH (22:06)
[2018-12-11] MEDS: rOPINIRole 0.25 MG Tab PO SCH (22:06)
[2018-12-11] MEDS: atorvaSTATin 40 MG Tab PO SCH (22:06)
[2018-12-11] MEDS: HALOPERIDOL 5 MG PO SCH (22:07)
[2018-12-11] MEDS: Fluticasone Propionate Nasal Spray 16 GM Bottle NASBOTH SCH (22:08)
[2018-12-12] MEDS: Acetaminophen 500 MG Tab PO PRN ×2 (03:51→21:10)
[2018-12-12] MEDS ORDERED: diphenhydrAMINE 25 MG Cap ONE (04:26)
[2018-12-12] MEDS: HALOPERIDOL 5 MG PO SCH ×3 (09:23→21:54)
[2018-12-12] MEDS: Cyanocobalamin (Vitamin B12) 1,000 MCG Tab PO SCH (09:31)
[2018-12-12] MEDS: Diltiazem 120 MG Cap.CD PO SCH (09:31)
[2018-12-12] MEDS: FLUoxetine 10 MG Cap PO SCH (09:31)
[2018-12-12] MEDS: Multivitamins with Iron/Calcium/Folic Acid/Minerals Tab PO SCH (09:31)
[2018-12-12] MEDS: Aspirin 81 MG Tab.EC PO SCH (09:31)
[2018-12-12] MEDS: Pindolol 10 MG Tab PO SCH ×2 (09:33→21:15)
--- NOTE | 2018-12-12 11:57 | PCM.PN ---
- General Info Date of Service: 12/12/18 Subjective Update: Pt is awake and alert, sitting at her bedside after breakfast. Pt claims that Haldol is making her have muscle stiffness. She prefers not to take Haldol as it has not been helping with her hallucinations. She claims she feels tired. No headache, no nausea. She still see figure in the room and claims they are 3 on them in the room. Functional Status: Reports: Pain Controlled, Tolerating Diet, Ambulating, Urinating - Review of Systems General: Reports: Weakness. Denies: Fever, Chills HEENT: Denies: Ear Pain, Sore Throat, Rhinitis Pulmonary: Denies: Shortness of Breath, Cough, Sputum, Hemoptysis Cardiovascular: Denies: Chest Pain, Lightheadedness Gastrointestinal: Denies: Abdominal Pain, Nausea, Vomiting Musculoskeletal: Denies: Joint Pain, Joint Swelling Skin: Denies: Bruising, Pruritis, Rash Neurological: Denies: Confusion, Dizziness, Headache, Numbness, Tingling Psychiatric: Reports: Hallucinations. Denies: Confusion, Depression, Suicidal Ideation - Patient Data Vitals - Most Recent: Last Vital Signs Temp 98.4 F 12/12/18 09:18 Pulse 73 12/12/18 09:33 Resp 16 12/12/18 09:18 BP 116/73 12/12/18 09:33 Pulse Ox 99 12/12/18 09:18 Weight - Most Recent: 52.163 kg I&O - Last 24 Hours: Intake & Output 12/11/18 12/12/18 12/12/18 22:59 06:59 14:59 Intake Total 350 Balance 350 Med Orders - Current: Current Medications Acetaminophen (Tylenol Extra Strength) 500 mg PO Q4HR PRN PRN Reason: Pain Last Admin: 12/12/18 03:51 Dose: 500 mg Aspirin (Halfprin) 81 mg PO DAILY [facility] Last Admin: 12/12/18 09:31 Dose: 81 mg Atorvastatin Calcium (Lipitor) 40 mg PO BEDTIME [facility] Last Admin: 12/11/18 22:06 Dose: 40 mg Cyanocobalamin (Vitamin B12) 1,000 mcg PO DAILY [facility] Last Admin: 12/12/18 09:31 Dose: 1,000 mcg Diltiazem HCl (Cardizem Cd) 120 mg PO DAILY [facility] Last Admin: 12/12/18 09:31 Dose: 120 mg Fluoxetine HCl (Prozac) 10 mg PO DAILY [facility] Last Admin: 12/12/18 09:31 Dose: 10 mg Fluticasone Propionate (Flonase) 0 gm NASBOTH QPM [facility] Last Admin: 12/11/18 22:08 Dose: 1 spray Haloperidol (Haldol) 5 mg PO BEDTIME [facility] Melatonin (Melatonin) 3 mg PO BEDTIME [facility] Last Admin: 12/11/18 22:06 Dose: 3 mg Multivitamins/Minerals (Thera M Plus) 1 tab PO DAILY [facility] Last Admin: 12/12/18 09:31 Dose: 1 tab Halperidol 5mg (Tablets) 1 each PO DAILY [facility] Last Admin: 12/12/18 09:23 Dose: Not Given Halperidol 5mg (Tablets) 3 each PO BEDTIME [facility] Last Admin: 12/11/18 23:32 Dose: Not Given Omeprazole (Omeprazole) 20 mg PO DAILY PRN PRN Reason: Gas Pindolol (Pindolol) 10 mg PO BID [facility] Last Admin: 12/12/18 09:33 Dose: 10 mg Ropinirole HCl (Requip) 0.25 mg PO BEDTIME [facility] Last Admin: 12/11/18 22:06 Dose: 0.25 mg Discontinued Medications Diltiazem HCl (Cardizem Cd) Confirm Administered Dose 120 mg .ROUTE .[employer] ONE Stop: 12/11/18 08:31 Last Admin: 12/11/18 08:38 Dose: Not Given Diphenhydramine HCl (Benadryl) Confirm Administered Dose 25 mg .ROUTE .[employer]-MED ONE Stop: 12/12/18 04:27 Last Admin: 12/12/18 04:30 Dose: 25 mg Haloperidol (Haldol) 5 mg PO Q12HR [facility] Haloperidol (Haldol) 5 mg PO Q12HR [facility] Last Admin: 12/08/18 11:00 Dose: 5 mg Haloperidol (Haldol) Confirm Administered Dose 5 mg .ROUTE .[employer] ONE Stop: 12/07/18 15:01 Last Admin: 12/07/18 15:04 Dose: Not Given Haloperidol (Haldol) Confirm Administered Dose 5 mg .ROUTE .[employer] ONE Stop: 12/07/18 21:21 Last Admin: 12/07/18 21:44 Dose: Not Given Haloperidol (Haldol) 10 mg PO Q12HR [facility] Last Admin: 12/09/18 08:29 Dose: 10 mg Haloperidol (Haldol) Confirm Administered Dose 10 mg .ROUTE .[employer]MED ONE Stop: 12/08/18 19:19 Last Admin: 12/08/18 20:51 Dose: 10 mg Haloperidol (Haldol) 5 mg PO QAM ONE Stop: 12/10/18 08:01 Haloperidol (Haldol) 15 mg PO BEDTIME [facility] Last Admin: 12/10/18 20:57 Dose: 15 mg Haloperidol (Haldol) 5 mg PO QAM [facility] Last Admin: 12/11/18 10:24 Dose: Not Given Non-Formulary Medication (Diltiazem Hcl [Diltiazem 12hr Er]) 120 mg PO DAILY [facility] Last Admin: 12/11/18 08:36 Dose: 120 mg Non-Formulary Medication (Fluoxetine [Prozac]) 10 mg PO DAILY [facility] Last Admin: 12/11/18 08:37 Dose: 10 mg Non-Formulary Medication (Mv-Min/Iron/Folic/Calcium/Vitk [Women's Multivitamin Tablet]) 1 each PO DAILY [facility] Last Admin: 12/11/18 08:38 Dose: 1 each Haloperidol 5mg (Tablets) 2 each PO BID [facility] Last Admin: 12/11/18 22:07 Dose: 2 each - Exam General: Alert, Oriented, Cooperative HEENT: Pupils Equal, Pupils Reactive, EOMI, Mucous Membr. Moist/[place] Neck: Supple Lungs: Clear to Auscultation, Normal Respiratory Effort Cardiovascular: Regular Rate, Regular Rhythm GI/Abdominal Exam: Normal Bowel Sounds, Soft, Non-Tender, No Organomegaly, No Distention, No Abnormal Bruit, No Mass, Pelvis Stable Extremities: Normal Inspection, Normal Range of Motion, Non-Tender, No Pedal Edema, Normal Capillary Refill Skin: Warm, Intact Psy/Mental Status: Alert, Hallucinations. No: Suicidal Ideation, Withdrawal Symptoms - Problem List & Annotations (1) Hallucinations SNOMED Code(s): 9977868 Code(s): R44.3 - HALLUCINATIONS, UNSPECIFIED Status: Acute Priority: High Current Visit: Yes - Problem List Review Problem List Initiated/Reviewed/Updated: Yes - My Orders Last 24 Hours: My Active Orders 12/11/18 20:00 Non-Formulary Medication [NF Drug] 3 each PO BEDTIME 12/12/18 08:00 Diltiazem [Cardizem CD] 120 mg PO DAILY FLUoxetine [PROzac] 10 mg PO DAILY Multivitamins w-Iron/Ca/FA/Min [Thera M Plus] 1 tab PO DAILY Non-Formulary Medication [NF Drug] 1 each PO DAILY 12/12/18 20:00 Haloperidol [Haldol] 5 mg PO BEDTIME - Assessment Assessment:: Visual and auditory hallucinations - Plan Plan:: Apparently pt has only had one dose of haldol now. Has not had any changes in her psychotic symptoms. Has not slept well. Has been feeding well. Very co- operative with staff. We have tried every possible psych facility in the area. Some facility do not accept geriatric patients, some place have no beds and some places ask for neuro evaluation. Will continue to monitor and try some more psych facilities . will continue to try for inpatient psych placement and continue haldol for now. 12/08/18 : pt hs been on 3 doses of haldol. She still claims has difficulty falling asleep. Still continues to have visual and auditory hallucinations. Have tried most of the inpatient psych facilities and not able to get patient in. I did contact Dr. Ly again, His recommendation was to increase Haldol to 10mg BID and monitor for extrapyramidal symptoms and also to keep the patient well hydrated. Dr. Ly will do telepsych consult tomorrow morning. 12/09/18 Pt appears a little sedated today, but she has been eating her meals and also has shahla watching television. She still continue to have hallucination, but better. Pt did have Telepsych evaluation done by Dr. Ly. does feel Haldol is helping with her psychosis. Plan is to have Haldol 5mg in the morning and 15mg at bedtime starting tonight and monitor her behavior. His recommendation was to continue to find a inpatient psych facility to accept patient, meanwhile will try to manage her here until we have placement. will have consult this . I have changed patient to full admit. changed her Haldol dosing. Will reassess in am. 12/10/18 Pt appears slightly sedated, but she is awake , has taken a walk and does feed herself. she still sees figures. But not bothering her . Pt is very coherent in her taught process and speech. I did go over patient recent lab work one at [facility]. She does have 99% right carotid stenosis, and has patent left carotid. She has been scheduled for right carotid endarterectomy. I am starting to think that her hallucinations might have some organic cause. This might be related to some ischemic changes from the decreased blood flow to the frontal lobe. This is my assumption, will discuss it with Dr. Gates in the morning and see if we can have the surgery scheduled with her on going hallucinations. 12/11/18 Pt appears stable. She si very groggy today morning. We did hold her morning dose. If she gets alert through the day and walk and improves will give her evening dose. I tired Dr. Gates, and left message for him. Will contact Dr. Rendon her surgeon in [place]. 12/12/18 Pt is alert and oriented times 3. She is concerned about Haldol, she claims it make her slow and also feel muscle stiffness. She still is able to go for walk. At this point she is on haldol 5mg BID.Pt is not interested in taking it any more as she feels it has not made big difference in her hallucinations. She prefers to go ahead with her right carotid endarterectomy. I have spoken to Dr. Gates last evening. today morning I have discussed patient with Dr. Rendon's nurse. Pt should be okay to go ahead with the surgery after discussion with his nurse Shahida. She has been scheduled for right Carotid end arterectomy on . Dr. Ly should be evaluating patient today. Also Dr. Ly will be communicating with Dr. Rendon. I do not see any contraindication for surgery, considering that pt's is very coherent and is not delusional in her taught. I do not think patient is safe to go home considering the input that was given from [facility] social media marketing specialist and her home health nurse.But she is not having delusional taughts, severe agitation or aggressive behavior pattern for the time I have evaluated patient, that would make it hard to have the surgical procedure done.
[2018-12-12] MEDS ORDERED: Haloperidol 0.5 MG Tab PO SCH (20:00)
[2018-12-12] MEDS: Melatonin 3 MG Tab PO SCH (21:10)
[2018-12-12] MEDS: atorvaSTATin 40 MG Tab PO SCH (21:10)
[2018-12-12] MEDS: rOPINIRole 0.25 MG Tab PO SCH (21:11)
[2018-12-12] MEDS: Fluticasone Propionate Nasal Spray 16 GM Bottle NASBOTH SCH (21:12)
[2018-12-13] MEDS: Diltiazem 120 MG Cap.CD PO SCH (07:57)
[2018-12-13] MEDS: Aspirin 81 MG Tab.EC PO SCH (07:58)
[2018-12-13] MEDS: Pindolol 10 MG Tab PO SCH (07:59)
[2018-12-13] MEDS: Cyanocobalamin (Vitamin B12) 1,000 MCG Tab PO SCH (07:59)
[2018-12-13] MEDS: FLUoxetine 10 MG Cap PO SCH (07:59)
[2018-12-13] MEDS: Multivitamins with Iron/Calcium/Folic Acid/Minerals Tab PO SCH (07:59)
[2018-12-13 08:00] VITALS: BP 138/71
[2018-12-13] MEDS: Acetaminophen 500 MG Tab PO PRN (08:18)
[2018-12-13] MEDS: HALOPERIDOL 5 MG PO SCH (08:24)
--- NOTE | 2018-12-13 18:06 | PCM.DCSUM1 ---
Discharge Summary - Hospital Course Free Text/Narrative:: Pt presented to emergency room on 12/06/18 with 2 months hisotry of hallucinations. Admitted for observation while waiting for inpatient psych care facilty acceptance. Daily progress and plan is as below: 12/07/18 Apparently pt has only had one dose of haldol now. Has not had any changes in her psychotic symptoms. Has not slept well. Has been feeding well. Very co- operative with staff. We have tried every possible psych facility in the area. Some facility do not accept geriatric patients, some place have no beds and some places ask for neuro evaluation. Will continue to monitor and try some more psych facilities . will continue to try for inpatient psych placement and continue haldol for now. 12/08/18 : pt hs been on 3 doses of haldol. She still claims has difficulty falling asleep. Still continues to have visual and auditory hallucinations. Have tried most of the inpatient psych facilities and not able to get patient in. I did contact Dr. Ly again, His recommendation was to increase Haldol to 10mg BID and monitor for extrapyramidal symptoms and also to keep the patient well hydrated. Dr. Ly will do telepsych consult tomorrow morning. 12/09/18 Pt appears a little sedated today, but she has been eating her meals and also has shahla watching television. She still continue to have hallucination, but better. Pt did have Telepsych evaluation done by Dr. Ly. does feel Haldol is helping with her psychosis. Plan is to have Haldol 5mg in the morning and 15mg at bedtime starting tonight and monitor her behavior. His recommendation was to continue to find a inpatient psych facility to accept patient, meanwhile will try to manage her here until we have placement. will have consult this . I have changed patient to full admit. changed her Haldol dosing. Will reassess in am. 12/10/18 Pt appears slightly sedated, but she is awake , has taken a walk and does feed herself. she still sees figures. But not bothering her . Pt is very coherent in her taught process and speech. I did go over patient recent lab work one at [facility]. She does have 99% right carotid stenosis, and has patent left carotid. She has been scheduled for right carotid endarterectomy. I am starting to think that her hallucinations might have some organic cause. This might be related to some ischemic changes from the decreased blood flow to the frontal lobe. This is my assumption, will discuss it with Dr. Gates in the morning and see if we can have the surgery scheduled with her on going hallucinations. 12/11/18 Pt appears stable. She si very groggy today morning. We did hold her morning dose. If she gets alert through the day and walk and improves will give her evening dose. I tired Dr. Gates, and left message for him. Will contact Dr. Rendon her surgeon in Am. 12/12/18 Pt is alert and oriented times 3. She is concerned about Haldol, she claims it make her slow and also feel muscle stiffness. She still is able to go for walk. At this point she is on haldol 5mg BID.Pt is not interested in taking it any more as she feels it has not made big difference in her hallucinations. She prefers to go ahead with her right carotid endarterectomy. I have spoken to Dr. Gates last evening. today morning I have discussed patient with Dr. Rendon's nurse. Pt should be okay to go ahead with the surgery after discussion with his nurse Shahida. She has been scheduled for right Carotid end arterectomy on . Dr. Ly should be evaluating patient today. Also Dr. Ly will be communicating with Dr. Rendon. I do not see any contraindication for surgery, considering that pt's is very coherent and is not delusional in her taught. I do not think patient is safe to go home considering the input that was given from the [facility] social services and her home health nurse.But she is not having delusional taughts, severe agitation or aggressive behavior pattern for the time I have evaluated patient, that would make it hard to have the surgical procedure done. 12/13/18 Pt still continues to see figures in her room. Pt refuses to take haldol as she feels it slows her down. Also she feels like it is not helping with her hallucinations. Plan per Dr. Rendon is to go ahead with surgery and patient is in agreement with it. So at this point, as we are really not doing any acute care here, hospital social services was consulted. The patient admission status has been changed to respite care today. Pt will be discharged on the day of right carotid endarterectomy, 12/18/18 to [facility]. Kindly use this discharge for respite care admission Brief History: Pt presented to [facility] room on 12/06/18 with visual and auditory hallucinations. Her ER workup was negative. She was admitted for observation,a s we could not get accepting psych facility. Kindly see H&P for details. Diagnosis: Stroke: No - Discharge Data Discharge Date: 12/13/18 Discharge Disposition: Home, Self-Care 01 Condition: Good - Discharge Diagnosis/Problem(s) (1) Hallucinations SNOMED Code(s): 0820755 ICD Code: R44.3 - HALLUCINATIONS, UNSPECIFIED Status: Acute Priority: High Current Visit: Yes - Patient Instructions Diet: Regular Diet as Tolerated Fluid Restriction: 1500 mL Activity: As Tolerated Showering/Bathing: May Shower - Discharge Plan *PRESCRIPTION DRUG MONITORING PROGRAM REVIEWED*: Not Applicable *COPY OF PRESCRIPTION DRUG MONITORING REPORT IN PATIENT EJ: Not Applicable Home Medications: Home Meds Pindolol 10 mg PO BID 04/23/13 [History] Diltiazem HCl [Diltiazem 12Hr ER] 120 mg PO DAILY 11/04/18 [History] Fluticasone Propionate [Flonase] 1 spray NASBOTH QPM 11/13/18 [History] Mv-Min/Iron/Folic/Calcium/Vitk [Women's Multivitamin Tablet] 1 each PO DAILY [History] FLUoxetine [PROzac] 10 mg PO DAILY #60 tablet 11/27/18 [Rx] rOPINIRole [Requip] 0.25 mg PO BEDTIME tablet 11/27/18 [Rx] Acetaminophen [Acetaminophen Extra Strength] 500 mg PO Q4HR PRN 12/06/18 [ History] Cyanocobalamin (Vitamin B-12) [Vitamin B-12] 1,000 mcg PO DAILY 12/06/18 [ History] Melatonin 3 mg PO BEDTIME 12/06/18 [History] Omeprazole 20 mg PO DAILY PRN 12/06/18 [History] atorvaSTATin [Lipitor] 40 mg PO BEDTIME 12/06/18 [History] Diltiazem [Cardizem CD] 120 mg PO DAILY cap.cd 12/13/18 [Rx] FLUoxetine [PROzac] 10 mg PO DAILY cap 12/13/18 [Rx] Non-Formulary Medication [NF Drug] 1 each PO BEDTIME each 12/13/18 [Rx] Referrals: PCP,None [Primary Care Provider] - - Discharge Summary/Plan Comment DC Time >30 min.: Yes - General Info Date of Service: 12/13/18 Subjective Update: Pt claims she is feeling fine. She still has been seeing figure in the room. She refuses to take haldol, as she feels it slows down her mind, but does not clear the figures in the room. She feels it is not helping. Functional Status: Reports: Tolerating Diet, Ambulating, Urinating - Review of Systems General: Denies: Fever, Weakness HEENT: Denies: Sore Throat Pulmonary: Denies: Cough, Sputum Cardiovascular: Denies: Chest Pain, Lightheadedness Gastrointestinal: Denies: Abdominal Pain, Nausea, Vomiting Genitourinary: Denies: Dysuria, Frequency Musculoskeletal: Denies: Joint Pain, Joint Swelling Skin: Denies: Bruising, Pruritis, Rash Neurological: Denies: Confusion, Dizziness, Headache, Numbness, Tingling Psychiatric: Reports: Hallucinations. Denies: Confusion, Depression, Anxiety, Suicidal Ideation - Patient Data Vitals - Most Recent: Last Vital Signs Temp 98.2 F 12/13/18 08:00 Pulse 76 12/13/18 08:00 Resp 18 12/13/18 08:00 BP 138/71 12/13/18 08:00 Pulse Ox 99 12/13/18 08:00 Weight - Most Recent: 52.163 kg Med Orders - Current: Current Medications Acetaminophen (Tylenol Extra Strength) 500 mg PO Q4HR PRN PRN Reason: Pain Last Admin: 12/13/18 08:18 Dose: 500 mg Aspirin (Halfprin) 81 mg PO DAILY [facility] Last Admin: 12/13/18 07:58 Dose: 81 mg Atorvastatin Calcium (Lipitor) 40 mg PO BEDTIME [facility] Last Admin: 12/12/18 21:10 Dose: 40 mg Cyanocobalamin (Vitamin B12) 1,000 mcg PO DAILY [facility] Last Admin: 12/13/18 07:59 Dose: 1,000 mcg Diltiazem HCl (Cardizem Cd) 120 mg PO DAILY [facility] Last Admin: 12/13/18 07:57 Dose: 120 mg Fluoxetine HCl (Prozac) 10 mg PO DAILY [facility] Last Admin: 12/13/18 07:59 Dose: 10 mg Fluticasone Propionate (Flonase) 0 gm NASBOTH QPM [facility] Last Admin: 12/12/18 21:12 Dose: 1 spray Melatonin (Melatonin) 3 mg PO BEDTIME [facility] Last Admin: 12/12/18 21:10 Dose: 3 mg Multivitamins/Minerals (Thera M Plus) 1 tab PO DAILY [facility] Last Admin: 12/13/18 07:59 Dose: 1 tab Halperidol 5mg (Tablets) 1 each PO DAILY [facility] Last Admin: 12/13/18 08:24 Dose: Not Given Halperidol 5mg (Tablets) 1 each PO BEDTIME [facility] Last Admin: 12/12/18 21:54 Dose: Not Given Omeprazole (Omeprazole) 20 mg PO DAILY PRN PRN Reason: Gas Pindolol (Pindolol) 10 mg PO BID [facility] Last Admin: 12/13/18 07:59 Dose: 10 mg Ropinirole HCl (Requip) 0.25 mg PO BEDTIME [facility] Last Admin: 12/12/18 21:11 Dose: 0.25 mg Discontinued Medications Diltiazem HCl (Cardizem Cd) Confirm Administered Dose 120 mg .ROUTE .STAsthmatracker-MED ONE Stop: 12/11/18 08:31 Last Admin: 12/11/18 08:38 Dose: Not Given Diphenhydramine HCl (Benadryl) Confirm Administered Dose 25 mg .ROUTE .STAsthmatracker-MED ONE Stop: 12/12/18 04:27 Last Admin: 12/12/18 04:30 Dose: 25 mg Haloperidol (Haldol) 5 mg PO Q12HR [facility] Haloperidol (Haldol) 5 mg PO Q12HR [facility] Last Admin: 12/08/18 11:00 Dose: 5 mg Haloperidol (Haldol) Confirm Administered Dose 5 mg .ROUTE .STAsthmatracker-MED ONE Stop: 12/07/18 15:01 Last Admin: 12/07/18 15:04 Dose: Not Given Haloperidol (Haldol) Confirm Administered Dose 5 mg .ROUTE .STAsthmatracker-MED ONE Stop: 12/07/18 21:21 Last Admin: 12/07/18 21:44 Dose: Not Given Haloperidol (Haldol) 10 mg PO Q12HR [facility] Last Admin: 12/09/18 08:29 Dose: 10 mg Haloperidol (Haldol) Confirm Administered Dose 10 mg .ROUTE .STK-MED ONE Stop: 12/08/18 19:19 Last Admin: 12/08/18 20:51 Dose: 10 mg Haloperidol (Haldol) 5 mg PO QAM ONE Stop: 12/10/18 08:01 Haloperidol (Haldol) 15 mg PO BEDTIME [facility] Last Admin: 12/10/18 20:57 Dose: 15 mg Haloperidol (Haldol) 5 mg PO QAM [facility] Last Admin: 12/11/18 10:24 Dose: Not Given Non-Formulary Medication (Diltiazem Hcl [Diltiazem 12hr Er]) 120 mg PO DAILY [facility] Last Admin: 12/11/18 08:36 Dose: 120 mg Non-Formulary Medication (Fluoxetine [Prozac]) 10 mg PO DAILY [facility] Last Admin: 12/11/18 08:37 Dose: 10 mg Non-Formulary Medication (Mv-Min/Iron/Folic/Calcium/Vitk [Women's Multivitamin Tablet]) 1 each PO DAILY [facility] Last Admin: 12/11/18 08:38 Dose: 1 each Haloperidol 5mg (Tablets) 2 each PO BID [facility] Last Admin: 12/11/18 22:07 Dose: 2 each Halperidol 5mg (Tablets) 3 each PO BEDTIME [facility] Last Admin: 12/11/18 23:32 Dose: Not Given - Exam General: Reports: Alert, Oriented HEENT: Reports: Pupils Equal, Pupils Reactive, EOMI, Mucous Membr. Moist/[place] Neck: Reports: Supple Lungs: Reports: Clear to Auscultation Cardiovascular: Reports: Regular Rate, Regular Rhythm GI/Abdominal Exam: Normal Bowel Sounds, Soft, Non-Tender, No Organomegaly, No Distention, No Abnormal Bruit, No Mass, Pelvis Stable Skin: Reports: Warm Psy/Mental Status: Reports: Alert, Normal Mood, Hallucinations. Denies: Depressed, Suicidal Ideation, Homicidal Ideation, Withdrawal Symptoms
== END 2018-12-13 19:00 | disposition other institution (70) | DRG 880 ==
LOC: LB.ED 13:12 → LB.MS 20:15 → OBSVTOIN 12-09 16:53
PROVIDERS: ADMIT Family Medicine; ATTEND Family Medicine
DX: R44.0 Auditory hallucinations (principal); F23 Brief psychotic disorder; R44.1 Visual hallucinations; I10 Essential (primary) hypertension; Z86.73 Personal history of transient ischemic attack (TIA), and cerebral infarction without residual deficits; I65.21 Occlusion and stenosis of right carotid artery; H54.7 Unspecified visual loss; E78.00 Pure hypercholesterolemia, unspecified; M54.9 Dorsalgia, unspecified; G89.29 Other chronic pain; F32.9 Major depressive disorder, single episode, unspecified; R51 Headache; Z79.82 Long term (current) use of aspirin; Z91.040 Latex allergy status; Z88.5 Allergy status to narcotic agent; Z88.0 Allergy status to penicillin; Z88.8 Allergy status to other drugs, medicaments and biological substances; Z59.1 Inadequate housing
CPT/HCPCS: 36415; 70450; 80053; 80307; 81001; 84443; 85025; 99285-25; A9270-GY; G0378

== ENCOUNTER 2018-12-13 11:27 | Inpatient (IN) | payer MEDICAID, MEDICARE, OTHER ==
[2018-12-13] MEDS ORDERED: Omeprazole 20 MG Cap.CR PO PRN (18:22)
[2018-12-13] MEDS ORDERED: Non-Formulary Medication 1 Each PO SCH (20:00)
[2018-12-13] MEDS ORDERED: Haloperidol 1 MG Tab PO SCH (20:00)
[2018-12-13] MEDS ORDERED: HALDOL 5 MG PO SCH (21:00)
[2018-12-13] MEDS: HALDOL 5 MG PO SCH (21:06)
[2018-12-13] MEDS: ROPINIROLE 0.25 MG PO SCH (21:13)
[2018-12-13] MEDS: atorvaSTATin 40 MG Tab**OWN MED PO SCH (21:14)
[2018-12-13] MEDS: PINDOLOL 10 MG PO SCH (21:14)
[2018-12-13] MEDS: Fluticasone Propionate Nasal Spray 16 GM Bottle**OWN MED NASBOTH SCH (21:17)
[2018-12-13] MEDS: Acetaminophen 500 MG Tab PO PRN (21:18)
[2018-12-13] MEDS: Melatonin 3 MG Tab PO SCH (21:18)
[2018-12-13] MEDS: diphenhydrAMINE 25 MG Cap PO PRN (22:37)
[2018-12-14] MEDS: Acetaminophen 500 MG Tab PO PRN ×4 (01:27→20:10)
[2018-12-14] MEDS ORDERED: DILTIAZEM HCL 120 MG PO SCH (08:00)
[2018-12-14] MEDS ORDERED: FLUOXETINE 10 MG PO SCH (08:00)
[2018-12-14] MEDS: PINDOLOL 10 MG PO SCH ×2 (08:22→22:24)
[2018-12-14] MEDS: DILTIAZEM 120 MG PO SCH (08:22)
[2018-12-14] MEDS: FLUOXETINE 10 MG PO SCH (08:23)
[2018-12-14] MEDS: Cyanocobalamin (Vitamin B12) 1,000 MCG Tab PO SCH (08:24)
[2018-12-14] MEDS: Multivitamins with Iron/Calcium/Folic Acid/Minerals Tab PO SCH (08:24)
[2018-12-14] MEDS: HALDOL 5 MG PO SCH ×2 (08:25→21:37)
[2018-12-14] MEDS: Fluticasone Propionate Nasal Spray 16 GM Bottle**OWN MED NASBOTH SCH (22:22)
[2018-12-14] MEDS: atorvaSTATin 40 MG Tab**OWN MED PO SCH (22:23)
[2018-12-14] MEDS: ROPINIROLE 0.25 MG PO SCH (22:23)
[2018-12-14] MEDS: Melatonin 3 MG Tab PO SCH (22:26)
[2018-12-15] MEDS: Acetaminophen 500 MG Tab PO PRN ×5 (02:09→22:18)
[2018-12-15] MEDS: HALDOL 5 MG PO SCH ×2 (08:07→22:11)
[2018-12-15] MEDS: FLUOXETINE 10 MG PO SCH (08:07)
[2018-12-15] MEDS: Cyanocobalamin (Vitamin B12) 1,000 MCG Tab PO SCH (08:08)
[2018-12-15] MEDS: Multivitamins with Iron/Calcium/Folic Acid/Minerals Tab PO SCH (08:11)
[2018-12-15] MEDS: DILTIAZEM 120 MG PO SCH (08:13)
[2018-12-15] MEDS: PINDOLOL 10 MG PO SCH ×2 (08:14→22:17)
[2018-12-15] MEDS: atorvaSTATin 40 MG Tab**OWN MED PO SCH (22:10)
[2018-12-15] MEDS: Fluticasone Propionate Nasal Spray 16 GM Bottle**OWN MED NASBOTH SCH (22:10)
[2018-12-15] MEDS: ROPINIROLE 0.25 MG PO SCH (22:11)
[2018-12-15] MEDS: Melatonin 3 MG Tab PO SCH (22:12)
[2018-12-16] MEDS: Acetaminophen 500 MG Tab PO PRN ×3 (02:47→11:44)
[2018-12-16] MEDS: diphenhydrAMINE 25 MG Cap PO PRN (04:41)
[2018-12-16] MEDS ORDERED: Acetaminophen 500 MG Tab ONE (07:43)
[2018-12-16] MEDS: DILTIAZEM 120 MG PO SCH (07:44)
[2018-12-16] MEDS: PINDOLOL 10 MG PO SCH ×2 (07:45→21:20)
[2018-12-16] MEDS: HALDOL 5 MG PO SCH ×2 (07:46→21:31)
[2018-12-16] MEDS: FLUOXETINE 10 MG PO SCH (07:46)
[2018-12-16] MEDS: Cyanocobalamin (Vitamin B12) 1,000 MCG Tab PO SCH (07:47)
[2018-12-16] MEDS: Multivitamins with Iron/Calcium/Folic Acid/Minerals Tab PO SCH (07:48)
[2018-12-16] MEDS: atorvaSTATin 40 MG Tab**OWN MED PO SCH (21:25)
[2018-12-16] MEDS: Acetaminophen 325 MG Tab PO PRN (21:25)
[2018-12-16] MEDS: ROPINIROLE 0.25 MG PO SCH (21:30)
[2018-12-16] MEDS: Melatonin 3 MG Tab PO SCH (21:31)
[2018-12-16] MEDS: Fluticasone Propionate Nasal Spray 16 GM Bottle**OWN MED NASBOTH SCH (21:32)
[2018-12-17] MEDS: Acetaminophen 325 MG Tab PO PRN ×3 (04:59→20:45)
[2018-12-17] MEDS: FLUOXETINE 10 MG PO SCH (07:41)
[2018-12-17] MEDS: Multivitamins with Iron/Calcium/Folic Acid/Minerals Tab PO SCH (07:41)
[2018-12-17] MEDS: DILTIAZEM 120 MG PO SCH (07:41)
[2018-12-17] MEDS: PINDOLOL 10 MG PO SCH ×2 (07:42→20:46)
[2018-12-17] MEDS: Cyanocobalamin (Vitamin B12) 1,000 MCG Tab PO SCH (07:42)
[2018-12-17] MEDS: HALDOL 5 MG PO SCH ×2 (07:42→20:52)
[2018-12-17] MEDS: Fluticasone Propionate Nasal Spray 16 GM Bottle**OWN MED NASBOTH SCH (20:51)
[2018-12-17] MEDS: atorvaSTATin 40 MG Tab**OWN MED PO SCH (20:51)
[2018-12-17] MEDS: ROPINIROLE 0.25 MG PO SCH (20:52)
[2018-12-17 20:53] VITALS: BP 114/93
[2018-12-17] MEDS: Melatonin 3 MG Tab PO SCH (20:53)
== END 2018-12-18 04:05 | disposition other institution (70) | DRG 951 ==
LOC: LB.MS 18:18
PROVIDERS: ADMIT Family Medicine; ATTEND Family Medicine
DX: Z75.5 Holiday relief care (principal); R44.0 Auditory hallucinations; R44.1 Visual hallucinations; Z66 Do not resuscitate; I65.21 Occlusion and stenosis of right carotid artery; Z88.0 Allergy status to penicillin; Z88.5 Allergy status to narcotic agent; Z88.8 Allergy status to other drugs, medicaments and biological substances; Z91.040 Latex allergy status
CPT/HCPCS: A9270-GY

== ENCOUNTER 2018-12-19 10:58 | Inpatient (IN) | payer OTHER ==
[2018-12-19] MEDS ORDERED: Omeprazole 20 MG Cap.CR PO PRN (15:43)
[2018-12-19] MEDS ORDERED: ACETAMINOPHEN 650 MG PO PRN (15:43)
[2018-12-19] MEDS ORDERED: Acetaminophen 500 MG Tab PO ONE (17:14)
[2018-12-19] MEDS: Melatonin 3 MG Tab **OWN MED PO SCH (20:59)
[2018-12-19] MEDS: PINDOLOL 10 MG PO SCH (20:59)
[2018-12-19] MEDS: ROPINIROLE 0.25 MG PO SCH (20:59)
[2018-12-19] MEDS: atorvaSTATin 40 MG Tab **OWN MED PO SCH (20:59)
[2018-12-20] MEDS: Acetaminophen/oxyCODONE 325-5 MG Tab **OWN MED PO PRN ×2 (00:27→22:07)
[2018-12-20] MEDS: Acetaminophen 500 MG Tab **OWN MED PO PRN ×3 (05:51→20:12)
[2018-12-20] MEDS ORDERED: CARTIA XT 120 MG PO SCH (08:00)
[2018-12-20] MEDS ORDERED: Fluticasone Propionate Nasal Spray 16 GM Bottle **OWN MED NASBOTH SCH (08:00)
[2018-12-20] MEDS: Aspirin 81 MG Tab.Chew **OWN MED PO SCH (08:54)
[2018-12-20] MEDS: Multivitamins with Iron/Calcium/Folic Acid/Minerals Tab PO SCH (08:54)
[2018-12-20] MEDS: FLUOXETINE 10 MG PO SCH (08:55)
[2018-12-20] MEDS: PINDOLOL 10 MG PO SCH ×2 (08:56→20:02)
--- NOTE | 2018-12-20 17:24 | PCM.HP ---
H&P History of Present Illness - General Date of Service: 12/20/18 Admit Problem/Dx: Admission Diagnosis/Problem Admission Diagnosis/Problem Confusion Source of Information: Patient, RN, Other (records from discharge, [place]) History Limitations: Reports: No Limitations - History of Present Illness Initial Comments - Free Text/Narative: 83 yr female presents after endarterectomy or right carotid. Pt has steri- strips to her neck. Area is clean, dry and intact. Small amount of dark, red, dried, drainage is noted to the bottom part of the dressing. Pt is alert and talkative and happy to be back in [place], her home town. Staff report confusion with pt and disarray to home when pt was recently home. Pt had an acute episode of hallucinations. She hasn't mentioned any hallucinations to this provider at this time. She is ambulatory in her hospital room and to the acute care nursing station. Right Hip Pain Score (Numeric/FACES): 5 - Related Data Allergies/Adverse Reactions: Allergies Allergy/AdvReac Type Severity Reaction Status Date / Time latex Allergy Unknown Hives Verified 12/13/18 17:59 morphine Allergy Nausea and Verified 12/19/18 15:37 Vomiting Penicillins Allergy Cannot Verified 12/13/18 17:59 Remember meperidine HCl [From Demerol] AdvReac Nausea Verified 12/13/18 17:59 tramadol AdvReac Nausea and Verified 12/13/18 17:59 Vomiting Home Medications: Home Meds Pindolol 10 mg PO BID 04/23/13 [History] Fluticasone Propionate [Flonase] 1 spray NASBOTH QPM 11/13/18 [History] Mv-Min/Iron/Folic/Calcium/Vitk [Women's Multivitamin Tablet] 1 each PO DAILY [History] FLUoxetine [PROzac] 10 mg PO DAILY #60 tablet 11/27/18 [Rx] rOPINIRole [Requip] 0.25 mg PO BEDTIME tablet 11/27/18 [Rx] Melatonin 3 mg PO BEDTIME 12/06/18 [History] Omeprazole 20 mg PO DAILY PRN 12/06/18 [History] atorvaSTATin [Lipitor] 40 mg PO BEDTIME 12/06/18 [History] Aspirin 81 mg PO DAILY 12/13/18 [History] Diltiazem HCl [Cartia Xt] 120 mg PO DAILY 12/13/18 [History] Acetaminophen 650 mg PO Q4H PRN 12/19/18 [History] diphenhydrAMINE [Benadryl] 25 mg PO BID PRN 12/19/18 [History] oxyCODONE HCl/Acetaminophen [Oxycodone-Acetaminophen 5-325] 2 each PO 5XDAY PRN 12/19/18 [History] Past Medical History HEENT History: Reports: Impaired Vision Cardiovascular History: Reports: High Cholesterol, Hypertension, Other (See Below) Other Cardiovascular History: Right carotid stenosis Musculoskeletal History: Reports: Back Pain, Chronic, Osteoarthritis, Other ( See Below) 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 Neurological History: Reports: Headaches, Chronic, Other (See Below) 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 Psychiatric History: Reports: Depression - Past Surgical History HEENT Surgical History: Reports: Visual Other HEENT Surgeries/Procedures: wears glasses Cardiovascular Surgical History: Reports: Carotid Endarterectomy Other Cardiovascular Surgeries/Procedures: endarterectomy 12/18/18 Neurological Surgical History: Reports: None Social & Family History - Family History Family Medical History: Noncontributory - Caffeine Use Caffeine Use: Reports: Other Other Caffeine Use: unknown - Living Situation & Occupation Living situation: Reports: , Other Occupation: Retired H&P Review of Systems - Review of Systems: Review Of Systems: See Below General: Denies: Fever, Chills, Decreased Appetite HEENT: Reports: Glasses. Denies: Sinus Congestion, Sore Throat, Visual Changes Pulmonary: Reports: No Symptoms Cardiovascular: Denies: Chest Pain, Dyspnea on Exertion, Lightheadedness Gastrointestinal: Denies: Abdominal Pain, Constipation, Diarrhea Genitourinary: Denies: Dysuria, Burning Skin: Reports: Wound (right side of neck, recent surgery) Psychiatric: Reports: Confusion (slight confusion on/off). Denies: Hallucinations, Suicidal Ideation Neurological: Reports: No Symptoms Hematologic/Lymphatic: Reports: No Symptoms Immunologic: Reports: No Symptoms Exam - Exam Exam: See Below - Vital Signs Vital Signs: Last Vital Signs Temp 98.0 F 12/20/18 15:30 Pulse 64 12/20/18 15:30 Resp 18 12/20/18 15:30 BP 179/89 H 12/20/18 15:30 Pulse Ox 100 12/20/18 15:30 Weight: 115 lb 12.8 oz - Exam General: Alert, Oriented, Cooperative HEENT: Mucosa Moist & [place], Pupils Equal, Pupils Reactive Neck: Supple, Trachea Midline Lungs: Clear to Auscultation, Normal Respiratory Effort Cardiovascular: Regular Rate, Regular Rhythm GI/Abdominal Exam: Normal Bowel Sounds, Soft, Non-Tender (Female) Exam: Deferred Rectal (Female) Exam: Deferred Back Exam: Normal Inspection, Full Range of Motion Extremities: Normal Range of Motion, Non-Tender, Normal Capillary Refill Peripheral Pulses: 2+: Radial (L), Radial (R), Dorsalis Pedis (L), Dorsalis Pedis (R) Skin: Warm, Dry, Wound (steri-strips intact to right side of neck. Area is clean and dry) Neurological: Strength Equal Bilateral, Normal Gait, Normal Speech Neuro Extensive - Mental Status: Alert, Oriented x3, Normal Mood/Affect Neuro Extensive - Motor, Sensory, Reflexes: Normal Gait Psychiatric: Alert, Normal Affect, Normal Mood - Problem List (1) Confusion SNOMED Code(s): 768163774 ICD Code: R41.0 - DISORIENTATION, UNSPECIFIED Status: Suspected Priority : High Current Visit: No Problem List Initiated/Reviewed/Updated: Yes Orders Last 24hrs: Active Orders 24 hr Category Date Time Status Admission Status [Patient Status] [ADT] Routine ADT 12/20/18 09:07 Active Heart Healthy Diet [DIET] Diet 12/19/18 Dinner Ordered CULTURE MRSA SURVEY [RM] Routine Lab 12/19/18 17:25 Received Acetaminophen [Tylenol Extra Strength] Med 12/19/18 19:21 Active 750 mg PO Q6H PRN Aspirin Med 12/20/18 08:00 Active 81 mg PO DAILY Diltiazem Hcl [Cartia Xt] Med 12/20/18 13:35 Active 120 mg PO DAILY FLUoxetine [PROzac] Med 12/20/18 08:00 Active 10 mg PO DAILY Fluticasone Propionate [Flonase] Med 12/20/18 13:44 Active 0.57158 gm NASBOTH QPM Melatonin Med 12/19/18 20:00 Active 3 mg PO BEDTIME Multivitamins w-Iron/Ca/FA/Min [Thera M Plus] Med 12/20/18 08:00 Active 1 tab PO DAILY Pindolol Med 12/19/18 20:00 Active 10 mg PO BID atorvaSTATin [Lipitor] Med 12/19/18 20:00 Active 40 mg PO BEDTIME rOPINIRole [Requip] Med 12/19/18 20:00 Active 0.25 mg PO BEDTIME Medication Orders Acetaminophen (Tylenol Extra Strength) 750 mg PO Q6H PRN PRN Reason: Pain Last Admin: 12/20/18 13:49 Dose: 750 mg Admin: 12/20/18 05:51 Dose: 750 mg Aspirin (Aspirin) 81 mg PO DAILY [facility] Last Admin: 12/20/18 08:54 Dose: 81 mg Atorvastatin Calcium (Lipitor) 40 mg PO BEDTIME [facility] Last Admin: 12/19/18 20:59 Dose: 40 mg Diphenhydramine HCl (Benadryl) 25 mg PO BID PRN PRN Reason: tardive dyskinesia, pain Fluoxetine HCl (Prozac) 10 mg PO DAILY [facility] Last Admin: 12/20/18 08:55 Dose: 10 mg Fluticasone Propionate (Flonase) 0.35081 gm NASBOTH QPM [facility] Melatonin (Melatonin) 3 mg PO BEDTIME [facility] Last Admin: 12/19/18 20:59 Dose: 3 mg Multivitamins/Minerals (Thera M Plus) 1 tab PO DAILY [facility] Last Admin: 12/20/18 08:54 Dose: 1 tab Cartia Xt 120 Mg Er (Cap Own Med) 120 mg PO DAILY [facility] Omeprazole (Omeprazole) 20 mg PO DAILY@0700 PRN PRN Reason: Gas Oxycodone/Acetaminophen (Percocet 325-5 Mg) 2 tab PO 5XDAY PRN PRN Reason: Pain Last Admin: 12/20/18 00:27 Dose: 2 tab Pindolol (Pindolol) 10 mg PO BID [facility] Last Admin: 12/20/18 08:56 Dose: 10 mg Admin: 12/19/18 20:59 Dose: 10 mg Ropinirole HCl (Requip) 0.25 mg PO BEDTIME [facility] Last Admin: 12/19/18 20:59 Dose: 0.25 mg Assessment/Plan Comment:: Pt placed on respite today S/P right carotid endarterectomy. Continue with medications as prescribed. Assist with ADL's as needed. CARIN. VS prn. Plan to continue with respite care and discharge plan to Assisted Living when staffing and room available.
[2018-12-20] MEDS: Fluticasone Propionate Nasal Spray 16 GM Bottle **OWN MED NASBOTH SCH (20:00)
[2018-12-20] MEDS: atorvaSTATin 40 MG Tab **OWN MED PO SCH (20:01)
[2018-12-20] MEDS: Melatonin 3 MG Tab **OWN MED PO SCH (20:02)
[2018-12-20] MEDS: ROPINIROLE 0.25 MG PO SCH (20:03)
[2018-12-21] MEDS: Acetaminophen/oxyCODONE 325-5 MG Tab **OWN MED PO PRN (05:27)
[2018-12-21] MEDS: PINDOLOL 10 MG PO SCH ×2 (08:15→21:18)
[2018-12-21] MEDS: Aspirin 81 MG Tab.Chew **OWN MED PO SCH (08:15)
[2018-12-21] MEDS: CARTIA XT 120 MG PO SCH (08:16)
[2018-12-21] MEDS: FLUOXETINE 10 MG PO SCH (08:16)
[2018-12-21] MEDS: Multivitamins with Iron/Calcium/Folic Acid/Minerals Tab PO SCH (08:16)
[2018-12-21] MEDS: Acetaminophen 500 MG Tab **OWN MED PO PRN ×2 (15:12→21:20)
[2018-12-21] MEDS: Fluticasone Propionate Nasal Spray 16 GM Bottle **OWN MED NASBOTH SCH (21:18)
[2018-12-21] MEDS: atorvaSTATin 40 MG Tab **OWN MED PO SCH (21:19)
[2018-12-21] MEDS: Melatonin 3 MG Tab **OWN MED PO SCH (21:19)
[2018-12-21] MEDS: ROPINIROLE 0.25 MG PO SCH (21:19)
[2018-12-22] MEDS: Acetaminophen 500 MG Tab **OWN MED PO PRN ×2 (07:09→17:12)
[2018-12-22] MEDS: PINDOLOL 10 MG PO SCH ×2 (07:11→20:04)
[2018-12-22] MEDS: CARTIA XT 120 MG PO SCH (07:12)
[2018-12-22] MEDS: FLUOXETINE 10 MG PO SCH (07:12)
[2018-12-22] MEDS: Aspirin 81 MG Tab.Chew **OWN MED PO SCH (07:12)
[2018-12-22] MEDS: Multivitamins with Iron/Calcium/Folic Acid/Minerals Tab PO SCH (07:13)
[2018-12-22] MEDS: Fluticasone Propionate Nasal Spray 16 GM Bottle **OWN MED NASBOTH SCH (20:04)
[2018-12-22] MEDS: Melatonin 3 MG Tab **OWN MED PO SCH (20:04)
[2018-12-22] MEDS: atorvaSTATin 40 MG Tab **OWN MED PO SCH (20:05)
[2018-12-22] MEDS: ROPINIROLE 0.25 MG PO SCH (20:09)
[2018-12-23] MEDS: Acetaminophen 500 MG Tab **OWN MED PO PRN ×2 (04:00→17:20)
[2018-12-23] MEDS: Aspirin 81 MG Tab.Chew **OWN MED PO SCH (08:06)
[2018-12-23] MEDS: CARTIA XT 120 MG PO SCH (08:07)
[2018-12-23] MEDS: FLUOXETINE 10 MG PO SCH (08:08)
[2018-12-23] MEDS: Multivitamins with Iron/Calcium/Folic Acid/Minerals Tab PO SCH (08:08)
[2018-12-23] MEDS: Acetaminophen/oxyCODONE 325-5 MG Tab **OWN MED PO PRN (08:14)
[2018-12-23] MEDS: PINDOLOL 10 MG PO SCH ×2 (08:19→21:51)
[2018-12-23] MEDS: Fluticasone Propionate Nasal Spray 16 GM Bottle **OWN MED NASBOTH SCH (21:48)
[2018-12-23] MEDS: Melatonin 3 MG Tab **OWN MED PO SCH (21:49)
[2018-12-23] MEDS: ROPINIROLE 0.25 MG PO SCH (21:50)
[2018-12-23] MEDS: atorvaSTATin 40 MG Tab **OWN MED PO SCH (21:55)
[2018-12-24] MEDS: Acetaminophen 500 MG Tab **OWN MED PO PRN ×3 (04:36→17:59)
[2018-12-24] MEDS: Aspirin 81 MG Tab.Chew **OWN MED PO SCH (08:11)
[2018-12-24] MEDS: CARTIA XT 120 MG PO SCH (08:12)
[2018-12-24] MEDS: Multivitamins with Iron/Calcium/Folic Acid/Minerals Tab PO SCH (08:14)
[2018-12-24] MEDS: FLUOXETINE 10 MG PO SCH (08:14)
[2018-12-24] MEDS: PINDOLOL 10 MG PO SCH ×2 (08:15→22:22)
[2018-12-24] MEDS: DEXTROMETHORPHAN PO PRN ×2 (18:00→22:29)
[2018-12-24] MEDS: GUAIFENESIN PO PRN ×2 (18:00→22:29)
[2018-12-24] MEDS: Fluticasone Propionate Nasal Spray 16 GM Bottle **OWN MED NASBOTH SCH (22:18)
[2018-12-24] MEDS: Melatonin 3 MG Tab **OWN MED PO SCH (22:20)
[2018-12-24] MEDS: atorvaSTATin 40 MG Tab **OWN MED PO SCH (22:20)
[2018-12-24] MEDS: LORATIDINE 10 MG PO SCH (22:21)
[2018-12-24] MEDS: ROPINIROLE 0.25 MG PO SCH (22:21)
[2018-12-25] MEDS: Aspirin 81 MG Tab.Chew **OWN MED PO SCH (07:16)
[2018-12-25] MEDS: CARTIA XT 120 MG PO SCH (07:17)
[2018-12-25] MEDS: PINDOLOL 10 MG PO SCH ×2 (07:17→21:39)
[2018-12-25] MEDS: FLUOXETINE 10 MG PO SCH (07:19)
[2018-12-25] MEDS: Multivitamins with Iron/Calcium/Folic Acid/Minerals Tab PO SCH (07:20)
[2018-12-25] MEDS: Acetaminophen 500 MG Tab **OWN MED PO PRN ×2 (11:38→21:42)
[2018-12-25] MEDS: LORATIDINE 10 MG PO SCH (21:38)
[2018-12-25] MEDS: ROPINIROLE 0.25 MG PO SCH (21:38)
[2018-12-25] MEDS: Fluticasone Propionate Nasal Spray 16 GM Bottle **OWN MED NASBOTH SCH (21:40)
[2018-12-25] MEDS: atorvaSTATin 40 MG Tab **OWN MED PO SCH (21:40)
[2018-12-26] MEDS: Melatonin 3 MG Tab **OWN MED PO SCH ×2 (00:43→20:25)
[2018-12-26] MEDS: PINDOLOL 10 MG PO SCH ×2 (08:00→20:25)
[2018-12-26] MEDS: FLUOXETINE 10 MG PO SCH (08:00)
[2018-12-26] MEDS: Multivitamins with Iron/Calcium/Folic Acid/Minerals Tab PO SCH (08:00)
[2018-12-26] MEDS: Aspirin 81 MG Tab.Chew **OWN MED PO SCH (08:00)
[2018-12-26] MEDS: CARTIA XT 120 MG PO SCH (08:00)
[2018-12-26] MEDS: Acetaminophen 500 MG Tab **OWN MED PO PRN ×2 (13:17→20:26)
[2018-12-26] MEDS: atorvaSTATin 40 MG Tab **OWN MED PO SCH (20:25)
[2018-12-26] MEDS: Fluticasone Propionate Nasal Spray 16 GM Bottle **OWN MED NASBOTH SCH (20:25)
[2018-12-26] MEDS: ROPINIROLE 0.25 MG PO SCH (20:26)
[2018-12-26] MEDS: LORATIDINE 10 MG PO SCH (20:26)
[2018-12-27] MEDS: Aspirin 81 MG Tab.Chew **OWN MED PO SCH (07:54)
[2018-12-27] MEDS: CARTIA XT 120 MG PO SCH (07:55)
[2018-12-27] MEDS: PINDOLOL 10 MG PO SCH ×2 (07:55→20:03)
[2018-12-27] MEDS: FLUOXETINE 10 MG PO SCH (07:56)
[2018-12-27] MEDS: Multivitamins with Iron/Calcium/Folic Acid/Minerals Tab PO SCH (07:57)
[2018-12-27] MEDS: Acetaminophen 500 MG Tab **OWN MED PO PRN ×2 (08:04→20:04)
[2018-12-27] MEDS: BENZONATATE 100 MG PO PRN ×2 (16:43→20:03)
[2018-12-27] MEDS ORDERED: AZITHROMYCIN 250 MG PO ONE (16:45)
[2018-12-27] MEDS: LORATIDINE 10 MG PO SCH (20:03)
[2018-12-27] MEDS: Melatonin 3 MG Tab **OWN MED PO SCH (20:03)
[2018-12-27] MEDS: ROPINIROLE 0.25 MG PO SCH (20:03)
[2018-12-27] MEDS: atorvaSTATin 40 MG Tab **OWN MED PO SCH (20:03)
[2018-12-27] MEDS: Fluticasone Propionate Nasal Spray 16 GM Bottle **OWN MED NASBOTH SCH (20:04)
[2018-12-28] MEDS: Acetaminophen 500 MG Tab **OWN MED PO PRN (09:30)
[2018-12-28] MEDS: Aspirin 81 MG Tab.Chew **OWN MED PO SCH (09:31)
[2018-12-28] MEDS: CARTIA XT 120 MG PO SCH (09:32)
[2018-12-28] MEDS: PINDOLOL 10 MG PO SCH ×2 (09:33→22:55)
[2018-12-28] MEDS: FLUOXETINE 10 MG PO SCH (09:36)
[2018-12-28] MEDS: Multivitamins with Iron/Calcium/Folic Acid/Minerals Tab PO SCH (09:37)
[2018-12-28] MEDS: AZITHROMYCIN 250 MG PO SCH (09:38)
[2018-12-28] MEDS: BENZONATATE 100 MG PO PRN (09:39)
[2018-12-28] MEDS: Fluticasone Propionate Nasal Spray 16 GM Bottle **OWN MED NASBOTH SCH (22:02)
[2018-12-28] MEDS: atorvaSTATin 40 MG Tab **OWN MED PO SCH (22:56)
[2018-12-28] MEDS: Melatonin 3 MG Tab **OWN MED PO SCH (22:57)
[2018-12-28] MEDS: ROPINIROLE 0.25 MG PO SCH (22:57)
[2018-12-28] MEDS: LORATIDINE 10 MG PO SCH (22:57)
[2018-12-29] MEDS: Aspirin 81 MG Tab.Chew **OWN MED PO SCH (08:07)
[2018-12-29] MEDS: CARTIA XT 120 MG PO SCH (08:08)
[2018-12-29] MEDS: PINDOLOL 10 MG PO SCH ×2 (08:08→22:45)
[2018-12-29] MEDS: Multivitamins with Iron/Calcium/Folic Acid/Minerals Tab PO SCH (08:09)
[2018-12-29] MEDS: FLUOXETINE 10 MG PO SCH (08:09)
[2018-12-29] MEDS: AZITHROMYCIN 250 MG PO SCH (08:09)
[2018-12-29] MEDS: Acetaminophen 500 MG Tab **OWN MED PO PRN ×3 (08:11→22:49)
[2018-12-29] MEDS: Fluticasone Propionate Nasal Spray 16 GM Bottle **OWN MED NASBOTH SCH (22:33)
[2018-12-29] MEDS: ROPINIROLE 0.25 MG PO SCH (22:45)
[2018-12-29] MEDS: LORATIDINE 10 MG PO SCH (22:45)
[2018-12-29] MEDS: Melatonin 3 MG Tab **OWN MED PO SCH (22:45)
[2018-12-29] MEDS: atorvaSTATin 40 MG Tab **OWN MED PO SCH (22:45)
[2018-12-30] MEDS: Aspirin 81 MG Tab.Chew **OWN MED PO SCH (07:46)
[2018-12-30] MEDS: CARTIA XT 120 MG PO SCH (07:47)
[2018-12-30] MEDS: FLUOXETINE 10 MG PO SCH (07:48)
[2018-12-30] MEDS: Multivitamins with Iron/Calcium/Folic Acid/Minerals Tab PO SCH (07:49)
[2018-12-30] MEDS: AZITHROMYCIN 250 MG PO SCH (07:49)
[2018-12-30] MEDS: PINDOLOL 10 MG PO SCH ×2 (07:54→20:02)
[2018-12-30] MEDS: Acetaminophen 500 MG Tab **OWN MED PO PRN ×2 (08:02→20:05)
[2018-12-30] MEDS: Fluticasone Propionate Nasal Spray 16 GM Bottle **OWN MED NASBOTH SCH (20:00)
[2018-12-30] MEDS: atorvaSTATin 40 MG Tab **OWN MED PO SCH (20:01)
[2018-12-30] MEDS: LORATIDINE 10 MG PO SCH (20:01)
[2018-12-30] MEDS: Melatonin 3 MG Tab **OWN MED PO SCH (20:01)
[2018-12-30] MEDS: ROPINIROLE 0.25 MG PO SCH (20:03)
[2018-12-31] MEDS: Acetaminophen 500 MG Tab **OWN MED PO PRN ×2 (05:20→22:08)
[2018-12-31] MEDS: FLUOXETINE 10 MG PO SCH (08:40)
[2018-12-31] MEDS: Aspirin 81 MG Tab.Chew **OWN MED PO SCH (08:40)
[2018-12-31] MEDS: CARTIA XT 120 MG PO SCH (08:41)
[2018-12-31] MEDS: PINDOLOL 10 MG PO SCH ×2 (08:41→22:07)
[2018-12-31] MEDS: AZITHROMYCIN 250 MG PO SCH (08:42)
[2018-12-31] MEDS: Multivitamins with Iron/Calcium/Folic Acid/Minerals Tab PO SCH (08:42)
[2018-12-31] MEDS: atorvaSTATin 40 MG Tab **OWN MED PO SCH (22:05)
[2018-12-31] MEDS: Fluticasone Propionate Nasal Spray 16 GM Bottle **OWN MED NASBOTH SCH (22:05)
[2018-12-31] MEDS: Melatonin 3 MG Tab **OWN MED PO SCH (22:06)
[2018-12-31] MEDS: LORATIDINE 10 MG PO SCH (22:06)
[2018-12-31] MEDS: ROPINIROLE 0.25 MG PO SCH (22:07)
[2019-01-01] MEDS: Aspirin 81 MG Tab.Chew **OWN MED PO SCH (08:28)
[2019-01-01] MEDS: CARTIA XT 120 MG PO SCH (08:29)
[2019-01-01] MEDS: PINDOLOL 10 MG PO SCH ×2 (08:30→22:05)
[2019-01-01] MEDS: FLUOXETINE 10 MG PO SCH (08:31)
[2019-01-01] MEDS: Acetaminophen 500 MG Tab **OWN MED PO PRN ×2 (08:32→22:09)
[2019-01-01] MEDS: Multivitamins with Iron/Calcium/Folic Acid/Minerals Tab PO SCH (08:32)
[2019-01-01] MEDS: Fluticasone Propionate Nasal Spray 16 GM Bottle **OWN MED NASBOTH SCH (22:04)
[2019-01-01] MEDS: LORATIDINE 10 MG PO SCH (22:04)
[2019-01-01] MEDS: atorvaSTATin 40 MG Tab **OWN MED PO SCH (22:05)
[2019-01-01] MEDS: ROPINIROLE 0.25 MG PO SCH (22:05)
[2019-01-01] MEDS: Melatonin 3 MG Tab **OWN MED PO SCH (22:06)
[2019-01-02] MEDS: Acetaminophen 500 MG Tab **OWN MED PO PRN (06:09)
[2019-01-02 08:19] VITALS: BP 139/78
[2019-01-02] MEDS: PINDOLOL 10 MG PO SCH (08:24)
[2019-01-02] MEDS: FLUOXETINE 10 MG PO SCH (08:24)
[2019-01-02] MEDS: CARTIA XT 120 MG PO SCH (08:25)
[2019-01-02] MEDS: Multivitamins with Iron/Calcium/Folic Acid/Minerals Tab PO SCH (08:26)
[2019-01-02] MEDS: Aspirin 81 MG Tab.Chew **OWN MED PO SCH (08:26)
== END 2019-01-02 15:00 | disposition home or self-care (01) | DRG 948 ==
LOC: LB.MS 14:20 → UNDOADMIN 14:20 → LB.MS 12-20 09:07
PROVIDERS: ADMIT Nurse Practitioner Family; ATTEND Nurse Practitioner Family
DX: R41.0 Disorientation, unspecified (principal); Z75.5 Holiday relief care; Z66 Do not resuscitate; Z98.890 Other specified postprocedural states; I10 Essential (primary) hypertension; H54.7 Unspecified visual loss; E78.00 Pure hypercholesterolemia, unspecified; M54.9 Dorsalgia, unspecified; G89.29 Other chronic pain; M19.90 Unspecified osteoarthritis, unspecified site; G44.89 Other headache syndrome; F32.9 Major depressive disorder, single episode, unspecified; Z86.73 Personal history of transient ischemic attack (TIA), and cerebral infarction without residual deficits; Z91.040 Latex allergy status; Z88.0 Allergy status to penicillin; Z88.8 Allergy status to other drugs, medicaments and biological substances; Z88.5 Allergy status to narcotic agent
CPT/HCPCS: A9270-GY

== ENCOUNTER 2019-05-17 08:09 | Emergency (ER) | payer MEDICARE, MEDICAID ==
[2019-05-17] MEDS ORDERED: Acetaminophen/HYDROcodone 325-5 MG Tab ONE (08:15)
[2019-05-17 08:31] VITALS: BP 138/68; PULSE 68
--- NOTE | 2019-05-17 11:25 | ER ---
REASON FOR VISIT: Right shoulder injury. HISTORY: This 83-year-old resident of the assisted living facility, apparently fell out of bed and landed on her right shoulder. She was brought down to the emergency department by wheelchair, complaining of pain in the right shoulder. She also sustained a bruise to her left lower leg. PAST MEDICAL HISTORY: Reviewed. Please see electronic medical record. She does have significant rheumatoid arthritis. MEDICATIONS: Reviewed. Please see electronic medical record. ALLERGIES: TO LATEX, MORPHINE, PENICILLINS, DEMEROL, AND TRAMADOL. ROS: All pertinent positives and negatives as in HPI PHYSICAL EXAMINATION: GENERAL: She is comfortable and talking even jocular at times. She is certainly in no acute distress. HEENT: Atraumatic. MUSCULOSKELETAL: Right shoulder, she has some tenderness over the distal right clavicle area and over the glenohumeral area. Her range of motion is limited because of pain in her right shoulder. She does have classic deformities in her hands and wrists consistent with rheumatoid arthritis. CHEST: Clear to auscultation. ABDOMEN: Soft. EXTREMITIES: She does have a contusion over the medial aspect of her left lower leg. There is a very minimal superficial abrasion overlying this area. IMAGING: X-rays of her right shoulder revealed a nondisplaced, minimally impacted distal right clavicle fracture (see report). IMPRESSION: 1. Right clavicle fracture. 2. Left lower leg contusion, mild. PLAN: She seems to be having very little discomfort at this time. I offered her a sling and told her that nothing further needs to be done. She was given a prescription of hydrocodone with acetaminophen, dispensed #10, 1 q.6 hours p.r.n. pain. She is scheduled to be seen in followup by her provider, Dr. Diaz in the 1st week of May that should be sufficient. Should she have any problems, she should contact us. She understands and agrees. OTIS/KAR /[id number] HERBER
--- NOTE | 2019-05-18 10:26 | CR ---
Date of Service: 05/17/19 Clinical Data: fall RIGHT SHOULDER: No priors. There are moderate osteoarthritic changes of the right AC joint. There are severe osteoarthritic changes of the glenohumeral joint. 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 No acute abnormalities. [id number] [facility]
== END 2019-05-17 09:45 | disposition home or self-care (01) ==
LOC: LB.ED 08:09
DX: S42.001A Fracture of unspecified part of right clavicle, initial encounter for closed fracture (principal); S80.12XA Contusion of left lower leg, initial encounter; Z88.5 Allergy status to narcotic agent; Z88.0 Allergy status to penicillin; Z91.040 Latex allergy status; W06.XXXA Fall from bed, initial encounter; Y92.129 Unspecified place in nursing home as the place of occurrence of the external cause
CPT/HCPCS: 73030-RT; 99283; 99283-25; A9270-GY

== ENCOUNTER 2020-01-16 17:37 | Emergency (ER) | payer MEDICARE, MEDICAID ==
[2020-01-16 18:25] VITALS: BP 134/82; PULSE 64
--- NOTE | 2020-01-17 12:58 | ER ---
REASON FOR EMERGENCY ROOM VISIT: Fall. HISTORY: This 84-year-old resident of the [facility] [place] was sent down per protocol after she tripped and fell on a carpeted floor sustaining an abrasion to her right forehead and her right knee area. She denies any loss of consciousness and remembers the event quite clearly. She denies any headache. Denies any visual symptoms. No numbness or weakness. PAST MEDICAL HISTORY: Reviewed. See EMR. MEDICATIONS: Reviewed. See EMR. Pertinent positives and negatives as noted in the HPI. PHYSICAL EXAMINATION: GENERAL: She is awake, alert, talkative, and jocular as usual. HEENT: She has a 1 cm diameter abrasion with minimal surrounding edema on her right forehead. There is no bony crepitus noted and this area is nontender. TMs are normal. Oropharynx is normal. Pupils equally round and reactive to light. EXTREMITIES: She has a 1 cm diameter abrasion that is superficial over her right patella. Again, there is no tenderness or crepitus. Her knee range of motion is normal. She has no ecchymosis. NEUROLOGIC: Cranial nerves 2 through 12 are intact. She does have a slight left lower facial muscle droop, which is normal for her. Muscle, strength, bulk, and tone are normal and symmetrical bilaterally in the upper and lower extremities. Deep tendon reflexes are symmetrical bilaterally in both lower extremities. Sensation is normal to crude touch. IMPRESSION: Abrasion, right forehead and right knee area. PLAN: These will be washed up with bactericidal soap and water. Antibiotic ointment will be applied and she has been instructed to keep a Band-Aid over these for the next couple of days and to wash them 2-3 times a day with bactericidal soap and water. All questions were answered. She understands. OTIS/KAR /[id number]
== END 2020-01-16 18:31 | disposition home or self-care (01) ==
LOC: LB.ED 17:37
DX: S80.211A Abrasion, right knee, initial encounter (principal); S00.81XA Abrasion of other part of head, initial encounter; W01.0XXA Fall on same level from slipping, tripping and stumbling without subsequent striking against object, initial encounter
CPT/HCPCS: 99282; 99283

== ENCOUNTER 2020-03-19 21:44 | Emergency (ER) | payer MEDICARE, MEDICAID ==
[2020-03-19 22:13] VITALS: BP 127/90; PULSE 67
--- NOTE | 2020-03-19 22:22 | EDM.PDOC ---
ED HPI GENERAL MEDICAL PROBLEM - General Chief Complaint: General Stated Complaint: HIP PAIN Time Seen by Provider: 03/19/20 22:20 Source of Information: Reports: Patient History Limitations: Reports: No Limitations - History of Present Illness INITIAL COMMENTS - FREE TEXT/NARRATIVE: Patient fell in her apartment. History of left hip surgery and is concerned she may have injured her hip . Pain worsened after fall. Able to walk and bear weight but concerned about possible fracture. 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: Other (see below) (Rest) Left Hip Pain Score (Numeric/FACES): 4 - Related Data Allergies Allergy/AdvReac Type Severity Reaction Status Date / Time latex Allergy Unknown Hives Verified 03/19/20 22:04 morphine Allergy Nausea and Verified 03/19/20 22:04 Vomiting Penicillins Allergy Cannot Verified 03/19/20 22:04 Remember meperidine HCl [From Demerol] AdvReac Nausea Verified 03/19/20 22:04 tramadol AdvReac Nausea and Verified 03/19/20 22:04 Vomiting Home Meds: Home Meds pindoloL [Pindolol] 10 mg PO BID 04/23/13 [History] Fluticasone Propionate [Flonase] 1 spray NASBOTH QPM 11/13/18 [History] Mv-Min/Iron/Folic/Calcium/Vitk [Women's Multivitamin Tablet] 1 each PO DAILY 11/13/18 [History] FLUoxetine [PROzac] 10 mg PO DAILY #60 tablet 11/27/18 [Rx] rOPINIRole [Requip] 0.25 mg PO BEDTIME tablet 11/27/18 [Rx] Melatonin 3 mg PO BEDTIME 12/06/18 [History] Omeprazole 20 mg PO DAILY PRN 12/06/18 [History] atorvaSTATin [Lipitor] 40 mg PO BEDTIME 12/06/18 [History] Aspirin 81 mg PO DAILY 12/13/18 [History] dilTIAZem HCL [Cartia Xt] 120 mg PO DAILY 12/13/18 [History] Acetaminophen 650 mg PO Q4H PRN 12/19/18 [History] diphenhydrAMINE [Benadryl] 25 mg PO BID PRN 12/19/18 [History] oxyCODONE HCl/Acetaminophen [Oxycodone-Acetaminophen 5-325] 2 each PO 5XDAY PRN 12/19/18 [History] Past Medical History HEENT History: Reports: Impaired Vision Cardiovascular History: Reports: High Cholesterol, Hypertension, Other (See Below) Other Cardiovascular History: Right carotid stenosis Genitourinary History: Reports: Urinary Incontinence Musculoskeletal History: Reports: Back Pain, Chronic, Osteoarthritis, Other (See Below) 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 Neurological History: Reports: Headaches, Chronic, Other (See Below) 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 Psychiatric History: Reports: Depression - Infectious Disease History Infectious Disease History: Reports: Chicken Pox, Measles, Rubella - Past Surgical History HEENT Surgical History: Reports: Visual Other HEENT Surgeries/Procedures: wears glasses Cardiovascular Surgical History: Reports: Carotid Endarterectomy Other Cardiovascular Surgeries/Procedures: endarterectomy 12/18/18 Neurological Surgical History: Reports: None Social & Family History - Family History Family Medical History: Noncontributory - Tobacco Use Tobacco Use Status *Q: Never Tobacco User Second Hand Smoke Exposure: No - Caffeine Use Caffeine Use: Reports: Coffee Other Caffeine Use: unknown - Recreational Drug Use Recreational Drug Use: No - Living Situation & Occupation Living situation: Reports: , Other Occupation: Retired ED ROS GENERAL - Review of Systems Review Of Systems: See Below Constitutional: Reports: No Symptoms HEENT: Reports: No Symptoms Respiratory: Reports: No Symptoms Cardiovascular: Reports: No Symptoms GI/Abdominal: Reports: No Symptoms Musculoskeletal: Reports: Other (Pain in left lateral hip wihotu deformity). Denies: Neck Pain Skin: Reports: No Symptoms Neurological: Reports: Other (Denies head trauma). Denies: Confusion, Dizziness, Headache ED EXAM, GENERAL - Physical Exam Exam: See Below Exam Limited By: No Limitations General Appearance: Alert, WD/WN, No Apparent Distress Nose: Normal Inspection Throat/Mouth: Normal Inspection Head: Atraumatic Neck: Normal Inspection, Non-Tender, Full Range of Motion Respiratory/Chest: No Respiratory Distress, Lungs Clear, Normal Breath Sounds, Chest Non-Tender Cardiovascular: Regular Rate, Rhythm, No Murmur GI/Abdominal: Soft, Non-Tender Back Exam: Normal Inspection. No: Paraspinal Tenderness, Vertebral Tenderness Extremities: Other (Left hip NROM with [id number] over greater trochanter of left hip. With bruising or laceration of hip) Neurological: Alert, Oriented, Normal Cognition, Normal Gait Psychiatric: Normal Affect, Normal Mood Skin Exam: Warm, Dry, Intact Course - Vital Signs Last Recorded V/S: Last Vital Signs Temp Pulse 67 03/19/20 22:12 Resp 16 03/19/20 22:12 BP 127/90 03/19/20 22:12 Pulse Ox 100 03/19/20 22:12 - Orders/Labs/Meds Meds: Medications Discontinued Medications Generic Name Dose Route Start Last Admin Trade Name Freq PRN Reason Stop Dose Admin Acetaminophen 650 mg 03/19/20 22:25 03/19/20 22:28 Tylenol PO 03/19/20 22:26 650 mg NOW ONE Administration Departure - Departure Time of Disposition: 22:22 Disposition: Home, Self-Care 01 Clinical Impression: Contusion of left hip, initial encounter - Discharge Information *PRESCRIPTION DRUG MONITORING PROGRAM REVIEWED*: Not Applicable *COPY OF PRESCRIPTION DRUG MONITORING REPORT IN PATIENT EJ: Not Applicable Instructions: Contusion, [id number] Referrals: PCP,None [Primary Care Provider] - Forms: ED Department Discharge Additional Instructions: Tylenol as needed for pain Return to emergency department or clinic if pain worsens or doesn't clear in next 4-7 days Sepsis Event Note (ED) - Evaluation Sepsis Screening Result: No Definite Risk
[2020-03-19] MEDS: Acetaminophen 325 MG Tab PO ONE (22:28)
--- NOTE | 2020-03-20 15:56 | CR ---
CLINICAL DATA: Fall. LEFT FEMUR, 19 MARCH 2020: There is a healed fracture through the proximal femur that is fixed internally with an intramedullary diana and multiple screws. There is diffuse osteopenia. No acute fracture or dislocation. There are moderate osteoarthritic changes of the left hip joint. There is a calcified nodule within the pelvis, consistent with a calcified uterine leiomyoma. No other significant findings. Job: [id number] MTDD
== END 2020-03-19 22:33 | disposition home or self-care (01) ==
LOC: LB.ED 21:44
DX: S70.02XA Contusion of left hip, initial encounter (principal); E78.00 Pure hypercholesterolemia, unspecified; I10 Essential (primary) hypertension; M19.90 Unspecified osteoarthritis, unspecified site; F32.9 Major depressive disorder, single episode, unspecified; W19.XXXA Unspecified fall, initial encounter; Z91.040 Latex allergy status; Z88.5 Allergy status to narcotic agent; Z88.0 Allergy status to penicillin; Z79.82 Long term (current) use of aspirin; Z79.899 Other long term (current) drug therapy; Y92.039 Unspecified place in apartment as the place of occurrence of the external cause
CPT/HCPCS: 73552-LT; 99282; 99283-25; A9270-GY

== ENCOUNTER 2020-06-02 10:33 | Emergency (ER) | payer MEDICARE, MEDICAID ==
[2013-06-20 08:18] VITALS: BP 127/72
--- NOTE | 2020-06-02 12:57 | EDM.PDOCBH ---
ED HPI GENERAL MEDICAL PROBLEM - General Stated Complaint: increased anxiety Time Seen by Provider: 06/02/20 12:30 Source of Information: Reports: Patient, Other (Nursing of assisted living) History Limitations: Reports: No Limitations - History of Present Illness INITIAL COMMENTS - FREE TEXT/NARRATIVE: Patient is an 84 y/o female who presents for anxiety and hallucinations. She suffers from this chronically, but last night she violated her curfew and was wondering around the living area, rearranging things. Patient sees shadow people at night and she becomes very frightened. It is unknown whether she takes her medications as directed, according to staff. Patient wants to leave and go somewhere else, she no longer feels safe here. She denies any pain, CHISHOLM, dizziness, suicidal or homicidal thoughts. - Related Data Allergies Allergy/AdvReac Type Severity Reaction Status Date / Time latex Allergy Unknown Hives Verified 03/19/20 22:04 morphine Allergy Nausea and Verified 03/19/20 22:04 Vomiting Penicillins Allergy Cannot Verified 03/19/20 22:04 Remember meperidine HCl [From Demerol] AdvReac Nausea Verified 03/19/20 22:04 tramadol AdvReac Nausea and Verified 03/19/20 22:04 Vomiting Home Meds: Home Meds pindoloL [Pindolol] 10 mg PO BID 04/23/13 [History] Fluticasone Propionate [Flonase] 1 spray NASBOTH QPM 11/13/18 [History] Mv-Min/Iron/Folic/Calcium/Vitk [Women's Multivitamin Tablet] 0.5 each PO DAILY 11/13/18 [History] rOPINIRole [Requip] 0.25 mg PO BEDTIME tablet 11/27/18 [Rx] Melatonin 3 mg PO BEDTIME 12/06/18 [History] Omeprazole 20 mg PO DAILY PRN 12/06/18 [History] atorvaSTATin [Lipitor] 20 mg PO BEDTIME 12/06/18 [History] Aspirin 81 mg PO DAILY 12/13/18 [History] dilTIAZem HCL [Cartia Xt] 120 mg PO DAILY 12/13/18 [History] Acetaminophen 750 mg PO BID 12/19/18 [History] diphenhydrAMINE [Benadryl] 25 mg PO BID PRN 12/19/18 [History] FLUoxetine [PROzac] 20 mg PO BID 06/02/20 [History] Ferrous Sulfate 325 mg PO DAILY 06/02/20 [History] Past Medical History HEENT History: Reports: Impaired Vision Cardiovascular History: Reports: High Cholesterol, Hypertension, Other (See Below) Other Cardiovascular History: Right carotid stenosis Genitourinary History: Reports: Urinary Incontinence Musculoskeletal History: Reports: Back Pain, Chronic, Osteoarthritis, Other (See Below) 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 Neurological History: Reports: Headaches, Chronic, Other (See Below) 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 Psychiatric History: Reports: Depression - Infectious Disease History Infectious Disease History: Reports: Chicken Pox, Measles, Rubella - Past Surgical History HEENT Surgical History: Reports: Visual Other HEENT Surgeries/Procedures: wears glasses Cardiovascular Surgical History: Reports: Carotid Endarterectomy Other Cardiovascular Surgeries/Procedures: endarterectomy 12/18/18 Neurological Surgical History: Reports: None Social & Family History - Family History Family Medical History: No Pertinent Family History - Caffeine Use Caffeine Use: Reports: Coffee Other Caffeine Use: unknown - Living Situation & Occupation Living situation: Reports: , Other Occupation: Retired ED ROS GENERAL - Review of Systems Review Of Systems: See Below Constitutional: Reports: No Symptoms HEENT: Reports: No Symptoms Respiratory: Reports: No Symptoms Cardiovascular: Reports: No Symptoms Endocrine: Reports: No Symptoms GI/Abdominal: Reports: No Symptoms : Reports: No Symptoms Musculoskeletal: Reports: No Symptoms Skin: Reports: No Symptoms Neurological: Reports: No Symptoms Psychiatric: Reports: Anxiety, Hallucinations ED EXAM, BEHAVIORAL HEALTH - Physical Exam Exam: See Below Exam Limited By: No Limitations General Appearance: Alert, No Apparent Distress, Other (pleasant) Nose: Normal Inspection Throat/Mouth: Normal Inspection, Normal Lips Head: Atraumatic, Normocephalic Neck: Normal Inspection, Supple, Non-Tender, Full Range of Motion Respiratory/Chest: No Respiratory Distress, Lungs Clear, Normal Breath Sounds, No Accessory Muscle Use, Chest Non-Tender Cardiovascular: Normal Peripheral Pulses, Regular Rate, Rhythm, No Edema, No Murmur GI/Abdominal: Normal Bowel Sounds, Soft, Non-Tender, No Distention Extremities: Normal Inspection, Normal Range of Motion Neurological: Alert, Normal Mood/Affect, CN II-XII Intact, Normal Gait, No Motor/Sensory Deficits, Oriented x 3 Psychiatric: Alert, Normal Affect, Normal Cognition, Normal Mood, Oriented Skin Exam: Warm, Dry, Intact, Normal color, No rash COURSE, BEHAVIORAL HEALTH COMP - Course Orders, Labs, Meds: Laboratory Tests 06/02/20 06/02/20 06/02/20 Range/Units 11:40 11:59 12:10 WBC 6.7 (4.0-11.0) K/uL RBC 4.56 (3.80-5.80) M/uL Hgb 14.1 (11.5-16.5) g/dL Hct 42.3 (37.0-47.0) % MCV 93 (76-96) fL MCH 30.9 (27.0-32.0) pg MCHC 33.3 (31.0-35.0) g/dL RDW 12.5 (11.0-16.0) % Plt Count 262 (150-500) K/uL MPV 9.6 (6.0-10.0) fL Neut % (Auto) 75.7 H (45.0-70.0) % Lymph % (Auto) 15.6 L (20.0-40.0) % Wharton % (Auto) 5.7 (3.0-10.0) % Eos % (Auto) 2.7 (1.0-5.0) % Baso % (Auto) 0.3 (0.0-0.5) % Neut # (Auto) 5.08 (2.00-7.50) K/uL Lymph # (Auto) 1.05 L (1.50-4.00) K/uL Wharton # (Auto) 0.38 (0.20-0.80) K/uL Eos # (Auto) 0.18 (0.04-0.40) K/uL Baso # (Auto) 0.02 (0.02-0.10) K/uL Sodium 137 (136-145) mmol/L Potassium 4.3 (3.5-5.1) mmol/L Chloride 100 (98-107) mmol/L Carbon Dioxide 26.5 (21.0-32.0) mmol/L Anion Gap 14.8 (5.0-15.0) mmol/L BUN 11 D (8-26) mg/dL Creatinine 0.70 D (0.55-1.02) mg/dL Est Cr Clr Drug Dosing TNP Estimated GFR (MDRD) > 60 (>60) MLS/MIN BUN/Creatinine Ratio 15.7 (6-25) Glucose 160 H (74-100) mg/dL Calcium 8.8 (8.5-10.1) mg/dL Total Bilirubin 0.7 (0.0-1.0) mg/dL AST 19 (15-37) U/L ALT 22 (12-78) U/L Alkaline Phosphatase 82 (46-116) U/L Total Protein 7.0 (6.4-8.2) g/dL Albumin 3.7 (3.4-5.0) g/dL Globulin 3.3 (2.2-4.2) g/dL Albumin/Globulin Ratio 1.1 (0.8-2.0) Urine Color Urine Appearance (CLEAR) Urine pH (5.0-8.0) Ur Specific Addison (1.003-1.030) Urine Protein (NEGATIVE) mg/dL Urine Glucose (UA) (NEGATIVE) mg/dL Urine Ketones (NEGATIVE) mg/dL Urine Occult Blood (NEGATIVE) Urine Nitrite (NEGATIVE) Urine Bilirubin (NEGATIVE) Urine Urobilinogen (0.2-1.0) E.U./dL Ur Leukocyte Esterase (NEGATIVE) Urine Opiates Screen Negative (NEGATIVE) Ur Oxycodone Screen Negative (NEGATIVE) Urine Methadone Screen Positive H (NEGATIVE) Ur Barbiturates Screen Negative (NEGATIVE) Ur Tricyclics Screen Negative (NEGATIVE) Ur Phencyclidine Scrn Negative (NEGATIVE) Ur Amphetamine Screen Negative (NEGATIVE) U Methamphetamines Scrn Negative (NEGATIVE) Urine MDMA Screen Negative (NEGATIVE) U Benzodiazepines Scrn Negative (NEGATIVE) U Cocaine Metab Screen Negative (NEGATIVE) U Marijuana (THC) Screen Negative (NEGATIVE) 06/02/20 Range/Units 12:20 WBC (4.0-11.0) K/uL RBC (3.80-5.80) M/uL Hgb (11.5-16.5) g/dL Hct (37.0-47.0) % MCV (76-96) fL MCH (27.0-32.0) pg MCHC (31.0-35.0) g/dL RDW (11.0-16.0) % Plt Count (150-500) K/uL MPV (6.0-10.0) fL Neut % (Auto) (45.0-70.0) % Lymph % (Auto) (20.0-40.0) % Wharton % (Auto) (3.0-10.0) % Eos % (Auto) (1.0-5.0) % Baso % (Auto) (0.0-0.5) % Neut # (Auto) (2.00-7.50) K/uL Lymph # (Auto) (1.50-4.00) K/uL Wharton # (Auto) (0.20-0.80) K/uL Eos # (Auto) (0.04-0.40) K/uL Baso # (Auto) (0.02-0.10) K/uL Sodium (136-145) mmol/L Potassium (3.5-5.1) mmol/L Chloride (98-107) mmol/L Carbon Dioxide (21.0-32.0) mmol/L Anion Gap (5.0-15.0) mmol/L BUN (8-26) mg/dL Creatinine (0.55-1.02) mg/dL Est Cr Clr Drug Dosing Estimated GFR (MDRD) (>60) MLS/MIN BUN/Creatinine Ratio (6-25) Glucose (74-100) mg/dL Calcium (8.5-10.1) mg/dL Total Bilirubin (0.0-1.0) mg/dL AST (15-37) U/L ALT (12-78) U/L Alkaline Phosphatase (46-116) U/L Total Protein (6.4-8.2) g/dL Albumin (3.4-5.0) g/dL Globulin (2.2-4.2) g/dL Albumin/Globulin Ratio (0.8-2.0) Urine Color Yellow Urine Appearance Clear (CLEAR) Urine pH 6.0 (5.0-8.0) Ur Specific Addison 1.020 (1.003-1.030) Urine Protein Negative (NEGATIVE) mg/dL Urine Glucose (UA) Negative (NEGATIVE) mg/dL Urine Ketones Negative (NEGATIVE) mg/dL Urine Occult Blood Negative (NEGATIVE) Urine Nitrite Negative (NEGATIVE) Urine Bilirubin Negative (NEGATIVE) Urine Urobilinogen 0.2 (0.2-1.0) E.U./dL Ur Leukocyte Esterase Negative (NEGATIVE) Urine Opiates Screen (NEGATIVE) Ur Oxycodone Screen (NEGATIVE) Urine Methadone Screen (NEGATIVE) Ur Barbiturates Screen (NEGATIVE) Ur Tricyclics Screen (NEGATIVE) Ur Phencyclidine Scrn (NEGATIVE) Ur Amphetamine Screen (NEGATIVE) U Methamphetamines Scrn (NEGATIVE) Urine MDMA Screen (NEGATIVE) U Benzodiazepines Scrn (NEGATIVE) U Cocaine Metab Screen (NEGATIVE) U Marijuana (THC) Screen (NEGATIVE) Medical Clearance: 06/02/20 12:55 Patient is medically cleared. All labs unremarkable. Departure - Departure Time of Disposition: 12:55 Disposition: DC/Tfer to Psych Hosp/Unit [facility] Condition: Good Clinical Impression: Hallucinations, Anxiety - Discharge Information *PRESCRIPTION DRUG MONITORING PROGRAM REVIEWED*: Not Applicable *COPY OF PRESCRIPTION DRUG MONITORING REPORT IN PATIENT EJ: Not Applicable - Assessment/Plan Plan: Patient is medically cleared and will meet with social work and staff for placement options.
== END 2020-06-02 14:00 | disposition home or self-care (01) ==
LOC: LB.ED 10:33
DX: R44.3 Hallucinations, unspecified (principal); F41.9 Anxiety disorder, unspecified; E78.00 Pure hypercholesterolemia, unspecified; I10 Essential (primary) hypertension; F32.9 Major depressive disorder, single episode, unspecified; Z91.040 Latex allergy status; Z88.5 Allergy status to narcotic agent; Z88.0 Allergy status to penicillin; Z79.82 Long term (current) use of aspirin; Z79.899 Other long term (current) drug therapy
CPT/HCPCS: 36415; 80053; 80307; 81003; 85025; 99285

== ENCOUNTER 2020-10-12 18:23 | Emergency (ER) | payer MEDICARE, MEDICAID ==
[2020-10-12 19:13] VITALS: BP 122/75; PULSE 99
--- NOTE | 2020-10-13 07:09 | ER ---
HISTORY OF PRESENT ILLNESS: An 85-year-old lady who is [facility] after they found her on the floor. She had been around staff within less than 30 minutes from the finding her on the floor. She had some obvious swelling and a little bit of bleeding above the left eye. No other injuries noted. The patient tells me that she has neck and right shoulder pain, but this has been going on for years, nothing new about it today. OBJECTIVE: GENERAL APPEARANCE: The patient is awake and alert. She is pleasant and talkative. VITAL SIGNS: Reviewed as listed. HEENT: Examining the patient's face reveals swelling involving the lateral side of the left eyebrow and just above it with a small abrasion/laceration. There is a little bit of dried blood around the wound, but no active bleeding. The area of swelling is roughly 2 cm in size. INITIAL TREATMENT PLAN: Nursing staff cleansed the wound and there is a small skin tear like laceration about a centimeter in length. Steri-Strips will be applied by nursing staff. I had the patient go through range of motion of her right shoulder and she states it hurts, but it is the same pain she has had for years. I can palpate the shoulder and there is no obvious areas that are more tender and the skin is intact. She has mild reduction in lateral rotation of the neck and tells me there is really no pain there today. She denies any other injuries. DIAGNOSIS: Contusion injury to forehead with a small skin tear. TREATMENT PLAN: The patient is to be monitored for any worsening of symptoms. The Steri- Strips should be able to be loosened on their own accord over the next few days; when they become loose, they can be removed. Staff is encouraged to monitor for any sign of infection and follow up is p.r.n. she can be given Tylenol for pain control. CRS/MODL /[id number]
== END 2020-10-12 19:20 ==
LOC: LB.ED 18:23
DX: S01.81XA Laceration without foreign body of other part of head, initial encounter (principal); M54.2 Cervicalgia; M25.511 Pain in right shoulder; W19.XXXA Unspecified fall, initial encounter
CPT/HCPCS: 99282; 99283

== ENCOUNTER 2020-12-12 13:30 | Emergency (ER) | payer MEDICARE, MEDICAID ==
[2020-12-12] MEDS: Acetaminophen 325 MG Tab PO ONE (13:50)
--- NOTE | 2020-12-12 13:54 | EDM.PDOC ---
ED HPI GENERAL MEDICAL PROBLEM - General Chief Complaint: General Stated Complaint: FALL Time Seen by Provider: 12/12/20 13:40 Source of Information: Reports: Patient, [facility] Records, RN History Limitations: Reports: No Limitations - History of Present Illness INITIAL COMMENTS - FREE TEXT/NARRATIVE: patient is a pleasant 85 yrs old F, who is a resident of the [place], presented to the ER for evaluation of after a fall and head injury. Reports that she was walking using her cane, but she tripped on her foot when she was trying to turn sideways, and landed on her face/ hitting the right forehead. No LOC. h/o arthritis of b/l hands and shoulders. On ASA 325mg, no other blood thinners. Denies headache, nausea or emesis. No CP or dizziness. 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 upon arrival to the ER, patient is alert and oriented. GCS 15. Onset: Sudden Duration: Minutes: (30) Location: Reports: Face Quality: Reports: Ache Severity: Mild Improves with: Reports: Cold Therapy Worsens with: Reports: None Associated Symptoms: Reports: No Other Symptoms Right Shoulder Pain Score (Numeric/FACES): 6 - Related Data Allergies Allergy/AdvReac Type Severity Reaction Status Date / Time latex Allergy Unknown Hives Verified 12/12/20 13:45 morphine Allergy Nausea and Verified 12/12/20 13:45 Vomiting Penicillins Allergy Cannot Verified 12/12/20 13:45 Remember meperidine HCl [From Demerol] AdvReac Nausea Verified 12/12/20 13:45 tramadol AdvReac Nausea and Verified 12/12/20 13:45 Vomiting Home Meds: Home Meds pindoloL [Pindolol] 10 mg PO BID 04/23/13 [History] Fluticasone Propionate [Flonase] 1 spray NASBOTH QPM 11/13/18 [History] Mv-Min/Iron/Folic/Calcium/Vitk [Women's Multivitamin Tablet] 0.5 each PO DAILY 11/13/18 [History] rOPINIRole [Requip] 0.25 mg PO BEDTIME tablet 11/27/18 [Rx] Melatonin 3 mg PO BEDTIME 12/06/18 [History] atorvaSTATin [Lipitor] 20 mg PO BEDTIME 12/06/18 [History] Aspirin 81 mg PO DAILY 12/13/18 [History] dilTIAZem HCL [Cartia Xt] 120 mg PO DAILY 12/13/18 [History] Acetaminophen 750 mg PO BID 12/19/18 [History] diphenhydrAMINE [Benadryl] 25 mg PO BID PRN 12/19/18 [History] FLUoxetine [PROzac] 20 mg PO BID 06/02/20 [History] Acetaminophen/Caffeine [Excedrin Tension Headache] 1 - 2 tab PO Q12HR PRN 12/12/20 [History] Ascorbic Acid [Vitamin C] 500 mg PO DAILY 12/12/20 [History] Loratadine [Claritin] 10 mg PO BEDTIME 12/12/20 [History] Menthol [Biofreeze] 1 applic TP Q4HR PRN 12/12/20 [History] Multivits w-Min/Ferrous Gluc [Cerovite Liquid] 0.5 tab PO DAILY 12/12/20 [History] Naproxen 1 tab PO Q12HR PRN 12/12/20 [History] Pantoprazole Sodium [Protonix] 40 mg PO DAILY 12/12/20 [History] Ramelteon 8 mg PO BEDTIME 12/12/20 [History] atorvaSTATin [Lipitor] 20 mg PO BEDTIME 12/12/20 [History] Past Medical History HEENT History: Reports: Impaired Vision Cardiovascular History: Reports: High Cholesterol, Hypertension, Other (See Below) Other Cardiovascular History: Right carotid stenosis Genitourinary History: Reports: Urinary Incontinence Musculoskeletal History: Reports: Back Pain, Chronic, Osteoarthritis, Other (See Below) 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 Neurological History: Reports: Headaches, Chronic, Other (See Below) 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 Psychiatric History: Reports: Depression - Infectious Disease History Infectious Disease History: Reports: Chicken Pox, Measles, Rubella - Past Surgical History HEENT Surgical History: Reports: Visual Other HEENT Surgeries/Procedures: wears glasses Cardiovascular Surgical History: Reports: Carotid Endarterectomy Other Cardiovascular Surgeries/Procedures: endarterectomy 12/18/18 Neurological Surgical History: Reports: None Social & Family History - Family History Family Medical History: No Pertinent Family History - Caffeine Use Caffeine Use: Reports: Coffee Other Caffeine Use: unknown - Living Situation & Occupation Living situation: Reports: , Other Occupation: Retired ED ROS GENERAL - Review of Systems Review Of Systems: See Below Constitutional: Reports: No Symptoms HEENT: Reports: No Symptoms Respiratory: Reports: No Symptoms Cardiovascular: Reports: No Symptoms GI/Abdominal: Reports: No Symptoms Skin: Reports: No Symptoms Neurological: Reports: No Symptoms Psychiatric: Reports: Anxiety ED EXAM, GENERAL - Physical Exam Exam: See Below Free Text/Narrative:: GCS 15 Exam Limited By: No Limitations General Appearance: Alert, WD/WN, No Apparent Distress Eye Exam: Bilateral Eye: EOMI, PERRL Nose: Normal Inspection Head: Other (there a bruise/goosepumo to the right eyebrow. no active bleeding) Neck: Normal Inspection, Supple, Non-Tender, Full Range of Motion Respiratory/Chest: No Respiratory Distress, Lungs Clear, Chest Non-Tender Cardiovascular: Normal Peripheral Pulses GI/Abdominal: Soft, Non-Tender Extremities: Normal Inspection, Normal Range of Motion, Limited Range of Motion (right shoulder - which is at baseline for her) Neurological: Alert, Oriented, Normal Cognition, No Motor/Sensory Deficits Psychiatric: Normal Affect Course - Vital Signs Last Recorded V/S: Last Vital Signs Temp 36.4 C 12/12/20 13:30 Pulse 64 12/12/20 13:30 Resp 16 12/12/20 13:30 BP 108/65 12/12/20 13:30 Pulse Ox 98 12/12/20 13:30 - Orders/Labs/Meds Orders: Active Orders 24 hr Category Date Time Status Head wo Cont [CT] Stat Exams 12/12/20 13:47 Ordered Humerus Rt [CR] Stat Exams 12/12/20 13:47 Ordered Shoulder Comp Rt [CR] Stat Exams 12/12/20 13:47 Ordered Meds: Medications Discontinued Medications Generic Name Dose Route Start Last Admin Trade Name Iamq PRN Reason Stop Dose Admin Acetaminophen 650 mg 12/12/20 13:47 12/12/20 13:50 Acetaminophen 325 Mg Tab PO 12/12/20 13:48 650 mg NOW ONE Administration - Re-Assessments/Exams Free Text/Narrative Re-Assessment/Exam: CT head wo contrast - no acute pathology or bleeding xrays - shoulder and humerus ( R )- no e/o acute fracture, but severe arthritis chronic changes pain control with Tylenol PO Departure - Departure Time of Disposition: 14:36 Disposition: Home, Self-Care 01 Condition: Good Clinical Impression: Contusion, shoulder /upper arm Head contusion Qualifiers: Encounter type: initial encounter Contusion of head detail: eyelid Laterality: right Qualified Code(s): S00.11XA - Contusion of right eyelid and periocular area, initial encounter - Discharge Information *PRESCRIPTION DRUG MONITORING PROGRAM REVIEWED*: Not Applicable *COPY OF PRESCRIPTION DRUG MONITORING REPORT IN PATIENT EJ: Not Applicable Forms: ED Department Discharge Sepsis Event Note (ED) - Focused Exam Vital Signs: Vital Signs Temp Pulse Resp BP Pulse Ox 12/12/20 13:30 36.4 C 64 16 108/65 98 - Problem List & Annotations (1) Contusion, shoulder /upper arm SNOMED Code(s): 41849294 Code(s): PMW9247 - Status: Acute Priority: Low (2) Head contusion SNOMED Code(s): 255186457 Code(s): S00.93XA - CONTUSION OF UNSPECIFIED PART OF HEAD, INITIAL ENCOUNTER Status: Acute Priority: Low Qualifiers: Encounter type: initial encounter Contusion of head detail: eyelid Laterality: right Qualified Code(s): S00.11XA - Contusion of right eyelid and periocular area, initial encounter - Problem List Review Problem List Initiated/Reviewed/Updated: Yes - My Orders Last 24 Hours: My Active Orders 12/12/20 13:47 Head wo Cont [CT] Stat Humerus Rt [CR] Stat Shoulder Comp Rt [CR] Stat - Assessment/Plan Last 24 Hours: My Active Orders 12/12/20 13:47 Head wo Cont [CT] Stat Humerus Rt [CR] Stat Shoulder Comp Rt [CR] Stat Plan: - ice the affected facial area - at least 20 min every hour - tylenol for pain as needed - return to the ER if any concerns
[2020-12-12 13:55] VITALS: BP 108/65; PULSE 64
--- NOTE | 2020-12-13 09:09 | CT ---
Date of Service: 12/12/20 Clinical Data: fall/ head injury UNENHANCED BRAIN CT: Multislice axial acquisition was performed. Comparison was made to a prior exam dated 12/06/18. There is diffuse cerebral atrophy. There are extensive periventricular lucencies bilaterally consistent with small vessel ischemic change. No masses or mass effect. No intracranial hemorrhage. No evidence of acute or subacute infarct. There is preseptal soft tissue swelling on the right. There is also soft tissue swelling of the scalp adjacent to the frontal bone on the right. No fractures. IMPRESSION: No acute intracranial abnormalities. [id number] [facility]
--- NOTE | 2020-12-13 09:14 | CR ---
Date of Service: 12/12/20 Clinical Data: fall RIGHT HUMERUS: There is diffuse osteopenia. There are osteoarthritic changes of the AC and glenohumeral joints. The subacromial space is narrowed suggesting a chronic rotator cuff tendon injury. No acute fracture or dislocation. No focal lytic or blastic bone lesions. [id number] [facility]
== END 2020-12-12 14:43 | disposition home or self-care (01) ==
LOC: LB.ED 13:30
DX: S00.11XA Contusion of right eyelid and periocular area, initial encounter (principal); S40.011A Contusion of right shoulder, initial encounter; E78.00 Pure hypercholesterolemia, unspecified; I10 Essential (primary) hypertension; Z79.899 Other long term (current) drug therapy; Z79.82 Long term (current) use of aspirin; W01.0XXA Fall on same level from slipping, tripping and stumbling without subsequent striking against object, initial encounter
CPT/HCPCS: 70450; 73060; 99284; A9270; 99282

== ENCOUNTER 2021-03-04 15:31 | Emergency (ER) | payer MEDICARE, MEDICAID ==
[2021-03-04 15:46] VITALS: BP 110/59; PULSE 77
--- NOTE | 2021-03-04 16:54 | EDM.PDOC ---
ED HPI GENERAL MEDICAL PROBLEM - General Chief Complaint: Head Injury Stated Complaint: HEAD INJURY/FALL Time Seen by Provider: 03/04/21 15:40 - History of Present Illness INITIAL COMMENTS - FREE TEXT/NARRATIVE: Pt fell at the correction hitting the back of her head. She denies any pain or visual changes. She tells me she feels fine, except for some old aches and pains. She is quite talkative. - Related Data Allergies Allergy/AdvReac Type Severity Reaction Status Date / Time latex Allergy Unknown Hives Verified 12/12/20 13:45 morphine Allergy Nausea and Verified 12/12/20 13:45 Vomiting Penicillins Allergy Cannot Verified 12/12/20 13:45 Remember meperidine HCl [From Demerol] AdvReac Nausea Verified 12/12/20 13:45 tramadol AdvReac Nausea and Verified 12/12/20 13:45 Vomiting Home Meds: Home Meds pindoloL [Pindolol] 5 mg PO BID 04/23/13 [History] Fluticasone Propionate [Flonase] 1 spray NASBOTH QPM 11/13/18 [History] Mv-Min/Iron/Folic/Calcium/Vitk [Women's Multivitamin Tablet] 0.5 each PO DAILY 11/13/18 [History] rOPINIRole [Requip] 0.25 mg PO BEDTIME tablet 11/27/18 [Rx] Melatonin 3 mg PO BEDTIME 12/06/18 [History] atorvaSTATin [Lipitor] 20 mg PO BEDTIME 12/06/18 [History] Aspirin 81 mg PO DAILY 12/13/18 [History] dilTIAZem HCL [Cartia Xt] 120 mg PO DAILY 12/13/18 [History] Acetaminophen 750 mg PO BID PRN 12/19/18 [History] diphenhydrAMINE [Benadryl] 25 mg PO BID PRN 12/19/18 [History] FLUoxetine [PROzac] 20 mg PO BID 06/02/20 [History] Acetaminophen/Caffeine [Excedrin Tension Headache] 1 - 2 tab PO Q12HR PRN 12/12/20 [History] Ascorbic Acid [Vitamin C] 500 mg PO DAILY 12/12/20 [History] Loratadine [Claritin] 10 mg PO BEDTIME 12/12/20 [History] Menthol [Biofreeze] 1 applic TP Q4HR PRN 12/12/20 [History] Multivits w-Min/Ferrous Gluc [Cerovite Liquid] 0.5 tab PO DAILY 12/12/20 [History] Naproxen 1 tab PO Q12HR PRN 12/12/20 [History] Pantoprazole Sodium [Protonix] 40 mg PO DAILY 12/12/20 [History] Ramelteon 8 mg PO BEDTIME 12/12/20 [History] atorvaSTATin [Lipitor] 20 mg PO BEDTIME 12/12/20 [History] Past Medical History HEENT History: Reports: Hard of Hearing, Impaired Vision Cardiovascular History: Reports: High Cholesterol, Hypertension, Other (See Below) Other Cardiovascular History: Right carotid stenosis Genitourinary History: Reports: Urinary Incontinence Musculoskeletal History: Reports: Back Pain, Chronic, Osteoarthritis, Other (See Below) 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 Neurological History: Reports: Headaches, Chronic, Other (See Below) 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 Psychiatric History: Reports: Depression, Hallucinations - Infectious Disease History Infectious Disease History: Reports: Chicken Pox, Measles, Rubella - Past Surgical History HEENT Surgical History: Reports: Visual Other HEENT Surgeries/Procedures: wears glasses Cardiovascular Surgical History: Reports: Carotid Endarterectomy Other Cardiovascular Surgeries/Procedures: endarterectomy 12/18/18 Neurological Surgical History: Reports: None Social & Family History - Family History Family Medical History: No Pertinent Family History - Caffeine Use Caffeine Use: Reports: Coffee Other Caffeine Use: unknown - Recreational Drug Use Recreational Drug Use: No - Living Situation & Occupation Living situation: Reports: , Other Occupation: Retired ED ROS GENERAL - Review of Systems Review Of Systems: Comprehensive ROS is negative, except as noted in HPI. Neurological: Reports: Other (Fall.) ED EXAM, HEAD INJURY - Physical Exam Exam: See Below Text/Narrative:: Pt is awake and alert, very talkative. Examining her head reveals no sign of injury, swelling or discoloration. EOM's are grossly intact. Neck is supple with good ROM. Skin is warm and dry. Course - Vital Signs Last Recorded V/S: Last Vital Signs Temp 97.7 F 03/04/21 15:32 Pulse 77 03/04/21 15:44 Resp 18 03/04/21 15:44 BP 110/59 L 03/04/21 15:44 Pulse Ox 98 03/04/21 15:44 - Re-Assessments/Exams Free Text/Narrative Re-Assessment/Exam: 03/04/21 16:53 Pt is doing well. She can return to the correction. Monitor her for any changes. Follow up as needed. Departure - Departure Time of Disposition: 16:00 Disposition: DC/[facility]fer to [facility] Condition: Good Clinical Impression: Fall Qualifiers: Encounter type: initial encounter Qualified Code(s): W19.XXXA - Unspecified fall, initial encounter - Discharge Information *PRESCRIPTION DRUG MONITORING PROGRAM REVIEWED*: Not Applicable *COPY OF PRESCRIPTION DRUG MONITORING REPORT IN PATIENT EJ: Not Applicable Instructions: Head Injury, Adult Referrals: Kendall Diaz MD [Primary Care Provider] - Forms: ED Department Discharge Care Plan Goals: Return to ER as needed. Sepsis Event Note (ED) - Evaluation Sepsis Screening Result: No Definite Risk - Focused Exam Vital Signs: Vital Signs Temp Pulse Resp BP Pulse Ox 03/04/21 15:44 77 18 110/59 L 98 03/04/21 15:32 97.7 F 69 18 104/63 98
== END 2021-03-04 15:59 ==
LOC: LB.ED 15:31
DX: Z04.3 Encounter for examination and observation following other accident (principal); W19.XXXA Unspecified fall, initial encounter; Y92.129 Unspecified place in nursing home as the place of occurrence of the external cause; I10 Essential (primary) hypertension; M19.90 Unspecified osteoarthritis, unspecified site; Z79.01 Long term (current) use of anticoagulants; Z91.040 Latex allergy status; Z88.6 Allergy status to analgesic agent; Z88.0 Allergy status to penicillin; Z88.5 Allergy status to narcotic agent; Z79.02 Long term (current) use of antithrombotics/antiplatelets; Z79.818 Long term (current) use of other agents affecting estrogen receptors and estrogen levels; Z86.73 Personal history of transient ischemic attack (TIA), and cerebral infarction without residual deficits; Z79.82 Long term (current) use of aspirin; E78.00 Pure hypercholesterolemia, unspecified
CPT/HCPCS: 99283

== ENCOUNTER 2021-03-05 13:01 | Emergency (ER) | payer MEDICARE, MEDICAID ==
[2021-03-05 15:15] VITALS: BP 107/65; PULSE 58
--- NOTE | 2021-03-06 09:34 | CT ---
Date of Service: 03/05/21 Clinical Data: fall UNENHANCED BRAIN CT: Multislice acquisition through the brain without IV contrast was performed. No priors. There is diffuse atrophy. There are periventricular lucencies bilaterally consistent with small vessel ischemic change. There are lucencies in the basal ganglia bilaterally consistent with old lacunar infarcts. No masses or mass effect. No intracranial hemorrhage. No evidence of acute or subacute infarct. No fractures. IMPRESSION: No acute intracranial abnormalities. [id number] [facility]
--- NOTE | 2021-03-09 23:06 | EDM.PDOC ---
ED HPI GENERAL MEDICAL PROBLEM - General Chief Complaint: Neuro Symptoms/Deficits Stated Complaint: Fall with head injury Time Seen by Provider: 03/05/21 13:30 Source of Information: Reports: Patient History Limitations: Reports: No Limitations - History of Present Illness INITIAL COMMENTS - FREE TEXT/NARRATIVE: a resident [facility] - fell and hit her head yesterday - no LOC. No N/V. been sleepy today - unusual for her. her nursing staff - wanted to recheck on her - to make sure she is fine. - Related Data Allergies Allergy/AdvReac Type Severity Reaction Status Date / Time latex Allergy Unknown Hives Verified 03/05/21 15:05 morphine Allergy Nausea and Verified 03/05/21 15:05 Vomiting Penicillins Allergy Cannot Verified 03/05/21 15:05 Remember meperidine HCl [From Demerol] AdvReac Nausea Verified 03/05/21 15:05 tramadol AdvReac Nausea and Verified 03/05/21 15:05 Vomiting Home Meds: Home Meds pindoloL [Pindolol] 5 mg PO BID 04/23/13 [History] Fluticasone Propionate [Flonase] 1 spray NASBOTH QPM 11/13/18 [History] Mv-Min/Iron/Folic/Calcium/Vitk [Women's Multivitamin Tablet] 0.5 each PO DAILY 11/13/18 [History] rOPINIRole [Requip] 0.25 mg PO BEDTIME tablet 11/27/18 [Rx] Melatonin 3 mg PO BEDTIME 12/06/18 [History] atorvaSTATin [Lipitor] 20 mg PO BEDTIME 12/06/18 [History] Aspirin 81 mg PO DAILY 12/13/18 [History] dilTIAZem HCL [Cartia Xt] 120 mg PO DAILY 12/13/18 [History] Acetaminophen 750 mg PO BID PRN 12/19/18 [History] diphenhydrAMINE [Benadryl] 25 mg PO BID PRN 12/19/18 [History] FLUoxetine [PROzac] 20 mg PO BID 06/02/20 [History] Acetaminophen/Caffeine [Excedrin Tension Headache] 1 - 2 tab PO Q12HR PRN 12/12/20 [History] Ascorbic Acid [Vitamin C] 500 mg PO DAILY 12/12/20 [History] Loratadine [Claritin] 10 mg PO BEDTIME 12/12/20 [History] Menthol [Biofreeze] 1 applic TP Q4HR PRN 12/12/20 [History] Multivits w-Min/Ferrous Gluc [Cerovite Liquid] 0.5 tab PO DAILY 12/12/20 [History] Naproxen 1 tab PO Q12HR PRN 12/12/20 [History] Pantoprazole Sodium [Protonix] 40 mg PO DAILY 12/12/20 [History] Ramelteon 8 mg PO BEDTIME 12/12/20 [History] atorvaSTATin [Lipitor] 20 mg PO BEDTIME 12/12/20 [History] Past Medical History HEENT History: Reports: Hard of Hearing, Impaired Vision Cardiovascular History: Reports: High Cholesterol, Hypertension, Other (See Below) Other Cardiovascular History: Right carotid stenosis Genitourinary History: Reports: Urinary Incontinence Musculoskeletal History: Reports: Back Pain, Chronic, Osteoarthritis, Other (See Below) 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 Neurological History: Reports: Headaches, Chronic, Other (See Below) 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 Psychiatric History: Reports: Depression, Hallucinations - Infectious Disease History Infectious Disease History: Reports: Chicken Pox, Measles, Rubella - Past Surgical History HEENT Surgical History: Reports: Visual Other HEENT Surgeries/Procedures: wears glasses Cardiovascular Surgical History: Reports: Carotid Endarterectomy Other Cardiovascular Surgeries/Procedures: endarterectomy 12/18/18 Neurological Surgical History: Reports: None Social & Family History - Family History Family Medical History: No Pertinent Family History - Caffeine Use Caffeine Use: Reports: Coffee Other Caffeine Use: unknown - Recreational Drug Use Recreational Drug Use: No - Living Situation & Occupation Living situation: Reports: , Other Occupation: Retired ED ROS GENERAL - Review of Systems Review Of Systems: See Below Constitutional: Reports: No Symptoms Respiratory: Reports: No Symptoms Cardiovascular: Reports: No Symptoms GI/Abdominal: Reports: No Symptoms Skin: Reports: No Symptoms Neurological: Reports: No Symptoms Psychiatric: Reports: No Symptoms ED EXAM, NEURO - Physical Exam Exam: See Below Exam Limited By: No Limitations General Appearance: Alert, WD/WN, No Apparent Distress Eye Exam: Bilateral Eye: EOMI, PERRL Respiratory/Chest: No Respiratory Distress Cardiovascular: Normal Peripheral Pulses GI/Abdominal: Normal Bowel Sounds Neurological: Alert, Normal Mood/Affect, Normal Gait, No Motor/Sensory Deficits Course - Vital Signs Last Recorded V/S: Last Vital Signs Temp 36.2 C 03/05/21 15:14 Pulse 58 L 03/05/21 15:14 Resp 16 03/05/21 15:14 BP 107/65 03/05/21 15:14 Pulse Ox 96 03/05/21 15:14 - Re-Assessments/Exams Free Text/Narrative Re-Assessment/Exam: CT head - WNL Departure - Departure Time of Disposition: 13:55 Disposition: Home, Self-Care 01 Condition: Good Clinical Impression: Head injury Qualifiers: Encounter type: initial encounter Qualified Code(s): S09.90XA - Unspecified injury of head, initial encounter - Discharge Information *PRESCRIPTION DRUG MONITORING PROGRAM REVIEWED*: Not Applicable *COPY OF PRESCRIPTION DRUG MONITORING REPORT IN PATIENT EJ: Not Applicable Forms: ED Department Discharge Care Plan Goals: follow up as needed Sepsis Event Note (ED) - Evaluation Sepsis Screening Result: No Definite Risk - Problem List & Annotations (1) Head injury SNOMED Code(s): 17278352 Code(s): S09.90XA - UNSPECIFIED INJURY OF HEAD, INITIAL ENCOUNTER Status: Acute Priority: Low Qualifiers: Encounter type: initial encounter Qualified Code(s): S09.90XA - Unspecified injury of head, initial encounter - Problem List Review Problem List Initiated/Reviewed/Updated: Yes - Assessment/Plan Plan: - continue to monitor - resume home meds as before
== END 2021-03-05 16:15 | disposition home or self-care (01) ==
LOC: LB.ED 13:01
DX: S09.90XA Unspecified injury of head, initial encounter (principal); E78.00 Pure hypercholesterolemia, unspecified; I10 Essential (primary) hypertension; Z86.73 Personal history of transient ischemic attack (TIA), and cerebral infarction without residual deficits; Z91.040 Latex allergy status; Z88.0 Allergy status to penicillin; Z79.82 Long term (current) use of aspirin; Z88.5 Allergy status to narcotic agent; W18.09XA Striking against other object with subsequent fall, initial encounter
CPT/HCPCS: 70450; 99282; 99283-25

== ENCOUNTER 2021-03-15 18:53 | Emergency (ER) | payer MEDICARE, MEDICAID ==
--- NOTE | 2021-03-15 20:34 | EDM.PDOC ---
ED HPI GENERAL MEDICAL PROBLEM - General Chief Complaint: Head Injury Stated Complaint: fall Time Seen by Provider: 03/15/21 19:10 - History of Present Illness INITIAL COMMENTS - FREE TEXT/NARRATIVE: Pt is brought over from the [facility] after falling. Staff heard her cane fall and then noticed she was on the floor. She had a scrape with swelling develop on her forehead and was somewhat confused per staff. No other injuries noted. Left Head Pain Score (Numeric/FACES): 6 - Related Data Allergies Allergy/AdvReac Type Severity Reaction Status Date / Time latex Allergy Unknown Hives Verified 03/15/21 19:37 morphine Allergy Nausea and Verified 03/15/21 19:37 Vomiting Penicillins Allergy Cannot Verified 03/15/21 19:37 Remember meperidine HCl [From Demerol] AdvReac Nausea Verified 03/15/21 19:37 tramadol AdvReac Nausea and Verified 03/15/21 19:37 Vomiting Home Meds: Home Meds pindoloL [Pindolol] 5 mg PO BID 04/23/13 [History] Fluticasone Propionate [Flonase] 1 spray NASBOTH QPM 11/13/18 [History] Mv-Min/Iron/Folic/Calcium/Vitk [Women's Multivitamin Tablet] 0.5 each PO DAILY 11/13/18 [History] rOPINIRole [Requip] 0.25 mg PO BEDTIME tablet 11/27/18 [Rx] Melatonin 3 mg PO BEDTIME 12/06/18 [History] Aspirin 81 mg PO DAILY 12/13/18 [History] dilTIAZem HCL [Cartia Xt] 120 mg PO DAILY 12/13/18 [History] Acetaminophen 750 mg PO BID PRN 12/19/18 [History] diphenhydrAMINE [Benadryl] 25 mg PO BID PRN 12/19/18 [History] FLUoxetine [PROzac] 20 mg PO BID 06/02/20 [History] Acetaminophen/Caffeine [Excedrin Tension Headache] 1 - 2 tab PO Q12HR PRN 12/12/20 [History] Ascorbic Acid [Vitamin C] 500 mg PO DAILY 12/12/20 [History] Loratadine [Claritin] 10 mg PO BEDTIME 12/12/20 [History] Menthol [Biofreeze] 1 applic TP Q4HR PRN 12/12/20 [History] Multivits w-Min/Ferrous Gluc [Cerovite Liquid] 0.5 tab PO DAILY 12/12/20 [History] Naproxen 1 tab PO Q12HR PRN 12/12/20 [History] Pantoprazole Sodium [Protonix] 40 mg PO DAILY 12/12/20 [History] Ramelteon 8 mg PO BEDTIME 12/12/20 [History] atorvaSTATin [Lipitor] 20 mg PO BEDTIME 12/12/20 [History] Past Medical History HEENT History: Reports: Hard of Hearing, Impaired Vision Cardiovascular History: Reports: High Cholesterol, Hypertension, Other (See Below) Other Cardiovascular History: Right carotid stenosis Genitourinary History: Reports: Urinary Incontinence Musculoskeletal History: Reports: Back Pain, Chronic, Osteoarthritis, Other (See Below) 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 Neurological History: Reports: Headaches, Chronic, Other (See Below) 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 Psychiatric History: Reports: Depression, Hallucinations - Infectious Disease History Infectious Disease History: Reports: Chicken Pox, Measles, Rubella - Past Surgical History HEENT Surgical History: Reports: Visual Other HEENT Surgeries/Procedures: wears glasses Cardiovascular Surgical History: Reports: Carotid Endarterectomy Other Cardiovascular Surgeries/Procedures: endarterectomy 12/18/18 Neurological Surgical History: Reports: None Social & Family History - Family History Family Medical History: No Pertinent Family History - Caffeine Use Caffeine Use: Reports: Coffee Other Caffeine Use: unknown - Living Situation & Occupation Living situation: Reports: , Other Occupation: Retired ED ROS GENERAL - Review of Systems Review Of Systems: Comprehensive ROS is negative, except as noted in HPI. Musculoskeletal: Reports: Other (bruise to forehead.) ED EXAM, HEAD INJURY - Physical Exam Exam: See Below Head: Scalp Abrasions, Scalp Hematoma Eyes: Bilateral Eye: EOMI Course - Vital Signs Last Recorded V/S: Last Vital Signs Temp 97.1 F 03/15/21 19:07 Pulse 65 03/15/21 19:21 Resp 16 03/15/21 19:21 BP 131/66 03/15/21 19:21 Pulse Ox 96 03/15/21 19:21 - Orders/Labs/Meds Orders: Active Orders 24 hr Category Date Time Status Head wo Cont [CT] Stat Exams 03/15/21 19:19 Taken - Radiology Interpretation Free Text/Narrative:: Head CT is negative for any acute injuries. - Re-Assessments/Exams Free Text/Narrative Re-Assessment/Exam: 03/15/21 20:32 Pt has been talkative, mostly to herself which is nml for her. She will be sent back to [facility]TC to be monitored. Apply ice to forehead frequently for 1 day. OTC Tylenol as needed for pain. Departure - Departure Time of Disposition: 20:10 Disposition: DC/Tfer to Custodial Care 63 Condition: Good Clinical Impression: Head injury Qualifiers: Encounter type: initial encounter Qualified Code(s): S09.90XA - Unspecified injury of head, initial encounter - Discharge Information *PRESCRIPTION DRUG MONITORING PROGRAM REVIEWED*: Not Applicable *COPY OF PRESCRIPTION DRUG MONITORING REPORT IN PATIENT EJ: Not Applicable Referrals: PCP,None [Primary Care Provider] - Sepsis Event Note (ED) - Evaluation Sepsis Screening Result: No Definite Risk - Focused Exam Vital Signs: Vital Signs Temp Pulse Resp BP Pulse Ox 03/15/21 19:21 65 16 131/66 96 03/15/21 19:07 97.1 F 66 16 99/58 L 96 - My Orders Last 24 Hours: My Active Orders 03/15/21 19:19 Head wo Cont [CT] Stat - Assessment/Plan Last 24 Hours: My Active Orders 03/15/21 19:19 Head wo Cont [CT] Stat
[2021-03-15 21:54] VITALS: BP 99/58; PULSE 665
--- NOTE | 2021-03-16 08:09 | CT ---
Date of Service: 03/15/21 Clinical Data: fall with hematoma on forehead. ? Confusion. UNENHANCED BRAIN CT: Multislice acquisition through the brain without IV contrast was performed. Comparison is made to a prior exam dated 03/05/21. There is mild atrophy. There are periventricular lucencies bilaterally consistent with small vessel ischemic change. No masses or mass effect. No intracranial hemorrhage. No evidence of acute or subacute infarct. No fractures. IMPRESSION: No acute intracranial abnormalities. [id number] [facility]
== END 2021-03-15 20:45 ==
LOC: LB.ED 18:53
DX: S00.03XA Contusion of scalp, initial encounter (principal); E78.00 Pure hypercholesterolemia, unspecified; I10 Essential (primary) hypertension; M19.90 Unspecified osteoarthritis, unspecified site; Z91.040 Latex allergy status; Z88.5 Allergy status to narcotic agent; Z88.0 Allergy status to penicillin; Z79.82 Long term (current) use of aspirin; Z79.899 Other long term (current) drug therapy; W18.30XA Fall on same level, unspecified, initial encounter; Y92.129 Unspecified place in nursing home as the place of occurrence of the external cause
CPT/HCPCS: 70450; 99282; 99283-25

== ENCOUNTER 2021-04-19 18:00 | Emergency (ER) | payer MEDICARE, MEDICAID ==
--- NOTE | 2021-04-19 18:25 | EDM.PDOC ---
ED HPI GENERAL MEDICAL PROBLEM - General Chief Complaint: Trauma Stated Complaint: FALL HIT HEAD Time Seen by Provider: 04/19/21 18:20 Source of Information: Reports: Patient, [facility] Records History Limitations: Reports: No Limitations - History of Present Illness INITIAL COMMENTS - FREE TEXT/NARRATIVE: patient in the ER from the [facility] for evaluation after a fall down and a head injury. Per reports, she tripped on her way the dining room and landed on her face from a standing position. No LOC. She is not on blood thinners. She was able to get up but complaining of pain to the left wrist and slight pain where the injury/bruise in the forehead area is. Denies nausea/emesis, no vision problems., no weakness or numbness. Upon arrival to the ER, she is alert and oriented, GCS 15. Onset: Sudden Duration: Minutes: (30) Location: Reports: Face - Related Data Allergies Allergy/AdvReac Type Severity Reaction Status Date / Time latex Allergy Unknown Hives Verified 03/15/21 19:37 morphine Allergy Nausea and Verified 03/15/21 19:37 Vomiting Penicillins Allergy Cannot Verified 03/15/21 19:37 Remember meperidine HCl [From Demerol] AdvReac Nausea Verified 03/15/21 19:37 tramadol AdvReac Nausea and Verified 03/15/21 19:37 Vomiting Home Meds: Home Meds pindoloL [Pindolol] 5 mg PO BID 04/23/13 [History] Fluticasone Propionate [Flonase] 1 spray NASBOTH QPM 11/13/18 [History] Mv-Min/Iron/Folic/Calcium/Vitk [Women's Multivitamin Tablet] 0.5 each PO DAILY 11/13/18 [History] rOPINIRole [Requip] 0.25 mg PO BEDTIME tablet 11/27/18 [Rx] Melatonin 3 mg PO BEDTIME 12/06/18 [History] Aspirin 81 mg PO DAILY 12/13/18 [History] dilTIAZem HCL [Cartia Xt] 120 mg PO DAILY 12/13/18 [History] Acetaminophen 750 mg PO BID PRN 12/19/18 [History] diphenhydrAMINE [Benadryl] 25 mg PO BID PRN 12/19/18 [History] FLUoxetine [PROzac] 20 mg PO BID 06/02/20 [History] Acetaminophen/Caffeine [Excedrin Tension Headache] 1 - 2 tab PO Q12HR PRN 12/12/20 [History] Ascorbic Acid [Vitamin C] 500 mg PO DAILY 12/12/20 [History] Loratadine [Claritin] 10 mg PO BEDTIME 12/12/20 [History] Menthol [Biofreeze] 1 applic TP Q4HR PRN 12/12/20 [History] Multivits w-Min/Ferrous Gluc [Cerovite Liquid] 0.5 tab PO DAILY 12/12/20 [History] Naproxen 1 tab PO Q12HR PRN 12/12/20 [History] Pantoprazole Sodium [Protonix] 40 mg PO DAILY 12/12/20 [History] Ramelteon 8 mg PO BEDTIME 12/12/20 [History] atorvaSTATin [Lipitor] 20 mg PO BEDTIME 12/12/20 [History] Past Medical History HEENT History: Reports: Hard of Hearing, Impaired Vision Cardiovascular History: Reports: High Cholesterol, Hypertension, Other (See Below) Other Cardiovascular History: Right carotid stenosis Genitourinary History: Reports: Urinary Incontinence Musculoskeletal History: Reports: Back Pain, Chronic, Osteoarthritis, Other (See Below) 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 Neurological History: Reports: Headaches, Chronic, Other (See Below) 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 Psychiatric History: Reports: Depression, Hallucinations - Infectious Disease History Infectious Disease History: Reports: Chicken Pox, Measles, Rubella - Past Surgical History HEENT Surgical History: Reports: Visual Other HEENT Surgeries/Procedures: wears glasses Cardiovascular Surgical History: Reports: Carotid Endarterectomy Other Cardiovascular Surgeries/Procedures: endarterectomy 12/18/18 Neurological Surgical History: Reports: None Social & Family History - Family History Family Medical History: No Pertinent Family History - Caffeine Use Caffeine Use: Reports: Coffee Other Caffeine Use: unknown - Living Situation & Occupation Living situation: Reports: , Other Occupation: Retired Review of Systems - Review of Systems Review Of Systems: See Below Constitutional: Reports: No Symptoms Respiratory: Reports: No Symptoms Cardiovascular: Reports: No Symptoms Musculoskeletal: Reports: No Symptoms Skin: Reports: No Symptoms Neurological: Reports: No Symptoms ED EXAM, GENERAL - Physical Exam Exam: See Below Exam Limited By: No Limitations General Appearance: Alert, WD/WN, No Apparent Distress Eye Exam: Bilateral Eye: EOMI, PERRL Head: Other (left sided facial bruising) Neck: Normal Inspection, Non-Tender, Full Range of Motion Respiratory/Chest: No Respiratory Distress, Lungs Clear Cardiovascular: Normal Peripheral Pulses, Regular Rate, Rhythm Back Exam: Normal Inspection Extremities: Normal Inspection, Normal Range of Motion, Non-Tender, Limited Range of Motion (let wrist due to pain), Other Course - Vital Signs Last Recorded V/S: Last Vital Signs Temp 36.7 C 04/19/21 18:15 Pulse 67 04/19/21 18:15 Resp 16 04/19/21 18:15 BP 134/67 04/19/21 18:15 Pulse Ox 96 04/19/21 18:15 - Orders/Labs/Meds Orders: Active Orders 24 hr Category Date Time Status Cervical Spine wo Cont [CT] Stat Exams 04/19/21 18:19 Taken Head wo Cont [CT] Stat Exams 04/19/21 18:19 Taken Wrist Comp Min 3V Lt [CR] Stat Exams 04/19/21 18:19 Taken - Re-Assessments/Exams Free Text/Narrative Re-Assessment/Exam: 04/19/21 18:25 CT head - no acute findings. no bleeding CT cervical spine - no acute fractures, but severe arthritic changes xray left wrist - severe arthritis changes, and old healed fractures, no acute findings forehead wound was washed and cleaned - local abx was applied, as well as, a sterile dressing a ready-made wrist splint was applied on the left side Departure - Departure Time of Disposition: 19:31 Disposition: Home, Self-Care 01 Condition: Good Clinical Impression: Contusion, shoulder /upper arm Contusion of wrist, left Qualifiers: Encounter type: initial encounter Qualified Code(s): S60.212A - Contusion of left wrist, initial encounter Head injury Qualifiers: Encounter type: initial encounter Qualified Code(s): S09.90XA - Unspecified injury of head, initial encounter - Discharge Information *PRESCRIPTION DRUG MONITORING PROGRAM REVIEWED*: Not Applicable *COPY OF PRESCRIPTION DRUG MONITORING REPORT IN PATIENT EJ: Not Applicable Instructions: Head Injury, Adult, Head Injury, Adult, [id number] Forms: ED Department Discharge Sepsis Event Note (ED) - Focused Exam Vital Signs: Vital Signs Temp Pulse Resp BP Pulse Ox 04/19/21 18:15 36.7 C 67 16 134/67 96 - Problem List & Annotations (1) Contusion, shoulder /upper arm SNOMED Code(s): 26111412 Code(s): CVD4318 - Status: Acute Priority: Low (2) Fall SNOMED Code(s): 4080993, 435109769 Code(s): W19.XXXA - UNSPECIFIED FALL, INITIAL ENCOUNTER Status: Acute Priority: Low Qualifiers: Encounter type: initial encounter Qualified Code(s): W19.XXXA - Unspecified fall, initial encounter (3) Head injury SNOMED Code(s): 15453932 Code(s): S09.90XA - UNSPECIFIED INJURY OF HEAD, INITIAL ENCOUNTER Status: Acute Priority: Low Qualifiers: Encounter type: initial encounter Qualified Code(s): S09.90XA - Unspecified injury of head, initial encounter (4) Contusion of wrist, left SNOMED Code(s): 45309266073803297 Code(s): S60.212A - CONTUSION OF LEFT WRIST, INITIAL ENCOUNTER Status: Acute Priority: Low Qualifiers: Encounter type: initial encounter Qualified Code(s): S60.212A - Contusion of left wrist, initial encounter - Problem List Review Problem List Initiated/Reviewed/Updated: Yes - My Orders Last 24 Hours: My Active Orders 04/19/21 18:19 Cervical Spine wo Cont [CT] Stat Head wo Cont [CT] Stat Wrist Comp Min 3V Lt [CR] Stat - Assessment/Plan Last 24 Hours: My Active Orders 04/19/21 18:19 Cervical Spine wo Cont [CT] Stat Head wo Cont [CT] Stat Wrist Comp Min 3V Lt [CR] Stat Plan: - keep wrist in a splint - Tyelnol for pain as needed - apply antibiotics ointment on the wound 1-2 daily - change dressing daily until it heals 4-7 days - return to the ER if change in behavior or any concerns
[2021-04-19 18:39] VITALS: BP 134/67; PULSE 67
--- NOTE | 2021-04-20 08:59 | CT ---
DATE OF SERVICE: 04/19/21 CLINICAL DATA: fell down UNENHANCED BRAIN CT: Multislice acquisition through the brain without IV contrast was performed. Comparison is made to a prior exam date 03/15/21. There is diffuse atrophy. There are periventricular lucencies bilaterally consistent with small vessel ischemic change. No masses. No intracranial hemorrhage. No evidence of acute or subacute infarct. There is soft tissue swelling of the scalp in the left frontal and left anterior parietal region. No underlying fracture. IMPRESSION: No acute intracranial abnormalities. [id number] [facility]
--- NOTE | 2021-04-20 09:02 | CR ---
DATE OF SERVICE: 04/19/21 CLINICAL DATA: fell down LEFT WRIST: There is diffuse osteopenia. There are osteoarthritic changes involving multiple joints. There is a large subchondral cyst within the distal ulna. There is chondrocalcinosis in multiple joints. I do not see an acute fracture or dislocation. [id number] [facility]
--- NOTE | 2021-04-20 09:06 | CT ---
DATE OF SERVICE: 04/19/21 CLINICAL DATA: fell down CERVICAL SPINE CT: Multislice axial acquisition was performed. Axial images and sagittal and coronal reformations are reviewed. The vertebral bodies are of average height. No acute fracture or dislocation. There is slight anterolisthesis of C3 on C4, C4 on C5, and C5 on C6. There is degenerative disc disease with disc space narrowing throughout the cervical spine. There is facet joint hypertrophy throughout the cervical spine. There is foraminal stenosis at multiple levels bilaterally. No other significant findings. [id number] [facility]
== END 2021-04-19 19:39 | disposition home or self-care (01) ==
LOC: LB.ED 18:00
DX: S60.212A Contusion of left wrist, initial encounter (principal); S40.012A Contusion of left shoulder, initial encounter; S00.83XA Contusion of other part of head, initial encounter; S09.90XA Unspecified injury of head, initial encounter; E78.00 Pure hypercholesterolemia, unspecified; I10 Essential (primary) hypertension; M19.90 Unspecified osteoarthritis, unspecified site; Z86.73 Personal history of transient ischemic attack (TIA), and cerebral infarction without residual deficits; Z91.040 Latex allergy status; Z88.5 Allergy status to narcotic agent; Z88.0 Allergy status to penicillin; Z79.82 Long term (current) use of aspirin; Z79.899 Other long term (current) drug therapy; W01.0XXA Fall on same level from slipping, tripping and stumbling without subsequent striking against object, initial encounter
CPT/HCPCS: 70450; 72125; 73110-LT; 99284-25

== ENCOUNTER 2021-05-22 19:45 | Emergency (ER) | payer MEDICARE, MEDICAID ==
[2013-06-20 08:18] VITALS: BP 127/72
[2021-05-22] MEDS ORDERED: Haloperidol Lactate 5 MG/ML SDV ONE (20:37)
--- NOTE | 2021-05-22 21:41 | EDM.PDOCBH ---
ED HPI GENERAL MEDICAL PROBLEM - General Chief Complaint: Behavioral/Psych Stated Complaint: PSYCH Time Seen by Provider: 05/22/21 20:36 Source of Information: Reports: [facility] Records, RN History Limitations: Reports: No Limitations - History of Present Illness INITIAL COMMENTS - FREE TEXT/NARRATIVE: patient from the [place] with a known h/o dementia and hallucinations. who presented to the ER due to worsening of her symptoms. Per reports, she was seeing her ( who is ) in her room and also was seeing other people and animals. No suicidal ideations or aggressive behavior. She is already on Seroquel 50mg daily for those symptoms. no fever, no GI symptoms. no N/V/D. Onset: Gradual Duration: Hour(s): (12) - Related Data Allergies Allergy/AdvReac Type Severity Reaction Status Date / Time latex Allergy Unknown Hives Verified 03/15/21 19:37 morphine Allergy Nausea and Verified 03/15/21 19:37 Vomiting Penicillins Allergy Cannot Verified 03/15/21 19:37 Remember meperidine HCl [From Demerol] AdvReac Nausea Verified 03/15/21 19:37 tramadol AdvReac Nausea and Verified 03/15/21 19:37 Vomiting Home Meds: Home Meds pindoloL [Pindolol] 5 mg PO BID 04/23/13 [History] Fluticasone Propionate [Flonase] 1 spray NASBOTH QPM 11/13/18 [History] Mv-Min/Iron/Folic/Calcium/Vitk [Women's Multivitamin Tablet] 0.5 each PO DAILY 11/13/18 [History] rOPINIRole [Requip] 0.25 mg PO BEDTIME tablet 11/27/18 [Rx] Melatonin 3 mg PO BEDTIME 12/06/18 [History] Aspirin 81 mg PO DAILY 12/13/18 [History] dilTIAZem HCL [Cartia Xt] 120 mg PO DAILY 12/13/18 [History] Acetaminophen 750 mg PO BID PRN 12/19/18 [History] diphenhydrAMINE [Benadryl] 25 mg PO BID PRN 12/19/18 [History] FLUoxetine [PROzac] 20 mg PO BID 06/02/20 [History] Acetaminophen/Caffeine [Excedrin Tension Headache] 1 - 2 tab PO Q12HR PRN 12/12/20 [History] Ascorbic Acid [Vitamin C] 500 mg PO DAILY 12/12/20 [History] Loratadine [Claritin] 10 mg PO BEDTIME 12/12/20 [History] Menthol [Biofreeze] 1 applic TP Q4HR PRN 12/12/20 [History] Multivits w-Min/Ferrous Gluc [Cerovite Liquid] 0.5 tab PO DAILY 12/12/20 [History] Naproxen 1 tab PO Q12HR PRN 12/12/20 [History] Pantoprazole Sodium [Protonix] 40 mg PO DAILY 12/12/20 [History] Ramelteon 8 mg PO BEDTIME 12/12/20 [History] atorvaSTATin [Lipitor] 20 mg PO BEDTIME 12/12/20 [History] Acetaminophen/Codeine [Tylenol with Codeine No.3 300MG/30MG] 1 tab PO Q6H PRN #12 tab 04/19/21 [Rx] Past Medical History HEENT History: Reports: Hard of Hearing, Impaired Vision Cardiovascular History: Reports: High Cholesterol, Hypertension, Other (See Below) Other Cardiovascular History: Right carotid stenosis Genitourinary History: Reports: Urinary Incontinence Musculoskeletal History: Reports: Back Pain, Chronic, Osteoarthritis, Other (See Below) 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 Neurological History: Reports: Headaches, Chronic, Other (See Below) 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 Psychiatric History: Reports: Depression, Hallucinations - Infectious Disease History Infectious Disease History: Reports: Chicken Pox, Measles, Rubella - Past Surgical History HEENT Surgical History: Reports: Visual Other HEENT Surgeries/Procedures: wears glasses Cardiovascular Surgical History: Reports: Carotid Endarterectomy Other Cardiovascular Surgeries/Procedures: endarterectomy 12/18/18 Neurological Surgical History: Reports: None Social & Family History - Family History Family Medical History: No Pertinent Family History - Caffeine Use Caffeine Use: Reports: Coffee Other Caffeine Use: unknown - Living Situation & Occupation Living situation: Reports: , Other Occupation: Retired ED ROS GENERAL - Review of Systems Review Of Systems: See Below Constitutional: Reports: No Symptoms HEENT: Reports: No Symptoms Respiratory: Reports: No Symptoms Cardiovascular: Reports: No Symptoms GI/Abdominal: Reports: No Symptoms Musculoskeletal: Reports: No Symptoms Skin: Reports: No Symptoms Psychiatric: Reports: Hallucinations ED EXAM, BEHAVIORAL HEALTH - Physical Exam Exam: See Below Exam Limited By: No Limitations (cooperative) General Appearance: Alert, WD/WN, No Apparent Distress Head: Atraumatic Respiratory/Chest: No Respiratory Distress, Lungs Clear Cardiovascular: Regular Rate, Rhythm GI/Abdominal: Normal Bowel Sounds Neurological: Alert, Normal Mood/Affect, No Motor/Sensory Deficits, Oriented x 3 Psychiatric: Alert, Normal Affect COURSE, BEHAVIORAL HEALTH COMP - Course Orders, Labs, Meds: Laboratory Tests 05/22/21 05/22/21 05/22/21 Range/Units 20:46 20:46 21:05 WBC 4.5 D (4.0-11.0) K/uL RBC 4.10 (3.80-5.80) M/uL Hgb 12.7 (11.5-16.5) g/dL Hct 38.3 (37.0-47.0) % MCV 93 (76-96) fL MCH 31.0 (27.0-32.0) pg MCHC 33.2 (31.0-35.0) g/dL RDW 13.0 (11.0-16.0) % Plt Count 210 (150-500) K/uL MPV 9.7 (6.0-10.0) fL Sodium 137 (136-145) mmol/L Potassium 3.7 (3.5-5.1) mmol/L Chloride 104 (98-107) mmol/L Carbon Dioxide 26.9 (21.0-32.0) mmol/L Anion Gap 9.8 (5.0-15.0) mmol/L BUN 15 (8-26) mg/dL Creatinine 0.58 (0.55-1.02) mg/dL Est Cr Clr Drug Dosing TNP Estimated GFR (MDRD) > 60 (>60) MLS/MIN BUN/Creatinine Ratio 25.9 H (6-25) Glucose 165 H D (74-100) mg/dL Calcium 8.5 (8.5-10.1) mg/dL Urine Color Yellow Urine Appearance Clear (CLEAR) Urine pH 6.0 (5.0-8.0) Ur Specific [place] >= 1.030 (1.003-1.030) Urine Protein Negative (NEGATIVE) mg/dL Urine Glucose (UA) Negative (NEGATIVE) mg/dL Urine Ketones Negative (NEGATIVE) mg/dL Urine Occult Blood Negative (NEGATIVE) Urine Nitrite Negative (NEGATIVE) Urine Bilirubin Negative (NEGATIVE) Urine Urobilinogen 0.2 (0.2-1.0) E.U./dL Ur Leukocyte Esterase Negative (NEGATIVE) Discharge vs Psych Eval/Treatment:: was given Haldol 3mg IM prior to arrival to the ER - which helped alot with her symptoms. she is much calmer now and not hallucinating anymore. labs were ordered including CBC, BMP and UA -- all WNL, no signs of UTIs. Departure - Departure Time of Disposition: 21:41 Disposition: Home, Self-Care 01 Condition: Good Clinical Impression: Hallucinations - Discharge Information *PRESCRIPTION DRUG MONITORING PROGRAM REVIEWED*: Not Applicable *COPY OF PRESCRIPTION DRUG MONITORING REPORT IN PATIENT EJ: Not Applicable Instructions: Psychosis Referrals: PCP,None [Primary Care Provider] - Forms: ED Department Discharge Additional Instructions: - Increase Seroquel to 25mg TID ( up from BID ) - increase fluids intake - follow up with your PCP in 1-2 weeks as needed Sepsis Event Note (ED) - Evaluation Sepsis Screening Result: No Definite Risk - Problem List & Annotations (1) Hallucinations SNOMED Code(s): 4290367 Code(s): R44.3 - HALLUCINATIONS, UNSPECIFIED Status: Acute Priority: Medium - Problem List Review Problem List Initiated/Reviewed/Updated: Yes - Assessment/Plan Plan: - Increase Seroquel to 25mg TID ( up from BID ) - increase fluids intake - follow up with your PCP in 1-2 weeks as needed
[2021-05-22] MEDS ORDERED: QUEtiapine 25 MG Tab ONE (21:42)
== END 2021-05-22 21:32 | disposition home or self-care (01) ==
LOC: LB.ED 19:45
DX: R44.3 Hallucinations, unspecified (principal); I10 Essential (primary) hypertension; E78.00 Pure hypercholesterolemia, unspecified; Z88.5 Allergy status to narcotic agent; Z88.0 Allergy status to penicillin; Z88.8 Allergy status to other drugs, medicaments and biological substances; Z79.82 Long term (current) use of aspirin; Z79.899 Other long term (current) drug therapy; Z91.040 Latex allergy status
CPT/HCPCS: 36415; 80048; 81003; 85027; 99284; J1630

== ENCOUNTER 2021-07-21 10:13 | Emergency (ER) | payer MEDICARE, MEDICAID ==
[2021-07-21 10:28] VITALS: BP 95/53; PULSE 59
--- NOTE | 2021-07-21 11:27 | EDM.PDOC ---
ED HPI GENERAL MEDICAL PROBLEM - General Chief Complaint: Head Injury Stated Complaint: FALL Time Seen by Provider: 07/21/21 10:20 Source of Information: Reports: Patient, Correction Records, RN Notes Reviewed History Limitations: Reports: No Limitations - History of Present Illness INITIAL COMMENTS - FREE TEXT/NARRATIVE: This patient presents to the emergency room for evaluation following a fall. She is a senior care resident and was in her room when she fell backwards, striking her head. She had no loss of consciousness with this. She has no open injury with this. Patient denies any concerns or complaints. Headache Pain Score (Numeric/FACES): 2 - Related Data Allergies Allergy/AdvReac Type Severity Reaction Status Date / Time latex Allergy Unknown Hives Verified 07/21/21 10:20 morphine Allergy Nausea and Verified 07/21/21 10:20 Vomiting Penicillins Allergy Cannot Verified 07/21/21 10:20 Remember meperidine HCl [From Demerol] AdvReac Nausea Verified 07/21/21 10:20 tramadol AdvReac Nausea and Verified 07/21/21 10:20 Vomiting Home Meds: Home Meds pindoloL [Pindolol] 5 mg PO BID 04/23/13 [History] Fluticasone Propionate [Flonase] 1 spray NASBOTH QPM 11/13/18 [History] Mv-Min/Iron/Folic/Calcium/Vitk [Women's Multivitamin Tablet] 0.5 each PO DAILY 11/13/18 [History] rOPINIRole [Requip] 0.25 mg PO BEDTIME tablet 11/27/18 [Rx] Melatonin 3 mg PO BEDTIME 12/06/18 [History] Aspirin 81 mg PO DAILY 12/13/18 [History] dilTIAZem HCL [Cartia Xt] 120 mg PO DAILY 12/13/18 [History] Acetaminophen 750 mg PO BID PRN 12/19/18 [History] diphenhydrAMINE [Benadryl] 25 mg PO BID PRN 12/19/18 [History] FLUoxetine [PROzac] 20 mg PO BID 06/02/20 [History] Acetaminophen/Caffeine [Excedrin Tension Headache] 1 - 2 tab PO Q12HR PRN 12/12/20 [History] Ascorbic Acid [Vitamin C] 500 mg PO DAILY 12/12/20 [History] Loratadine [Claritin] 10 mg PO BEDTIME 12/12/20 [History] Menthol [Biofreeze] 1 applic TP Q4HR PRN 12/12/20 [History] Multivits w-Min/Ferrous Gluc [Cerovite Liquid] 0.5 tab PO DAILY 12/12/20 [History] Naproxen 1 tab PO Q12HR PRN 12/12/20 [History] Pantoprazole Sodium [Protonix] 40 mg PO DAILY 12/12/20 [History] Ramelteon 8 mg PO BEDTIME 12/12/20 [History] atorvaSTATin [Lipitor] 20 mg PO BEDTIME 12/12/20 [History] Acetaminophen/Codeine [Tylenol with Codeine No.3 300MG/30MG] 1 tab PO Q6H PRN #12 tab 04/19/21 [Rx] Past Medical History HEENT History: Reports: Hard of Hearing, Impaired Vision Cardiovascular History: Reports: High Cholesterol, Hypertension, Other (See Below) Other Cardiovascular History: Right carotid stenosis Genitourinary History: Reports: Urinary Incontinence Musculoskeletal History: Reports: Back Pain, Chronic, Osteoarthritis, Other (See Below) 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 Neurological History: Reports: Headaches, Chronic, Other (See Below) 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 Psychiatric History: Reports: Depression, Hallucinations - Infectious Disease History Infectious Disease History: Reports: Chicken Pox, Measles, Rubella - Past Surgical History HEENT Surgical History: Reports: Visual Other HEENT Surgeries/Procedures: wears glasses Cardiovascular Surgical History: Reports: Carotid Endarterectomy Other Cardiovascular Surgeries/Procedures: endarterectomy 12/18/18 Neurological Surgical History: Reports: None Social & Family History - Family History Family Medical History: No Pertinent Family History - Tobacco Use Tobacco Use Status *Q: Unknown Ever Used Tobacco Second Hand Smoke Exposure: No - Caffeine Use Caffeine Use: Reports: Coffee Other Caffeine Use: unknown - Recreational Drug Use Recreational Drug Use: No - Living Situation & Occupation Living situation: Reports: , Other Occupation: Retired ED ROS GENERAL - Review of Systems Review Of Systems: Comprehensive ROS is negative, except as noted in HPI. ED EXAM, HEAD INJURY - Physical Exam Exam: See Below Exam Limited By: No Limitations General Appearance: Alert, No Apparent Distress Head: Atraumatic, Normocephalic. No: Scalp Lacerations, Scalp Swelling, Scalp Abrasions, Scalp Hematoma, Scalp Tenderness Nexus Criteria: No: Posterior, Midline Cervical Tenderness, Evidence of Intoxication, Altered Level of Consciousness, Focal Neurological Deficit, Painful Distraction Injuries Eyes: Bilateral Eye: EOMI, PERRL Ears: Normal External Exam Nose: Normal Inspection Throat/Mouth: Normal Inspection Neck: Non-Tender, Full Range of Motion, Normal Inspection Respiratory: No Respiratory Distress, Lungs Clear, Normal Breath Sounds, No Accessory Muscle Use Course - Vital Signs Last Recorded V/S: Last Vital Signs Temp 36.1 C 07/21/21 10:20 Pulse 59 L 07/21/21 10:20 Resp 16 07/21/21 10:20 BP 95/53 L 07/21/21 10:20 Pulse Ox 96 07/21/21 10:20 - Orders/Labs/Meds Orders: Active Orders 24 hr Category Date Time Status Head wo Cont [CT] Stat Exams 07/21/21 10:32 Taken - Re-Assessments/Exams Free Text/Narrative Re-Assessment/Exam: This patient presents to the emergency department for evaluation following a head injury. She is neurologically intact with Bryant Tana fundi, normal gait and intact responses. There is no pronator drift and she is acting normally at her baseline. Her C-spine was clinically cleared with no midline tenderness and she does have full range of motion with no radiculopathy. A head CT was obtained which was normal for acute findings. History and clinical findings th erefore most consistent with close head trauma. She should use ibuprofen or Tylenol as needed for discomfort or headache and follow-up with her primary care provider as needed. The patient was stable at the time she was returned to the assisted facility. 07/21/21 11:42 Departure - Departure Time of Disposition: 11:25 Disposition: Home, Self-Care 01 Condition: Good Clinical Impression: Fall - Discharge Information *PRESCRIPTION DRUG MONITORING PROGRAM REVIEWED*: Not Applicable *COPY OF PRESCRIPTION DRUG MONITORING REPORT IN PATIENT EJ: Not Applicable Instructions: Fall Prevention in Hospitals, Adult Referrals: Kendall Diaz MD [Primary Care Provider] - Forms: ED Department Discharge Additional Instructions: Follow up with your primary care provider as needed. Sepsis Event Note (ED) - Evaluation Sepsis Screening Result: No Definite Risk - Focused Exam Vital Signs: Vital Signs Temp Pulse Resp BP Pulse Ox 07/21/21 10:20 36.1 C 59 L 16 95/53 L 96 - My Orders Last 24 Hours: My Active Orders 07/21/21 10:32 Head wo Cont [CT] Stat - Assessment/Plan Last 24 Hours: My Active Orders 07/21/21 10:32 Head wo Cont [CT] Stat
--- NOTE | 2021-07-21 16:01 | CT ---
DATE OF SERVICE: 07/21/2021 CLINICAL DATA: Fall Unenhanced brain CT: Multi slice axial acquisition was performed. Comparison is made to a prior exam dated 19 April 2021. There is diffuse atrophy. There are extensive periventricular lucencies bilaterally consistent with small vessel ischemic change. The no masses or mass effect. No intracranial hemorrhage. No evidence of acute or subacute infarct. No significant changes from the prior study. Impression: No acute intracranial abnormalities. MTDD
== END 2021-07-21 11:31 | disposition home or self-care (01) ==
LOC: LB.ED 10:13
DX: S09.90XA Unspecified injury of head, initial encounter (principal); E78.00 Pure hypercholesterolemia, unspecified; I10 Essential (primary) hypertension; M19.90 Unspecified osteoarthritis, unspecified site; Z79.899 Other long term (current) drug therapy; Z88.0 Allergy status to penicillin; Z88.5 Allergy status to narcotic agent; Z91.040 Latex allergy status; W18.09XA Striking against other object with subsequent fall, initial encounter; Y92.129 Unspecified place in nursing home as the place of occurrence of the external cause
CPT/HCPCS: 70450; 99284-25

== ENCOUNTER 2021-09-05 13:54 | Emergency (ER) | payer MEDICARE, MEDICAID ==
[2021-09-05 14:20] VITALS: BP 105/57; PULSE 65
== END 2021-09-05 14:35 | disposition home or self-care (01) ==
LOC: LB.ED 13:54
DX: S00.212A Abrasion of left eyelid and periocular area, initial encounter (principal); E78.00 Pure hypercholesterolemia, unspecified; I10 Essential (primary) hypertension; M19.90 Unspecified osteoarthritis, unspecified site; Z86.73 Personal history of transient ischemic attack (TIA), and cerebral infarction without residual deficits; Z88.0 Allergy status to penicillin; Z88.5 Allergy status to narcotic agent; Z91.040 Latex allergy status; Z79.82 Long term (current) use of aspirin; Z79.899 Other long term (current) drug therapy; W18.30XA Fall on same level, unspecified, initial encounter
CPT/HCPCS: 99283

== ENCOUNTER 2021-10-29 20:25 | Emergency (ER) | payer MEDICARE, MEDICAID ==
[2021-10-29] MEDS ORDERED: Haloperidol 1 MG Tab ONE (20:45)
[2021-10-29] MEDS ORDERED: Haloperidol 1 MG Tab PO SCH (20:50)
[2021-10-29 20:55] VITALS: BP 133/83; PULSE 61
[2021-10-30] MEDS ORDERED: Haloperidol 1 MG Tab PO SCH (20:00)
== END 2021-10-29 21:50 ==
LOC: LB.ED 20:25
DX: R44.1 Visual hallucinations (principal); R45.1 Restlessness and agitation; E78.00 Pure hypercholesterolemia, unspecified; I10 Essential (primary) hypertension; M19.90 Unspecified osteoarthritis, unspecified site; Z86.73 Personal history of transient ischemic attack (TIA), and cerebral infarction without residual deficits; Z88.0 Allergy status to penicillin; Z88.5 Allergy status to narcotic agent; Z91.040 Latex allergy status; Z79.82 Long term (current) use of aspirin; Z79.899 Other long term (current) drug therapy
CPT/HCPCS: 99283; 99285; A9270

== ENCOUNTER 2021-11-22 09:39 | Emergency (ER) | payer MEDICARE, MEDICAID ==
[2021-11-22] MEDS ORDERED: Acetaminophen/Codeine 300-30 MG Tab PO ONE (09:54)
[2021-11-22 10:43] VITALS: BP 139/69; PULSE 58
== END 2021-11-22 11:17 | disposition home or self-care (01) ==
LOC: LB.ED 09:39
DX: S00.03XA Contusion of scalp, initial encounter (principal); E78.00 Pure hypercholesterolemia, unspecified; I10 Essential (primary) hypertension; Z79.82 Long term (current) use of aspirin; Z79.899 Other long term (current) drug therapy; Z88.0 Allergy status to penicillin; Z88.8 Allergy status to other drugs, medicaments and biological substances; W19.XXXA Unspecified fall, initial encounter
CPT/HCPCS: 36415; 70450; 72125; 80048; 85025; 99282; 99284-25; A9270-GY

== ENCOUNTER 2021-11-25 16:25 | Emergency (ER) | payer MEDICARE, MEDICAID ==
[2021-11-25 18:26] VITALS: BP 110/60; PULSE 76
== END 2021-11-25 18:15 ==
LOC: LB.ED 16:25
DX: F03.90 Unspecified dementia, unspecified severity, without behavioral disturbance, psychotic disturbance, mood disturbance, and anxiety (principal); R45.1 Restlessness and agitation; E78.00 Pure hypercholesterolemia, unspecified; I10 Essential (primary) hypertension; M19.90 Unspecified osteoarthritis, unspecified site; Z91.040 Latex allergy status; Z88.5 Allergy status to narcotic agent; Z88.0 Allergy status to penicillin; Z79.82 Long term (current) use of aspirin; Z79.899 Other long term (current) drug therapy
CPT/HCPCS: 36415; 80048; 83605; 85025; 99284

== ENCOUNTER 2021-11-27 05:00 | Emergency (ER) | payer MEDICARE, MEDICAID ==
[2021-11-27] MEDS: rOPINIRole 0.25 MG Tab PO ONE (06:04)
[2021-11-27 10:25] VITALS: BP 116/65; PULSE 68
== END 2021-11-27 06:20 ==
LOC: LB.ED 05:00
DX: R45.1 Restlessness and agitation (principal); G25.81 Restless legs syndrome; E78.00 Pure hypercholesterolemia, unspecified; I10 Essential (primary) hypertension; Z86.73 Personal history of transient ischemic attack (TIA), and cerebral infarction without residual deficits; Z79.899 Other long term (current) drug therapy; Z79.82 Long term (current) use of aspirin; Z88.0 Allergy status to penicillin; Z91.040 Latex allergy status; Z88.6 Allergy status to analgesic agent; Z88.5 Allergy status to narcotic agent
CPT/HCPCS: 99285; A9270-GY

== ENCOUNTER 2021-12-29 00:22 | Emergency (ER) | payer MEDICARE, MEDICAID ==
[2021-12-29 00:50] VITALS: BP 158/82; PULSE 69
== END 2021-12-29 01:05 ==
LOC: LB.ED 00:22
DX: M25.551 Pain in right hip (principal); E78.00 Pure hypercholesterolemia, unspecified; I10 Essential (primary) hypertension; M19.90 Unspecified osteoarthritis, unspecified site; Z86.73 Personal history of transient ischemic attack (TIA), and cerebral infarction without residual deficits; Z91.040 Latex allergy status; Z88.0 Allergy status to penicillin; Z88.5 Allergy status to narcotic agent; Z79.82 Long term (current) use of aspirin; Z79.899 Other long term (current) drug therapy
CPT/HCPCS: 73502-RT; 99282; 99284

== ENCOUNTER 2022-03-10 12:09 | Emergency (ER) | payer MEDICARE, MEDICAID ==
[2022-03-10] MEDS: Aspirin 81 MG Tab.Chew PO ONE (12:15)
[2022-03-10] MEDS ORDERED: Sodium Chloride 0.9% 10 ML Syringe FLUSH PRN (12:27)
[2022-03-10] MEDS: Ondansetron 4 MG/2 ML SDV IVPUSH ONE (12:57)
[2022-03-10 13:10] VITALS: BP 111/63; PULSE 64
[2022-03-10 13:12] LABS: ESTIMATED GFR 86 mL/min (>60); TROPONIN I HIGH SENSITIVITY 13.9 pg/ml (<=60.4)
[2022-03-10] MEDS: Sodium Chloride 0.9% 250 ML IV SCH (13:45)
[2022-03-13] MEDS: Ondansetron 4 MG/2 ML SDV ONE (08:31)
== END 2022-03-10 15:00 ==
LOC: LB.ED 12:09
DX: R10.13 Epigastric pain (principal); E78.00 Pure hypercholesterolemia, unspecified; I10 Essential (primary) hypertension; M19.90 Unspecified osteoarthritis, unspecified site; Z86.73 Personal history of transient ischemic attack (TIA), and cerebral infarction without residual deficits; Z91.040 Latex allergy status; Z88.5 Allergy status to narcotic agent; Z88.0 Allergy status to penicillin; Z79.82 Long term (current) use of aspirin; Z79.899 Other long term (current) drug therapy
CPT/HCPCS: 36415; 80053; 83735; 84484; 85025; 93005; 96361; 96374; 99285; A9270; J2405; J7050; 99282

== ENCOUNTER 2022-12-14 20:51 | Emergency (ER) | payer MEDICARE, MEDICAID ==
[2022-12-14 21:00] VITALS: BP 110/70; PULSE 64
== END 2022-12-14 21:55 ==
LOC: LB.ED 20:51
DX: M25.552 Pain in left hip (principal); I10 Essential (primary) hypertension; E78.00 Pure hypercholesterolemia, unspecified; M19.90 Unspecified osteoarthritis, unspecified site; Z91.040 Latex allergy status; Z88.5 Allergy status to narcotic agent; Z88.0 Allergy status to penicillin; Z79.899 Other long term (current) drug therapy; Z79.82 Long term (current) use of aspirin; W19.XXXA Unspecified fall, initial encounter; Y92.89 Other specified places as the place of occurrence of the external cause
CPT/HCPCS: 73502-LT; 99283

== ENCOUNTER 2023-04-04 05:53 | Emergency (ER) | payer MEDICARE, MEDICAID ==
[2023-04-04] MEDS ORDERED: traMADol 50 MG Tab PO ONE ×2 (06:21→06:45)
[2023-04-04 08:09] VITALS: BP 139/69; PULSE 60
== END 2023-04-04 08:20 ==
LOC: LB.ED 05:53
DX: S51.812A Laceration without foreign body of left forearm, initial encounter (principal); S00.11XA Contusion of right eyelid and periocular area, initial encounter; E78.00 Pure hypercholesterolemia, unspecified; I10 Essential (primary) hypertension; Z86.73 Personal history of transient ischemic attack (TIA), and cerebral infarction without residual deficits; Z91.040 Latex allergy status; Z88.0 Allergy status to penicillin; Z88.5 Allergy status to narcotic agent; Z88.8 Allergy status to other drugs, medicaments and biological substances; Z79.899 Other long term (current) drug therapy; Z79.82 Long term (current) use of aspirin; W18.09XA Striking against other object with subsequent fall, initial encounter
CPT/HCPCS: 70450; 72125; 99283; A9270-GY

== ENCOUNTER 2024-04-25 21:21 | Inpatient (IN) | payer MEDICARE, MEDICAID ==
[2024-04-25] MEDS ORDERED: Morphine 2 MG/ML SYRINGE IVPUSH ONE (22:46)
[2024-04-25] MEDS ORDERED: Sodium Chloride 0.9% 10 ML Syringe FLUSH PRN (23:37)
[2024-04-25] MEDS: Ondansetron 4 MG/2 ML SDV IVPUSH ONE (23:53)
[2024-04-25] MEDS ORDERED: Docusate Sodium 100 MG Cap PO PRN (23:56)
[2024-04-25] MEDS: Morphine 2 MG/ML SYRINGE IVPUSH ONE (23:56)
[2024-04-26] MEDS ORDERED: DICLOFENAC SODIUM TOP PRN
[2024-04-26] MEDS ORDERED: Morphine 2 MG/ML SYRINGE IVPUSH PRN (00:02)
[2024-04-26] MEDS: Ondansetron 4 MG/2 ML SDV ONE (00:03)
[2024-04-26] MEDS: Morphine 2 MG/ML SYRINGE ONE (00:48)
[2024-04-26] MEDS: Ondansetron 4 MG Tab.DIS PO ONE (00:49)
[2024-04-26] MEDS ORDERED: [UNRECOGNIZED DRUG - OTHER] PO PRN (00:55)
[2024-04-26] MEDS: traMADol 50 MG Tab PO PRN (01:21)
[2024-04-26] MEDS: LORazepam 2 MG/ML SDV IVPUSH PRN (02:33)
[2024-04-26] MEDS ORDERED: Non-Formulary Medication 1 Each (Calcium Carbonate/Vitamin D3 [Calcium 600-Vit D3 400 Tabl PO SCH (08:00)
[2024-04-26] MEDS ORDERED: [UNRECOGNIZED DRUG - OTHER] PO SCH (08:00)
[2024-04-26] MEDS ORDERED: CARBIDOPA PO SCH (08:00)
[2024-04-26] MEDS ORDERED: LEVODOPA PO SCH (08:00)
[2024-04-26] MEDS ORDERED: POLYVINYL ALCOHOL OP SCH (08:00)
[2024-04-26] MEDS: Pindolol 10 MG Tab PO SCH (08:15)
[2024-04-26] MEDS: Morphine 2 MG/ML SYRINGE IVPUSH PRN (08:31)
[2024-04-26] MEDS: Lidocaine 5% 700 MG Patch TOP SCH (08:43)
[2024-04-26] MEDS: traMADol 50 MG Tab PO SCH (08:52)
[2024-04-26] MEDS: Diltiazem 120 MG Cap.CD PO SCH (08:53)
[2024-04-26] MEDS: FLUoxetine 20 MG Cap PO SCH (08:53)
[2024-04-26] MEDS: Calcium Carbonate/Vitamin D3 1500 MG-400 Units Tab PO SCH (08:54)
[2024-04-26] MEDS: Ascorbic Acid 500 MG Tab PO SCH (08:54)
[2024-04-26] MEDS: atorvaSTATin 20 MG Tab PO SCH (08:54)
[2024-04-26] MEDS: OMEPRAZOLE 40 MG PO SCH (08:55)
[2024-04-26] MEDS: CARBIDOPA PO SCH (08:55)
[2024-04-26] MEDS: LEVODOPA PO SCH (08:55)
[2024-04-26] MEDS: Carboxymethylcellulose Sodium 0.5% Ophth Soln 15 ML Bottle EYEBOTH SCH (08:56)
[2024-04-26] MEDS: Ketorolac 30 MG/ML SDV IVPUSH ONE (13:13)
[2024-04-26] MEDS: Acetaminophen 325 MG Tab PO PRN (13:17)
[2024-04-26 14:48] LABS: HEMATOCRIT 39.1 % (37.0-47.0); MEAN CORPUSCULAR HEMOGLOBIN 32.1 pg (27.0-32.0); MEAN CORPUSCULAR HGB CONC 33.2 g/dL (31.0-35.0); MEAN PLATELET VOLUME 9.4 fL (6.0-10.0); RED BLOOD CELL COUNT 4.05 M/uL (3.80-5.80); RED CELL DISTRIBUTION WIDTH 12.5 % (11.0-16.0); WHITE BLOOD CELL COUNT,WBC 11.1 K/uL (4.0-11.0)
[2024-04-26 15:08] LABS: ANION GAP 9.2 mmol/L (5.0-15.0); CALCIUM 8.6 mg/dL (8.5-10.1); CARBON DIOXIDE,CO2 29.6 mmol/L (21.0-32.0); CREATININE 0.5 mg/dL (0.55-1.02); EST CRCL DRUG DOSING (CG) 58.69 mL/min; POTASSIUM,K 3.8 mmol/L (3.5-5.1); TROPONIN I HIGH SENSITIVITY 60.1 pg/ml (<=60.4)
[2024-04-26] MEDS: Melatonin 3 MG Tab PO SCH (19:45)
[2024-04-26] MEDS: rOPINIRole 1 MG Tab PO SCH (19:45)
[2024-04-26] MEDS: Heparin Sodium 5,000 Units/ML Vial SUBCUT SCH (19:46)
[2024-04-26] MEDS: ARIPIPRAZOLE 10 MG PO SCH (19:50)
[2024-04-26] MEDS: Fluticasone NASAL Spray 16 GM Bottle NASBOTH SCH (19:51)
[2024-04-26] MEDS ORDERED: Non-Formulary Medication 1 Each (Aripiprazole [Abilify] 15 MG Tablet) PO SCH (20:00)
[2024-04-27] MEDS: FLU (Fluad Triv) TS24-25 (65UP)/MF59C/PF 45 MCG/0.5 ML Syringe IM ONE (11:45)
[2024-04-27] MEDS: LORazepam 2 MG/ML SDV IVPUSH PRN (11:47)
[2024-04-27] MEDS: fentaNYL 12 MCG/HR Transdermal Patch TRDERM SCH (18:13)
[2024-04-28] MEDS: Sodium Chloride 0.9% 1,000 ML IV SCH ×2 (07:54→17:54)
[2024-04-28] MEDS: Diltiazem 25 MG/5 ML SDV IVPUSH ONE (09:40)
[2024-04-28 11:11] LABS: BASOPHILS ABSOLUTE AUTO 0.02 K/uL (0.02-0.10); BASOPHILS PERCENT AUTO 0.3 % (0.0-0.5); EOSINOPHILS ABSOLUTE AUTO 0.41 K/uL (0.04-0.40); EOSINOPHILS PERCENT AUTO 5.6 % (1.0-5.0); HEMATOCRIT 38.4 % (37.0-47.0); HEMOGLOBIN 12.7 g/dL (11.5-16.5); LYMPHOCYTES ABSOLUTE AUTO 0.94 K/uL (1.50-4.00); LYMPHOCYTES PERCENT AUTO 12.8 % (20.0-40.0); MEAN CORPUSCULAR HEMOGLOBIN 32.2 pg (27.0-32.0); MEAN CORPUSCULAR HGB CONC 33.1 g/dL (31.0-35.0); MEAN CORPUSCULAR VOLUME 98 fL (76-96); MEAN PLATELET VOLUME 9.3 fL (6.0-10.0); MONOCYTES ABSOLUTE AUTO 0.63 K/uL (0.20-0.80); MONOCYTES PERCENT AUTO 8.6 % (3.0-10.0); NEUTROPHILS ABSOLUTE AUTO 5.36 K/uL (2.00-7.50); NEUTROPHILS PERCENT AUTO 72.7 % (45.0-70.0); PLATELET COUNT,PLT 163 K/uL (150-500); RED BLOOD CELL COUNT 3.94 M/uL (3.80-5.80); RED CELL DISTRIBUTION WIDTH 12.6 % (11.0-16.0); WHITE BLOOD CELL COUNT,WBC 7.4 K/uL (4.0-11.0)
[2024-04-28 11:26] LABS: ANION GAP 6.5 mmol/L (5.0-15.0); BUN/CREATININE RATIO 39.4 (6-25); CALCIUM 7.9 mg/dL (8.5-10.1); CARBON DIOXIDE,CO2 29.2 mmol/L (21.0-32.0); CREATININE 0.33 mg/dL (0.55-1.02); EST CRCL DRUG DOSING (CG) 88.92 mL/min; MAGNESIUM 1.9 mg/dL (1.8-2.4); POTASSIUM,K 3.7 mmol/L (3.5-5.1)
[2024-04-28] MEDS: Diltiazem 25 MG/5 ML SDV IVPUSH SCH (11:42)
[2024-04-28] MEDS: Digoxin 500 MCG/2 ML Amp IVPUSH ONE ×2 (12:30→14:39)
[2024-04-28] MEDS: Diltiazem 50 MG/10 ML SDV IVPUSH ONE (12:38)
[2024-04-28] MEDS ORDERED: Diltiazem 100 MG in Sodium Chloride 0.9% 100 ML IV SCH (14:45)
[2024-04-29] MEDS: Morphine Oral Concentrate 20 MG/ML 30 ML Bottle SL PRN ×2 (11:04→17:08)
[2024-04-29] MEDS: Dextrose 5%-Lactated Ringers 1,000 ML IV SCH (17:54)
[2024-04-29] MEDS: LORazepam 1 MG Tab PO PRN (17:54)
[2024-04-29] MEDS ORDERED: Acetaminophen 650 MG Supp RECTAL PRN (18:24)
[2024-04-29] MEDS: Atropine 1% Ophth Soln 5 ML Bottle SL SCH ×2 (20:00→22:02)
[2024-04-29] MEDS: Morphine Oral Concentrate 20 MG/ML 30 ML Bottle SL SCH (20:06)
[2024-04-30 04:28] VITALS: BP 119/55; PULSE 71
== END 2024-04-30 11:46 | DRG 536 ==
LOC: LB.ED 21:21 → LB.MS 23:56 → LB.ED 04-26 00:10
PROVIDERS: ADMIT Surgery; ATTEND Surgery
PROC: 3E0234Z Introduction of Serum, Toxoid and Vaccine into Muscle, Percutaneous Approach (ICD-10-PCS; principal; 2024-04-26)
PROC: 0T9B70Z Drainage of Bladder with Drainage Device, Via Natural or Artificial Opening (ICD-10-PCS; 2024-04-26)
DX: S72.141A Displaced intertrochanteric fracture of right femur, initial encounter for closed fracture (principal); F03.93 Unspecified dementia, unspecified severity, with mood disturbance; F03.94 Unspecified dementia, unspecified severity, with anxiety; S72.121A Displaced fracture of lesser trochanter of right femur, initial encounter for closed fracture; Z66 Do not resuscitate; E78.00 Pure hypercholesterolemia, unspecified; Z51.5 Encounter for palliative care; I10 Essential (primary) hypertension; K21.9 Gastro-esophageal reflux disease without esophagitis; M19.90 Unspecified osteoarthritis, unspecified site; M54.9 Dorsalgia, unspecified; G89.29 Other chronic pain; G43.909 Migraine, unspecified, not intractable, without status migrainosus; H91.90 Unspecified hearing loss, unspecified ear; H54.7 Unspecified visual loss; I48.91 Unspecified atrial fibrillation; M81.0 Age-related osteoporosis without current pathological fracture; W19.XXXA Unspecified fall, initial encounter; Z91.040 Latex allergy status; Z88.0 Allergy status to penicillin; Z88.5 Allergy status to narcotic agent; Z88.8 Allergy status to other drugs, medicaments and biological substances; Z79.899 Other long term (current) drug therapy; Z79.82 Long term (current) use of aspirin; Z86.73 Personal history of transient ischemic attack (TIA), and cerebral infarction without residual deficits; Z98.890 Other specified postprocedural states; Z99.3 Dependence on wheelchair; Z23 Encounter for immunization
CPT/HCPCS: 73502; 73700; 96374; 99285; J2405; 36415; 51702; 80048; 83735; 84484; 85025; 85027; 90653; 93005; 96375; 99222; 99232; 99239; A9270-GY; G0008; J1160; J1644; J1885; J2060; J2270; J3490; J7030; J7121; U0002